=== PATIENT | female | born 1980 | race Caucasian/White ===

== ENCOUNTER 2017-12-22 19:40 | Inpatient (IN) | payer OTHER ==
--- NOTE | 2017-12-22 20:41 | OBADHP ---
Datetime: 12/22/2017 20:26 Admit Comment, IP Provider: 37yo edc 12/16 by 11 wk us presents for sched'd induction pobhx: denies pshx: denies nkda; denies food allergies medic: pnv shx:denies etoh, illicit drugs or tobacco I: 40.6wks inductiona p: admit for cervidel per dr ahumada Pelvic Type - PN: Adequate Extremities - PN: Normal Abdomen - PN: Normal Back - PN: Normal Lungs - PN: Normal Heart - PN: Abnormal Neurologic - PN: Normal HEENT - PN: Normal General - PN: Normal FHR - Baseline A Provider: 130 Membranes, Provider: Intact Comments, ACOG Physical Exam: gbs neg; hiv Vital Signs Provider Details: p 90-120 IP Chief Complaint: Scheduled induction of labor NICHD Variability Prov Fetus A: Moderate 6-25bpm NICHD Accel Fetus A IP Provider: [id number] FHR Category Provider Fetus A: Category I NICHD Decel Fetus A IP Provider: None Genitourinary Exam: Normal EGA AdmitDate IP: 40.6 IP Adm Impression: Postterm, intrauterine IP Admit Plan: Admit to unit; Initiate labor induction protocol
[2017-12-22] MEDS ORDERED: Lactated Ringer's 1,000 ML IV SCH (21:45)
[2017-12-22 22:32] LABS: BASO % 0.6 % (0.0-2.0); EOS # 0.1 K/uL (0.0-0.7); EOS % 1.6 % (0.0-4.0); HEMOGLOBIN 13.4 g/dL (11.0-16.0); LYMPH # 1.7 K/uL (1.0-4.3); LYMPH % 22.7 % (20.0-40.0); MEAN CELL VOLUME 93.7 fL (81.0-99.0); MEAN CORPUSCULAR HEMOGLOBIN 31.8 pg (27.0-31.0); MEAN CORPUSCULAR HGB CONC 33.9 g/dL (33.0-37.0); MEAN PLATELET VOLUME 8.1 fL (7.2-11.7); MONO # 0.5 K/uL (0.0-0.8); MONO % 6.6 % (0.0-10.0); NEUT # 5.2 K/uL (1.8-7.0); NEUT % 68.5 % (50.0-75.0); NRBC % 0.1 % (0.0-2.0); RBC 4.22 Mil/uL (3.80-5.20); RED CELL DISTRIBUTION WIDTH 13.1 % (11.5-14.5); WHITE BLOOD COUNT 7.6 K/uL (4.8-10.8)
[2017-12-23] MEDS: Lactated Ringer's 1,000 ML IV SCH ×2 (07:10→23:24)
--- NOTE | 2017-12-23 09:46 | OBPN ---
Datetime: 12/23/2017 09:42 IP Progress Impression: Normal progression of labor IP Informed Consent Obtain: Vaginal Delivery IP Procedures: Artificial ROM IP Progress Plan: Continue present management Membranes, Provider: Ruptured Amniotic Fluid Color, Provider: Clear FHR - Baseline A Provider: 150 Gestation - Est Wks by US: 41.0 Presentation-Admit: Vertex IP Progress Note Comment: pt iol fo rpost edc s/p cervidl 2cm s/p epdiural rapdily pgressed to 5cm variable not improved iwt hoxygen, left later AROM , clear 10cm VS as aboe V e10/100/0 A/P @ 41 wks GA Fully dilated iwth cat II -oxygen, left lateral IVH -strat pushing -antiicps Vital Signs Provider: Reviewed; Within Normal Limits NICHD Variability Prov Fetus A: Moderate 6-25bpm Dilatation, Provider: 8 Effacement, Provider: 100 Station, Provider: 0 NICHD Decel Fetus A IP Provider: Variable Datetime: 12/22/2017 20:26 Vital Signs Provider Details: p 90-120 NICHD Accel Fetus A IP Provider: [id number] FHR Category Provider Fetus A: Category I
[2017-12-23 10:31] LABS: SQUAMOUS EPITHIAL 2 /hpf (0-5); URINE BACTERIA RARE (<OCC); URINE BILIRUBIN NEGATIVE (NEGATIVE); URINE BLOOD 1+ (NEGATIVE); URINE CLARITY Clear (Clear); URINE COLOR Yellow (YELLOW); URINE GLUCOSE (UA) 1+ mg/dL (Normal); URINE LEUKOCYTE ESTERASE 1+ Leu/uL (Negative); URINE PROTEIN NEGATIVE (NEGATIVE); URINE UROBILINOGEN NORMAL mg/dL (0.2-1.0)
[2017-12-23] MEDS ORDERED: Thrombin Topical 20,000 Intl Units Spray Kit TOP ONE ×2 (11:48→13:00)
[2017-12-23] MEDS ORDERED: Thrombin Topical 5,000 Int Units Spray Kit TOP ONE ×2 (11:50)
[2017-12-23] MEDS ORDERED: ceFAZolin IV 2 gm in Dextrose 2 GM/50 ML BAG IVPB ONE (12:55)
--- NOTE | 2017-12-23 13:28 | CP.PCM.CON ---
<Esther Yuan - Last Filed: 12/23/17 19:22> History of Present Illness - History of Present Illness History of Present Illness: Critical Care Consult Note for Dr. Juan Jose Emmanuel Reason for consult: s/p vaginal delivery- hemorrhage s/p D/C and hysterectomy in DIC. This is a 37 year old female with PMHx of , who is now s/p post term induced vaginal delivery on 12/23/17 @ 10am who had hemorrhage s/p DC s /p hysterectomy admitted to the ICU intubated on PRVC 16/ 100/ 400/ 5 with Fentanyl, Versed. She received 5 units PRBCs and 1 FFP prior to arrival to ICU. Fibrinogen 57. Patient found to be in DIC. Massive transfusion protocol initiated 4 units PRBCs, 3 FFPs, 1 PLTs, and total 25 cryoprecipitate. Left IJ TLC was inserted, started on Levophed. Initiated empiric antibiotics. PMHx: Asthma PSHx: Unknown Meds: Unknown All: Unknown SHx: Unknown FHx: Unknown Meds Allergies/Adverse Reactions: Allergies Allergy/AdvReac Type Severity Reaction Status Date / Time ibuprofen Allergy Severe SHORTNESS Verified 12/22/17 22:10 OF BREATH mefenamic acid Allergy Severe SHORTNESS Verified 12/22/17 22:10 OF BREATH - Medications Medications: Current Medications Acetaminophen (Tylenol 650 Mg Supp) 650 mg NM Q6 PRN PRN Reason: Fever >100.4 F Lactated Ringer's (Lactated Ringer's) 1,000 mls @ 125 mls/hr IV .Q8H KELLEY Physical Exam - Constitutional Appears: Toxic - Head Exam Head Exam: ATRAUMATIC, NORMAL INSPECTION, NORMOCEPHALIC - Eye Exam Eye Exam: EOMI, Normal appearance, PERRL Pupil Exam: NORMAL ACCOMODATION - ENT Exam ENT Exam: Mucous Membranes Dry - Respiratory Exam Respiratory Exam: Clear to Auscultation Bilateral - Cardiovascular Exam Cardiovascular Exam: Tachycardia - GI/Abdominal Exam GI & Abdominal Exam: Normal Bowel Sounds, Soft - Rectal Exam Rectal Exam: Deferred - Extremities Exam Extremities exam: Positive for: normal inspection, pedal pulses present. Negative for: pedal edema, tenderness - Back Exam Back exam: NORMAL INSPECTION - Neurological Exam Neurological exam: Altered - Skin Skin Exam: Dry, Pallor, Warm Results - Labs Result Diagrams: 12/23/17 16:04 12/23/17 14:04 Labs: Laboratory Results - last 24 hr 12/22/17 12/22/17 12/22/17 22:24 22:24 22:24 WBC 7.6 RBC 4.22 Hgb 13.4 Hct 39.6 MCV 93.7 MCH 31.8 H MCHC 33.9 RDW 13.1 Plt Count 307 MPV 8.1 Neut % (Auto) 68.5 Lymph % (Auto) 22.7 Osborne % (Auto) 6.6 Eos % (Auto) 1.6 Baso % (Auto) 0.6 Neut # (Auto) 5.2 Lymph # (Auto) 1.7 Osborne # (Auto) 0.5 Eos # (Auto) 0.1 Baso # (Auto) 0.0 Urine Color Urine Clarity Urine pH Ur Specific [place] Urine Protein Urine Glucose (UA) Urine Ketones Urine Blood Urine Nitrate Urine Bilirubin Urine Urobilinogen Ur Leukocyte Esterase Urine WBC (Auto) Urine RBC (Auto) Ur Squamous Epith Cells Urine Bacteria RPR Nonreactive Hep Bs Antigen Blood Type B POSITIVE Antibody Screen Negative 12/23/17 12/23/17 12/23/17 10:09 10:09 11:12 WBC RBC Hgb Hct MCV MCH MCHC RDW Plt Count MPV Neut % (Auto) Lymph % (Auto) Osborne % (Auto) Eos % (Auto) Baso % (Auto) Neut # (Auto) Lymph # (Auto) [place] # (Auto) Eos # (Auto) Baso # (Auto) Urine Color Yellow Urine Clarity Clear Urine pH 6.0 Ur Specific [place] 1.013 Urine Protein Negative Urine Glucose (UA) 1+ Urine Ketones Negative Urine Blood 1+ H Urine Nitrate Negative Urine Bilirubin Negative Urine Urobilinogen Normal Ur Leukocyte Esterase 1+ H Urine WBC (Auto) 4 Urine RBC (Auto) 1 Ur Squamous Epith Cells 2 Urine Bacteria Rare RPR Hep Bs Antigen Negative Blood Type B POSITIVE Antibody Screen Negative Assessment & Plan - Assessment and Plan (Free Text) Assessment: This is a 37 year old female with PMHx of , who is now s/p post term induced vaginal delivery on 12/23/17 @ 10am who had hemorrhage s/p DC s /p hysterectomy admitted to the ICU intubated on PRVC 16/ 100/ 400/ 5 with Fentanyl, Versed. She received 5 units PRBCs and 1 FFP prior to arrival to ICU. Fibrinogen 57. Patient found to be in DIC. Massive transfusion protocol initiated 4 units PRBCs, 3 FFPs, 1 PLTs, and total 25 cryoprecipitate. Left IJ TLC was inserted, started on Levophed. Initiated empiric antibiotics. Plan: Neuro: - Intubated on PRVC 16/ 100/ 400/ 5 - Sedated with Fentanyl, Versed Cardio: A: Hypovolemic shock - LUKAS - negative - F/U ECHO Pulm: - Intubated on PRVC 16/ 100/ 400/ 5 - Sedated with Fentanyl, Versed ID: A: SIRS - Leukocytosis, left shift, bandemia, lactate 2.8 --> - Started Doxy, Rocephin, and Vanco empirically [employer] COORDINATOR: A: , Hemorrhage S/P D&C, S/P Hysterectomy in DIC - , unable to achieve hemostasis with Cytotec, Pitocin, Methergine - S/P D&C received Thrombin - continue to hemorrhage - S/P Hysterectomy in DIC, fibrinogen 57 - Massive transfusion protocol initiated 4 units PRBCs, 3 FFPs, 1 PLTs, and total 25 cryoprecipitate Heme/Onc: A: Acute Anemia 2/2 Hemorrhage - Baseline H/H: 13.4/ 39.6 - Started on Levophed - Ordered hemophilia workup Prophylaxis - SCDs, VTE c/i due to active hemorrhage - Lines: Left IJ TLC was inserted DW Dr. Juan Jose Emmanuel, Esther Yuan DO, PGY-1 Central Line Placement - Central Line Placement Indication: Emergent IV Access Central Line Placement: Left: Internal Jugular The Area Was Thoroughly Prepared With: Chlorhexidine, Draped Using Sterile Technique Area Was Locally Anesthetized With: Lidocaine 1% Procedure: Triple Lumen, Placed Using Standard Seldinger Technique, Catheter Was Sewn Into Place, Sterile Dressing Placed Over Line, Procedure Tolerated Well , CXR Ordered To Confirm Placement <Trevon Emmanuel - Last Filed: 12/24/17 13:21> Meds - Medications Medications: Current Medications Acetaminophen (Tylenol 650 Mg Supp) 650 mg NM Q6 PRN PRN Reason: Fever >100.4 F Hydromorphone HCl (Dilaudid) 0.5 mg IVP Q6H PRN PRN Reason: Pain, severe (8-10) Last Admin: 12/24/17 10:55 Dose: 0.5 mg Doxycycline Hyclate 100 mg/ (Sodium Chloride) 100 mls @ 100 mls/hr IVPB Q12H [facility] PRN Reason: Protocol Last Admin: 12/24/17 05:19 Dose: 100 mls/hr Sodium Chloride (Sodium Chloride 0.9%) 1,000 mls @ 75 mls/hr IV .[id number] [facility] Last Admin: 12/24/17 08:35 Dose: 75 mls/hr Piperacillin Sod/Tazobactam Sod (Zosyn 2.25 Gm Iv Premix) 2.25 gm in 50 mls @ 100 mls/hr IVPB Q6H [facility] PRN Reason: Protocol Last Admin: 12/24/17 10:00 Dose: 100 mls/hr Results - Vital Signs Recent Vital Signs: Last Vital Signs Temp 99.6 F 12/24/17 07:30 Pulse 97 H 12/24/17 11:02 Resp 19 12/24/17 11:02 BP 115/57 L 12/24/17 11:02 Pulse Ox 100 12/24/17 11:02 - Labs Result Diagrams: 12/24/17 04:33 12/24/17 04:33 Labs: Laboratory Results - last 24 hr 12/23/17 12/23/17 12/23/17 10:09 11:12 14:04 WBC RBC Hgb Hct MCV MCH MCHC RDW Plt Count MPV Neut % (Auto) Lymph % (Auto) Os[place] % (Auto) Eos % (Auto) Baso % (Auto) Neut # (Auto) Lymph # (Auto) [place] # (Auto) Eos # (Auto) Baso # (Auto) Neutrophils % (Manual) Band Neutrophils % Lymphocytes % (Manual) Monocytes % (Manual) Metamyelocytes % Platelet Estimate Hypochromasia (manual) Poikilocytosis (manual Anisocytosis (manual) PT 17.4 H INR 1.6 APTT 42 H Fibrinogen 57 L Puncture Site pCO2 pO2 HCO3 ABG pH ABG Total CO2 ABG O2 Saturation ABG Base Excess Gabriel Test ABG Potassium A-a O2 Difference Respiratory Index Glucose Lactate Vent Mode Mechanical Rate FiO2 Tidal Volume PEEP Sodium Potassium Chloride Carbon Dioxide Anion Gap BUN Creatinine Est GFR ( Amer) Est GFR (Non-Af Amer) POC Glucose (mg/dL) Random Glucose Lactic Acid Calcium Phosphorus Magnesium Total Bilirubin AST ALT Alkaline Phosphatase Troponin I NT-Pro-B Natriuret Pep Total Protein Albumin Globulin Albumin/Globulin Ratio Arterial Blood Potassium Urine Color Urine Clarity Urine pH Ur Specific [place] Urine Protein Urine Glucose (UA) Urine Ketones Urine Blood Urine Nitrate Urine Bilirubin Urine Urobilinogen Ur Leukocyte Esterase Urine WBC (Auto) Urine RBC (Auto) Random Vancomycin RPR Nonreactive Rubella IgG Antibody Positive Blood Type B POSITIVE Antibody Screen Negative 12/23/17 12/23/17 12/23/17 14:04 16:04 16:35 WBC 14.1 H D RBC 3.15 L Hgb 9.3 L D Hct 27.5 L MCV 87.4 D MCH 29.5 MCHC 33.7 RDW 15.1 H Plt Count 102 L D MPV 7.3 Neut % (Auto) 82.8 H Lymph % (Auto) 9.7 L [place] % (Auto) 7.2 Eos % (Auto) 0.0 Baso % (Auto) 0.3 Neut # (Auto) 11.7 H Lymph # (Auto) 1.4 [place] # (Auto) 1.0 H Eos # (Auto) 0.0 Baso # (Auto) 0.0 Neutrophils % (Manual) 71 Band Neutrophils % 15 H* Lymphocytes % (Manual) 9 L Monocytes % (Manual) 5 Metamyelocytes % Platelet Estimate Slightly decreased L Hypochromasia (manual) Poikilocytosis (manual Anisocytosis (manual) PT INR APTT Fibrinogen Puncture Site Fem line pCO2 30 L pO2 501 H HCO3 17.4 L ABG pH 7.31 L ABG Total CO2 16.0 L ABG O2 Saturation 99.9 H ABG Base Excess -9.8 L Gabriel Test Na ABG Potassium 5.7 H A-a O2 Difference 175.0 Respiratory Index 0.3 Glucose 131 H Lactate 2.8 H Vent Mode Prvc Mechanical Rate 16 FiO2 100.0 Tidal Volume 400 PEEP 5 Sodium 138 133.0 Potassium 4.5 Chloride 109 H 114.0 H Carbon Dioxide 18 L Anion Gap 16 BUN 8 Creatinine 0.7 Est GFR ( Amer) > 60 Est GFR (Non-Af Amer) > 60 POC Glucose (mg/dL) Random Glucose 115 H Lactic Acid Calcium 8.3 L Phosphorus Magnesium Total Bilirubin AST ALT Alkaline Phosphatase Troponin I 0.0550 NT-Pro-B Natriuret Pep 53.6 Total Protein Albumin Globulin Albumin/Globulin Ratio Arterial Blood Potassium 5.7 H Urine Color Urine Clarity Urine pH Ur Specific [place] Urine Protein Urine Glucose (UA) Urine Ketones Urine Blood Urine Nitrate Urine Bilirubin Urine Urobilinogen Ur Leukocyte Esterase Urine WBC (Auto) Urine RBC (Auto) Random Vancomycin RPR Rubella IgG Antibody Blood Type Antibody Screen 12/23/17 12/23/17 12/23/17 17:25 19:53 20:20 WBC 13.0 H RBC 3.02 L Hgb 8.9 L Hct 26.0 L MCV 86.1 MCH 29.3 MCHC 34.1 RDW 14.9 H Plt Count 84 L MPV 7.6 Neut % (Auto) 86.7 H Lymph % (Auto) 7.5 L [place] % (Auto) 5.7 Eos % (Auto) 0.0 Baso % (Auto) 0.1 Neut # (Auto) 11.2 H Lymph # (Auto) 1.0 [place] # (Auto) 0.7 Eos # (Auto) 0.0 Baso # (Auto) 0.0 Neutrophils % (Manual) 69 Band Neutrophils % 15 H* Lymphocytes % (Manual) 10 L Monocytes % (Manual) 4 Metamyelocytes % 2 H Platelet Estimate Decreased L Hypochromasia (manual) Poikilocytosis (manual Anisocytosis (manual) PT INR APTT Fibrinogen Puncture Site pCO2 pO2 HCO3 ABG pH ABG Total CO2 ABG O2 Saturation ABG Base Excess Gabriel Test ABG Potassium A-a O2 Difference Respiratory Index Glucose Lactate Vent Mode Mechanical Rate FiO2 Tidal Volume PEEP Sodium Potassium Chloride Carbon Dioxide Anion Gap BUN Creatinine Est GFR ( Amer) Est GFR (Non-Af Amer) POC Glucose (mg/dL) 121 H 121 H Random Glucose Lactic Acid Calcium Phosphorus Magnesium Total Bilirubin AST ALT Alkaline Phosphatase Troponin I NT-Pro-B Natriuret Pep Total Protein Albumin Globulin Albumin/Globulin Ratio Arterial Blood Potassium Urine Color Urine Clarity Urine pH Ur Specific [place] Urine Protein Urine Glucose (UA) Urine Ketones Urine Blood Urine Nitrate Urine Bilirubin Urine Urobilinogen Ur Leukocyte Esterase Urine WBC (Auto) Urine RBC (Auto) Random Vancomycin RPR Rubella IgG Antibody Blood Type Antibody Screen 12/23/17 12/23/17 12/23/17 20:20 20:20 20:20 WBC RBC Hgb Hct MCV MCH MCHC RDW Plt Count MPV Neut % (Auto) Lymph % (Auto) [place] % (Auto) Eos % (Auto) Baso % (Auto) Neut # (Auto) Lymph # (Auto) [place] # (Auto) Eos # (Auto) Baso # (Auto) Neutrophils % (Manual) Band Neutrophils % Lymphocytes % (Manual) Monocytes % (Manual) Metamyelocytes % Platelet Estimate Hypochromasia (manual) Poikilocytosis (manual Anisocytosis (manual) PT 13.2 H INR 1.2 APTT 32 D Fibrinogen Puncture Site pCO2 pO2 HCO3 ABG pH ABG Total CO2 ABG O2 Saturation ABG Base Excess Gabriel Test ABG Potassium A-a O2 Difference Respiratory Index Glucose Lactate Vent Mode Mechanical Rate FiO2 Tidal Volume PEEP Sodium 136 Potassium 6.2 H* D Chloride 111 H Carbon Dioxide 17 L Anion Gap 14 BUN 15 Creatinine 1.2 Est GFR ( Amer) > 60 Est GFR (Non-Af Amer) 51 POC Glucose (mg/dL) Random Glucose 111 H Lactic Acid Calcium 9.3 Phosphorus Magnesium Total Bilirubin 3.3 H AST 51 H ALT 28 Alkaline Phosphatase 46 Troponin I NT-Pro-B Natriuret Pep Total Protein 4.0 L Albumin 1.9 L Globulin 2.1 L Albumin/Globulin Ratio 0.9 L Arterial Blood Potassium Urine Color Sabrina Urine Clarity Hazy Urine pH 6.0 Ur Specific [place] 1.017 Urine Protein 2+ H Urine Glucose (UA) 1+ Urine Ketones Negative Urine Blood 2+ H Urine Nitrate Negative Urine Bilirubin Negative Urine Urobilinogen Normal Ur Leukocyte Esterase Neg Urine WBC (Auto) 2 Urine RBC (Auto) 3801 H Random Vancomycin RPR Rubella IgG Antibody Blood Type Antibody Screen 12/23/17 12/23/17 12/23/17 21:34 23:22 23:22 WBC 12.0 H RBC 2.82 L Hgb 8.3 L Hct 24.3 L MCV 86.2 MCH 29.5 MCHC 34.2 RDW 15.2 H Plt Count 78 L MPV 7.8 Neut % (Auto) 85.7 H Lymph % (Auto) 7.8 L [place] % (Auto) 6.2 Eos % (Auto) 0.0 Baso % (Auto) 0.3 Neut # (Auto) 10.3 H Lymph # (Auto) 0.9 L [place] # (Auto) 0.7 Eos # (Auto) 0.0 Baso # (Auto) 0.0 Neutrophils % (Manual) Band Neutrophils % Lymphocytes % (Manual) Monocytes % (Manual) Metamyelocytes % Platelet Estimate Hypochromasia (manual) Poikilocytosis (manual Anisocytosis (manual) PT 12.5 H INR 1.1 APTT 31 Fibrinogen Puncture Site Fem line pCO2 31 L pO2 273 H HCO3 18.1 L ABG pH 7.32 L ABG Total CO2 17.0 L ABG O2 Saturation 99.3 H ABG Base Excess -8.9 L Gabriel Test Na ABG Potassium 5.8 H A-a O2 Difference 116.0 Respiratory Index 0.4 Glucose 98 Lactate 3.0 H Vent Mode Prvc Mechanical Rate 22 FiO2 60.0 Tidal Volume 400 PEEP 5 Sodium 135.0 Potassium Chloride 113.0 H Carbon Dioxide Anion Gap BUN Creatinine Est GFR ( Amer) Est GFR (Non-Af Amer) POC Glucose (mg/dL) Random Glucose Lactic Acid Calcium Phosphorus Magnesium Total Bilirubin AST ALT Alkaline Phosphatase Troponin I NT-Pro-B Natriuret Pep Total Protein Albumin Globulin Albumin/Globulin Ratio Arterial Blood Potassium 5.8 H Urine Color Urine Clarity Urine pH Ur Specific [place] Urine Protein Urine Glucose (UA) Urine Ketones Urine Blood Urine Nitrate Urine Bilirubin Urine Urobilinogen Ur Leukocyte Esterase Urine WBC (Auto) Urine RBC (Auto) Random Vancomycin RPR Rubella IgG Antibody Blood Type Antibody Screen 12/23/17 12/23/17 12/24/17 23:22 23:43 04:14 WBC RBC Hgb Hct MCV MCH MCHC RDW Plt Count MPV Neut % (Auto) Lymph % (Auto) [place] % (Auto) Eos % (Auto) Baso % (Auto) Neut # (Auto) Lymph # (Auto) [place] # (Auto) Eos # (Auto) Baso # (Auto) Neutrophils % (Manual) Band Neutrophils % Lymphocytes % (Manual) Monocytes % (Manual) Metamyelocytes % Platelet Estimate Hypochromasia (manual) Poikilocytosis (manual Anisocytosis (manual) PT INR APTT Fibrinogen Puncture Site pCO2 pO2 HCO3 ABG pH ABG Total CO2 ABG O2 Saturation ABG Base Excess Gabriel Test ABG Potassium A-a O2 Difference Respiratory Index Glucose Lactate Vent Mode Mechanical Rate FiO2 Tidal Volume PEEP Sodium 134 Potassium 6.2 H* Chloride 111 H Carbon Dioxide 17 L Anion Gap 11 BUN 16 Creatinine 1.3 H Est GFR ( Amer) 56 Est GFR (Non-Af Amer) 46 POC Glucose (mg/dL) 97 111 H Random Glucose 89 Lactic Acid Calcium 8.4 L Phosphorus Magnesium Total Bilirubin AST ALT Alkaline Phosphatase Troponin I NT-Pro-B Natriuret Pep Total Protein Albumin Globulin Albumin/Globulin Ratio Arterial Blood Potassium Urine Color Urine Clarity Urine pH Ur Specific [place] Urine Protein Urine Glucose (UA) Urine Ketones Urine Blood Urine Nitrate Urine Bilirubin Urine Urobilinogen Ur Leukocyte Esterase Urine WBC (Auto) Urine RBC (Auto) Random Vancomycin RPR Rubella IgG Antibody Blood Type Antibody Screen 12/24/17 12/24/17 12/24/17 04:33 04:33 04:33 WBC 11.2 H RBC 2.92 L Hgb 8.5 L Hct 24.7 L MCV 84.8 MCH 29.0 MCHC 34.2 RDW 15.7 H Plt Count 67 L MPV 8.0 Neut % (Auto) 87.6 H Lymph % (Auto) 7.5 L [place] % (Auto) 4.7 Eos % (Auto) 0.0 Baso % (Auto) 0.2 Neut # (Auto) 9.8 H Lymph # (Auto) 0.8 L [place] # (Auto) 0.5 Eos # (Auto) 0.0 Baso # (Auto) 0.0 Neutrophils % (Manual) 84 H Band Neutrophils % 7 H Lymphocytes % (Manual) 5 L Monocytes % (Manual) 4 Metamyelocytes % Platelet Estimate Decreased L Hypochromasia (manual) Slight Poikilocytosis (manual Slight Anisocytosis (manual) Slight PT INR APTT Fibrinogen 356 D Puncture Site pCO2 pO2 HCO3 ABG pH ABG Total CO2 ABG O2 Saturation ABG Base Excess Gabriel Test ABG Potassium A-a O2 Difference Respiratory Index Glucose Lactate Vent Mode Mechanical Rate FiO2 Tidal Volume PEEP Sodium 135 Potassium 5.4 H Chloride 111 H Carbon Dioxide 18 L Anion Gap 11 BUN 19 H Creatinine 1.8 H Est GFR ( Amer) 38 Est GFR (Non-Af Amer) 32 POC Glucose (mg/dL) Random Glucose 103 Lactic Acid Calcium 8.2 L Phosphorus 5.3 H Magnesium 1.1 L Total Bilirubin 1.9 H AST 61 H ALT 33 Alkaline Phosphatase 45 Troponin I NT-Pro-B Natriuret Pep Total Protein 3.7 L Albumin 1.7 L Globulin 2.0 L Albumin/Globulin Ratio 0.9 L Arterial Blood Potassium Urine Color Urine Clarity Urine pH Ur Specific [place] Urine Protein Urine Glucose (UA) Urine Ketones Urine Blood Urine Nitrate Urine Bilirubin Urine Urobilinogen Ur Leukocyte Esterase Urine WBC (Auto) Urine RBC (Auto) Random Vancomycin RPR Rubella IgG Antibody Blood Type Antibody Screen 12/24/17 12/24/17 12/24/17 04:33 05:06 08:26 WBC RBC Hgb Hct MCV MCH MCHC RDW Plt Count MPV Neut % (Auto) Lymph % (Auto) [place] % (Auto) Eos % (Auto) Baso % (Auto) Neut # (Auto) Lymph # (Auto) [place] # (Auto) Eos # (Auto) Baso # (Auto) Neutrophils % (Manual) Band Neutrophils % Lymphocytes % (Manual) Monocytes % (Manual) Metamyelocytes % Platelet Estimate Hypochromasia (manual) Poikilocytosis (manual Anisocytosis (manual) PT INR APTT Fibrinogen Puncture Site [place] pCO2 32 L pO2 231 H HCO3 19.7 L ABG pH 7.35 ABG Total CO2 18.7 L ABG O2 Saturation 99.0 H ABG Base Excess -6.8 L Gabriel Test Na ABG Potassium 5.1 A-a O2 Difference 14.0 Respiratory Index 0.1 Glucose 98 Lactate 1.4 Vent Mode Prvc Mechanical Rate 22 FiO2 40.0 Tidal Volume 400 PEEP 5 Sodium 134.0 Potassium Chloride 111.0 H Carbon Dioxide Anion Gap BUN Creatinine Est GFR ( Amer) Est GFR (Non-Af Amer) POC Glucose (mg/dL) 109 Random Glucose Lactic Acid 1.3 Calcium Phosphorus Magnesium Total Bilirubin AST ALT Alkaline Phosphatase Troponin I NT-Pro-B Natriuret Pep Total Protein Albumin Globulin Albumin/Globulin Ratio Arterial Blood Potassium 5.1 Urine Color Urine Clarity Urine pH Ur Specific [place] Urine Protein Urine Glucose (UA) Urine Ketones Urine Blood Urine Nitrate Urine Bilirubin Urine Urobilinogen Ur Leukocyte Esterase Urine WBC (Auto) Urine RBC (Auto) Random Vancomycin RPR Rubella IgG Antibody Blood Type Antibody Screen 12/24/17 12/24/17 10:53 11:23 WBC RBC Hgb Hct MCV MCH MCHC RDW Plt Count MPV Neut % (Auto) Lymph % (Auto) [place] % (Auto) Eos % (Auto) Baso % (Auto) Neut # (Auto) Lymph # (Auto) [place] # (Auto) Eos # (Auto) Baso # (Auto) Neutrophils % (Manual) Band Neutrophils % Lymphocytes % (Manual) Monocytes % (Manual) Metamyelocytes % Platelet Estimate Hypochromasia (manual) Poikilocytosis (manual Anisocytosis (manual) PT INR APTT Fibrinogen Puncture Site pCO2 pO2 HCO3 ABG pH ABG Total CO2 ABG O2 Saturation ABG Base Excess Gabriel Test ABG Potassium A-a O2 Difference Respiratory Index Glucose Lactate Vent Mode Mechanical Rate FiO2 Tidal Volume PEEP Sodium Potassium Chloride Carbon Dioxide Anion Gap BUN Creatinine Est GFR ( Amer) Est GFR (Non-Af Amer) POC Glucose (mg/dL) 107 Random Glucose Lactic Acid Calcium Phosphorus Magnesium Total Bilirubin AST ALT Alkaline Phosphatase Troponin I NT-Pro-B Natriuret Pep Total Protein Albumin Globulin Albumin/Globulin Ratio Arterial Blood Potassium Urine Color Urine Clarity Urine pH Ur Specific [place] Urine Protein Urine Glucose (UA) Urine Ketones Urine Blood Urine Nitrate Urine Bilirubin Urine Urobilinogen Ur Leukocyte Esterase Urine WBC (Auto) Urine RBC (Auto) Random Vancomycin 11.9 RPR Rubella IgG Antibody Blood Type Antibody Screen Assessment & Plan - Assessment and Plan (Free Text) Plan: Around 4:15 Patient brought into ICU intubated. BP 80/40. tachycardic HR near 160s, ventilating at rr of 19. vitals reviewed b/l air entry (+)Ronchi tachy (+)S1 (+)S2 abd:soft, (+)dressing midling ext: edema and cold neuro: sedated ?paralized labs pending A/P Hypotensive shock: fluid resusitation attempted, after unsucessfull, central line placemen, using ultrasounf, eft femoral site reviewed and significant blood seen wrounf the fermoral artery with non-visualization of the femoral vein , right femoral site arterial line, right IJ peripheral line, left IJ collpasing IJ, -urgent massive transfusion protocol started with 10 units of cryo, 3 units of ffp and 4 units of blood and 1 unit of plateelts ordered -?sepsis: urgen started vanco/zosyn and doxycyline -serial lactic -tahycardia: ABG reveals no large A-a gradient, decrease Fio2 requirement, obtain echo, EKG and trop -?coagulopathry: pending pt/int/plt/fibrinogen -Calcium provided by anesthesia during or tranfusion -2 gm calcium to be infused adidtionally during blood transfusions -lactic q4hrs -Patient remains critical -use versed and fentanly for pain and anxiety control while on ventilator -Prognosis guarded as multiple diagnostic tests pending cc time 45 minutes, excluding any time spent on procedures. - Date & Time Date: 12/23/17 Time: 17:00
[2017-12-23 14:22] LABS: INR 1.6
[2017-12-23 14:26] LABS: BLOOD UREA NITROGEN 8 mg/dL (7-17); CALCIUM 8.3 mg/dl (8.6-10.4); GFR AFRICAN-AMERICAN > 60; GFR NON-AFRICAN AMERICAN > 60
[2017-12-23 14:39] LABS: B-TYPE NATRIURETIC PEPTIDE 53.6 pg/mL (0-450)
[2017-12-23 14:41] LABS: PROTHROMBIN TIME 17.4 SECONDS (9.7-12.2)
--- NOTE | 2017-12-23 14:56 | RAD ---
HISTORY: post operative COMPARISON: No prior. FINDINGS: BOWEL: No bowel obstruction appreciated on this exam. BONES: Normal. OTHER FINDINGS: A 6 cm radiopaque ring projects over the inferior hemipelvis. There are 2 radiopaque 13.7 ribbons also present in the central pelvis. IMPRESSION: A pelvic radio opacities are consistent with foreign bodies. Correlate clinically Comments: Study marked for PA review.
[2017-12-23 16:08] LABS: BASO % 0.3 % (0.0-2.0); LYMPH # 1.4 K/uL (1.0-4.3); LYMPH % 9.7 % (20.0-40.0); MEAN CELL VOLUME 87.4 fL (81.0-99.0); MEAN CORPUSCULAR HEMOGLOBIN 29.5 pg (27.0-31.0); MEAN CORPUSCULAR HGB CONC 33.7 g/dL (33.0-37.0); MEAN PLATELET VOLUME 7.3 fL (7.2-11.7); MONO % 7.2 % (0.0-10.0); NEUT # 11.7 K/uL (1.8-7.0); NEUT % 82.8 % (50.0-75.0); NRBC % 0.1 % (0.0-2.0); PLATELET COUNT 102 K/uL (130-400); RBC 3.15 Mil/uL (3.80-5.20); RED CELL DISTRIBUTION WIDTH 15.1 % (11.5-14.5); WHITE BLOOD COUNT 14.1 K/uL (4.8-10.8)
[2017-12-23 16:19] LABS: HEMOGLOBIN 9.3 g/dL (11.0-16.0)
[2017-12-23] MEDS ORDERED: Midazolam 50 mg/10 ml 100 MG in Dextrose 5% In Water 80 ML IV SCH (16:45)
[2017-12-23] MEDS ORDERED: Phytonadione 10 mg/ml Inj (Adult) IV STA (17:13)
[2017-12-23 17:45] LABS: BANDS 15 % (0-2); LYMPHOCYTE 9 % (20-40); MONOCYTE 5 % (0-10); NEUTROPHIL 71 % (50-75); PLATELET ESTIMATE SLIGHTLY DECREASED (NORMAL); TOTAL CELLS COUNTED 100
[2017-12-23 17:45] LABS: ARTERIAL BLOOD GAS HCO3 17.4 mmol/L (21-28); ARTERIAL BLOOD GAS O2 SAT 99.9 % (95-98); ARTERIAL BLOOD GAS PCO2 30 mm/Hg (35-45); ARTERIAL BLOOD GAS PH 7.31 (7.35-7.45); ARTERIAL BLOOD GAS PO2 501 mm/Hg (80-100)
--- NOTE | 2017-12-23 17:47 | OBDS ---
DELIVERY PERSONNEL Delivery Doctor: Juan Jose Emmanuel MD Corporate Traffic Manager: Ayaka Berry RN Anesthesiologist: Dr Llamas MATERNAL INFORMATION Delivery Anesthesia: Epidural Estimated Blood Loss (ml): 800 in delivery/2400 in OR Placenta Cultured: Yes Maternal Complications: Hemorrhage RN Comments: liveborn male ; patient taken to OR for stat D_C and hysterectomy Provider Comments: pt was fully dilated and pushing. verbacl consent given for vacumnand epitstomy g iven Category II tracing . Vacumn applied, head delivered with right mediolateral episotiomy. tight n uchal cord x 1 reducted. atruamtc, spoetneosus deiveyr of anteior followed by posteriore shoulder fol lowed by dleivye rof the body. both oral and nasal passages of the baby were bulb suctioned. umbiclus cord was clmaped and cut. baby hadned ot awaiitng peidatriicna. cord blood and cord gases colelcted and sent x 2. sponteous delivey of intact placent wtih membrnes. pitocn given. Bimina massages, uteur s boggy, Methergine IM x 1 given. bimnal massage. straght cathether bimian massage. pt transported ot OR. see operative note pt consneted for DXC , possible ex laparapoy possible hyserecotmy adn all other indicated procedur es. LABOR SUMMARY EDC: 12/16/2017 00:00 No. Babies in Womb: 1 Attempted: No Labor Anesthesia: Epidural LABOR INFORMATION Onset of Labor: 12/22/2017 07:55 Complete Dilatation: 12/23/2017 09:41 Cervical Ripening Agents: Cervidil (Annotations: cervidil pulled by Dr Emmanuel) Cervical Ripening Agents: cervidil intact Cervical Ripening Agents: Cervidil Group B Beta Strep: Negative Steroids Given: None Reason Steroids Not Administered: Not Applicable MEMBRANES Membranes Rupture Method: Artificial Amniotic Fluid Color: Clear Amniotic Fluid Amount: Moderate Amniotic Fluid Odor: None STAGES OF LABOR Stage 1 hrs: 25 Stage 1 min: 46 Stage 2 hrs: 0 Stage 2 min: 30 Stage 3 hrs: 0 Stage 3 min: 3 Total Time in Labor hrs: 26 Total Time in Labor min: 19 VAGINAL DELIVERY Episiotomy: Right Mediolateral Laceration Type: Cervical Laceration Repair: Yes Initial Vag Sponge Count: 11 Final Vag Sponge Count: 11 Initial Vag Sharps Count: 2 Final Vag Sharps Count: 2 Sponge Count Correct: Yes Sharps Count Correct: Yes BABY A INFORMATION Delivery Date/Time: 12/23/2017 10:11 Method of Delivery: Vaginal Born in Route : Yes : N/A Forceps: N/A Vacuum Extraction: Successful Shoulder Dystocia : Yes SHOULDER DYSTOCIA BABY A Delivery Date/Time: 12/23/2017 10:11 PRESENTATION/POSITION BABY A Presentation: Cephalic Cephalic Presentation: Vertex Vertex Position: Left Occipital Anterior Breech Presentation: N/A (Annotations: Data stored by [facility] on behalf of user) PLACENTA INFORMATION BABY A Placenta Delivery Time : 12/23/2017 10:14 Placenta Method of Delivery: Expressed Placenta Status: Delivered SCORES BABY A Heart Rate 1 min: >100 bpm Resp Effort 1 min: Good Cry Reflex Irritability 1 min: Cough or Sneeze or Pulls Away Muscle Tone 1 min: Some Flexion of Extremities Color 1 min: Body [place], Extremities Blue Resuscitation Effort 1 min: Tactile Stimulation SCORE 1 MIN: 8 Heart Rate 5 min: >100 bpm Resp Effort 5 min: Good Cry Reflex Irritability 5 min: Cough or Sneeze or Pulls Away Muscle Tone 5 min: Some Flexion of Extremities Color 5 min: Body [place], Extremities Blue Resuscitation Effort 5 min: N/A SCORE 5 MIN: 8 INFANT INFORMATION BABY A Gestational Age at Delivery: 41.0 Gestational Status: Term Infant Outcome : Liveborn Condition : Fair Infant Sex: Male IDENTIFICATION/MEDS BABY A ID Band Number: [id number] ID Band Location: Left Leg; Left Arm Sensor Applied: Yes Sensor Number: [id number] Sensor Location : Cord Clamp Vitamin K Given : Aquamephyton 1 mg IM; Left Thigh Erythromycin Given: Given Both Eyes WEIGHT/LENGTH BABY A Birthweight (gms): 3395 Weight (lb): 7 Infant Weight (oz): 8 Length Inches: 20.00 Length cms: 50.8 CORD INFORMATION BABY A No. Cord Vessels: 3 Nuchal Cord : Around Neck x1, Tight Cord Blood Taken: Yes Suction: Mouth; Nose
--- NOTE | 2017-12-23 17:48 | OBDS ---
DELIVERY PERSONNEL Delivery Doctor: Juan Jose Emmanuel MD School Speech Therapist: Ayaka Berry RN Anesthesiologist: Dr Llamas MATERNAL INFORMATION Delivery Anesthesia: Epidural Estimated Blood Loss (ml): 800 in delivery/2400 in OR Placenta Cultured: Yes Maternal Complications: Hemorrhage RN Comments: liveborn male ; patient taken to OR for stat D_C and hysterectomy Provider Comments: pt was fully dilated and pushing. verbacl consent given for vacumnand epitstomy g iven Category II tracing . Vacumn applied, head delivered with right mediolateral episotiomy. tight n uchal cord x 1 reducted. atruamtc, spoetneosus deiveyr of anteior followed by posteriore shoulder fol lowed by dleivye rof the body. both oral and nasal passages of the baby were bulb suctioned. umbiclus cord was clmaped and cut. baby hadned ot awaiitng peidatriicna. cord blood and cord gases colelcted and sent x 2. sponteous delivey of intact placent wtih membrnes. pitocn given. Bimina massages, uteur s boggy, Methergine IM x 1 given. bimnal massage. straght cathether bimian massage. pt transported ot OR. see operative note pt consneted for DXC , possible ex laparapoy possible hyserecotmy adn all other indicated procedur es. LABOR SUMMARY EDC: 12/16/2017 00:00 No. Babies in Womb: 1 Attempted: No Labor Anesthesia: Epidural LABOR INFORMATION Onset of Labor: 12/22/2017 07:55 Complete Dilatation: 12/23/2017 09:41 Cervical Ripening Agents: Cervidil (Annotations: cervidil pulled by Dr Emmanuel) Group B Beta Strep: Negative Steroids Given: None Reason Steroids Not Administered: Not Applicable MEMBRANES Membranes Rupture Method: Artificial Amniotic Fluid Color: Clear Amniotic Fluid Amount: Moderate Amniotic Fluid Odor: None STAGES OF LABOR Stage 1 hrs: 25 Stage 1 min: 46 Stage 2 hrs: 0 Stage 2 min: 30 Stage 3 hrs: 0 Stage 3 min: 3 Total Time in Labor hrs: 26 Total Time in Labor min: 19 VAGINAL DELIVERY Episiotomy: Right Mediolateral Laceration Type: Cervical Laceration Repair: Yes Initial Vag Sponge Count: 11 Final Vag Sponge Count: 11 Initial Vag Sharps Count: 2 Final Vag Sharps Count: 2 Sponge Count Correct: Yes Sharps Count Correct: Yes BABY A INFORMATION Delivery Date/Time: 12/23/2017 10:11 Method of Delivery: Vaginal Born in Route : Yes : N/A Forceps: N/A Vacuum Extraction: Successful Shoulder Dystocia : Yes SHOULDER DYSTOCIA BABY A Delivery Date/Time: 12/23/2017 10:11 PRESENTATION/POSITION BABY A Presentation: Cephalic Cephalic Presentation: Vertex Vertex Position: Left Occipital Anterior Breech Presentation: N/A (Annotations: Data stored by [facility] on behalf of user) PLACENTA INFORMATION BABY A Placenta Delivery Time : 12/23/2017 10:14 Placenta Method of Delivery: Expressed Placenta Status: Delivered SCORES BABY A Heart Rate 1 min: >100 bpm Resp Effort 1 min: Good Cry Reflex Irritability 1 min: Cough or Sneeze or Pulls Away Muscle Tone 1 min: Some Flexion of Extremities Color 1 min: Body [place], Extremities Blue Resuscitation Effort 1 min: Tactile Stimulation SCORE 1 MIN: 8 Heart Rate 5 min: >100 bpm Resp Effort 5 min: Good Cry Reflex Irritability 5 min: Cough or Sneeze or Pulls Away Muscle Tone 5 min: Some Flexion of Extremities Color 5 min: Body [place], Extremities Blue Resuscitation Effort 5 min: N/A SCORE 5 MIN: 8 INFANT INFORMATION BABY A Gestational Age at Delivery: 41.0 Gestational Status: Term Infant Outcome : Liveborn Infant Condition : Fair Sex: Male IDENTIFICATION/MEDS BABY A ID Band Number: [id number] ID Band Location: Left Leg; Left Arm Sensor Applied: Yes Sensor Number: [id number] Sensor Location : Cord Clamp Vitamin K Given : Aquamephyton 1 mg IM; Left Thigh Erythromycin Given: Given Both Eyes WEIGHT/LENGTH BABY A Infant Birthweight (gms): 3395 Infant Weight (lb): 7 Weight (oz): 8 Infant Length Inches: 20.00 Length cms: 50.8 CORD INFORMATION BABY A No. Cord Vessels: 3 Nuchal Cord : Around Neck x1, Tight Cord Blood Taken: Yes Suction: Mouth; Nose
--- NOTE | 2017-12-23 17:57 | PCM.SURG1 ---
Surgeon's Initial Post Op Note - Surgeon's Notes Surgeon: Christy Emmanuel MD Cherry Cutter: Hernandez Orona MD, Diana Wilder RN Type of Anesthesia: General Endo, Other Pre-Operative Diagnosis: Vaginal bleeding post vaginal delivery Operative Findings: prior to or: pt had vacuman assisted vaginal delivery with righ tmediolateral episotromy with contineud vaignal bleeding given metergine, pitocin adn cytotec. pt transported to or, exam under anestehsia signicant for cervical laceration 5cm on left side, repaired still with continued vaignal bleeidgn from cervix, and vaignal mucosa, gentle curretage performed with kristyn [place] under ultrasoudn guidance. massive blood transfusion protocol. contineud bleedign bright red decision made for exploratory laprasopcy, uteurs inspected enlarged and boggy, B chapman suture perofmred, still with bleeding, decision made for hysterecotmy , cystoscopy performed as well. transerport to ICU. 5 units prbc with 2 FFP intraoperative transfusion. please refer to anethesia in regards to additional medications adminstered. right mediolateral episdotmy preaired after cystsopcy, abodminla xray perromed. pt transported to ICU with vaignal packing. Both assitants of Dr Hernandez Orona and Diana Wilder were presnet for entire case and esesntial in hleping to stop bleeding, utrasound, retraction, gainiagn etnry, exposure, holidng bladder humphrey, ehping to idnetial critical structuers and closign and obtianed hemostasis. Post-Operative Diagnosis: bleeding, cervical laceration, uterine atony, DIC Operation Performed: Exam under anestehesia, repair of cervical laceration, Dilatin and currettage under ultrasound guidance, repair of right medicla lateral episitomy, explloarty laparatomy, total abodminal hysteercotmy, cystscopy Specimen/Specimens Removed: uterus Estimated Blood Loss: EBL {In ML}: 2,400 (800ml from delivery) Blood Products Given: PRBC (5 units PRBC), FFP (5 units probc, 2 FFP) Drains Used: No Drains Post-Op Condition: Fair Date of Surgery/Procedure: 12/23/17 Time of Surgery/Procedure: 09:45
[2017-12-23] MEDS ORDERED: Piperacill/Tazo 3.375gm in Dex 3.375 GM/50 ML BAG IVPB SCH (18:00)
[2017-12-23] MEDS ORDERED: Vancomycin 1 gm/NS 200 ml 1 GM/200 ML BAG IVPB SCH (18:00)
[2017-12-23 18:28] LABS: RAPID PLASMA REAGIN NONREACTIVE (NONREACTIVE)
[2017-12-23] MEDS: Piperacill/Tazo 3.375gm in Dex 3.375 GM/50 ML BAG IVPB SCH ×2 (19:30→23:53)
[2017-12-23 20:29] LABS: BASO % 0.1 % (0.0-2.0); HEMOGLOBIN 8.9 g/dL (11.0-16.0); LYMPH % 7.5 % (20.0-40.0); MEAN CELL VOLUME 86.1 fL (81.0-99.0); MEAN CORPUSCULAR HEMOGLOBIN 29.3 pg (27.0-31.0); MEAN CORPUSCULAR HGB CONC 34.1 g/dL (33.0-37.0); MEAN PLATELET VOLUME 7.6 fL (7.2-11.7); MONO # 0.7 K/uL (0.0-0.8); MONO % 5.7 % (0.0-10.0); NEUT # 11.2 K/uL (1.8-7.0); NEUT % 86.7 % (50.0-75.0); NRBC % 0.1 % (0.0-2.0); PLATELET COUNT 84 K/uL (130-400); RBC 3.02 Mil/uL (3.80-5.20); RED CELL DISTRIBUTION WIDTH 14.9 % (11.5-14.5)
[2017-12-23 20:32] LABS: URINE BILIRUBIN NEGATIVE (NEGATIVE); URINE BLOOD 2+ (NEGATIVE); URINE CLARITY Hazy (Clear); URINE COLOR Amber (YELLOW); URINE GLUCOSE (UA) 1+ mg/dL (Normal); URINE LEUKOCYTE ESTERASE NEG Leu/uL (Negative); URINE PROTEIN 2+ mg/dL (NEGATIVE); URINE UROBILINOGEN NORMAL mg/dL (0.2-1.0)
[2017-12-23 20:39] LABS: INR 1.2; PROTHROMBIN TIME 13.2 SECONDS (9.7-12.2)
[2017-12-23 20:42] LABS: AST/SGOT 51 U/L (14-36); CALCIUM 9.3 mg/dl (8.6-10.4)
[2017-12-23 20:49] LABS: ALB/GLOB RATIO 0.9 (1.0-2.1); ALBUMIN 1.9 g/dL (3.5-5.0); ALT/SGPT 28 U/L (9-52); BLOOD UREA NITROGEN 15 mg/dL (7-17); GFR AFRICAN-AMERICAN > 60; GFR NON-AFRICAN AMERICAN 51
[2017-12-23 21:12] LABS: BANDS 15 % (0-2); LYMPHOCYTE 10 % (20-40); METAMYELOCYTE 2 % (0-0); MONOCYTE 4 % (0-10); NEUTROPHIL 69 % (50-75); PLATELET ESTIMATE DECREASED (NORMAL); TOTAL CELLS COUNTED 100
[2017-12-23] MEDS ORDERED: Sodium Chloride 0.45% 1,000 ML IV SCH (21:30)
[2017-12-23 21:38] LABS: ARTERIAL BLOOD GAS HCO3 18.1 mmol/L (21-28); ARTERIAL BLOOD GAS O2 SAT 99.3 % (95-98); ARTERIAL BLOOD GAS PCO2 31 mm/Hg (35-45); ARTERIAL BLOOD GAS PH 7.32 (7.35-7.45); ARTERIAL BLOOD GAS PO2 273 mm/Hg (80-100)
[2017-12-23] MEDS ORDERED: Sod Polystyrene Sulf 15 gm/60 ml Susp PO ONE (22:11)
--- NOTE | 2017-12-23 22:25 | CP.PCM.PN ---
Subjective - Date & Time of Evaluation Date of Evaluation: 12/23/17 Time of Evaluation: 21:00 - Subjective Subjective: s/p post edc IOL with rapid progression s/p Vacumn assisted vaginal delivery with right medio-lateral episotiomy given non reassuring heart tracing placenta delivered and pt with persient bleeding, givne pitocin, methering, cytotect with bimanual massage. No hemabate given remote hx of asthma pt evaluated for retrained products, uterine atony , laceration and decision made to go to OR due to poor visualization and conitued bleeding and failure to approriatley respond to medical therapy. pt consented for dxc, hysterectomy and all possible indicated procedures cervical laceration noted and repaired, homeostasis, but uterine bleeding secondary to atony bedside intraop us to rul eout retained products and gentle currettage done under ultrasound guidance however pt with continued bleeding pt with hypotension and receving blood products pt ifomred of finding with life threatening bleedign and recommend ex lap possible hyserercotmy if unable to control bleeding midline vertical incisoin uteurs enlarged and very atonic B chapman suture unsucessful decision made to procedd to hysterecotmy, supracervical performed xray done intraop cystosocpy perfomred right mediolateral epistiotmy repaired xray repeated pt transported to ICU intubated: 5 units PRBC, 2 FFP, Pressory (please refer to anesthesia notes) pt seen at bedside twice at 5pm and 9pm most recent visit pt intubated, responds to commands, opens eyes, nods head and appers to improving from previous evaluation pt not tachycardic and levophed, anbiotics repeat labs reviewed bp improving spoke to ICU team, nurse, pt re: status pt is stable s/p additional blood, hb 8.9, plateltes 80s plan Massive transfusion protocol Antibiotics Urine output remove vaginal packing in am Do not remove epidural cathether as per anesthesia for now Thank you for all consults and coordination of care please reach out to me directly if needed Christy Emmanuel MD [phone] Objective - Vital Signs/Intake and Output Vital Signs (last 24 hours): Temp Pulse Resp BP Pulse Ox 97.9 F 89 20 102/65 98 12/23/17 22:09 12/23/17 22:09 12/23/17 22:09 12/23/17 22:09 12/23/17 22:09 Intake and Output: 12/23/17 12/24/17 18:59 06:59 Intake Total 1147 796.8 Output Total 120 240 Balance 1027 556.8 - Medications Medications: Current Medications Acetaminophen (Tylenol 650 Mg Supp) 650 mg NM Q6 PRN PRN Reason: Fever >100.4 F Fentanyl Citrate 2,500 mcg/ (Sodium Chloride) 250 mls @ 14.06 mls/hr IV .[id number] [facility]; 2 MCG/KG/HR PRN Reason: Protocol Last Titration: 12/23/17 18:00 Dose: 3 mcg/kg/hr, 21.09 mls/hr Midazolam HCl 100 mg/ Dextrose 100 mls @ 1.4 mls/hr IV .Q24H [facility]; 0.02 MG/KG/HR PRN Reason: Protocol Last Admin: 12/23/17 17:32 Dose: 0.01 mg/kg/hr, 1.4 mls/hr Norepinephrine Bitartrate 8 mg (/ Sodium Chloride) 258 mls @ 7.74 mls/hr IV .Q24H PRN; Protocol; 4 MCG/MIN PRN Reason: TITRATE PER MD ORDER Doxycycline Hyclate 100 mg/ (Sodium Chloride) 100 mls @ 100 mls/hr IVPB Q12H [facility] PRN Reason: Protocol Last Admin: 12/23/17 20:00 Dose: 100 mls/hr Vancomycin/Sodium Chloride (Vancomycin 1 Gm/Ns 200 Ml) 1 gm in 200 mls @ 133 mls/hr IVPB Q24H [facility] PRN Reason: Protocol Stop: 12/28/17 18:01 Last Admin: 12/23/17 20:29 Dose: 133 mls/hr Piperacillin Sod/Tazobactam Sod (Zosyn 3.375 Gm Iv Premix) 3.375 gm in 50 mls @ 100 mls/hr IVPB Q6H [facility] PRN Reason: Protocol Last Admin: 12/23/17 19:30 Dose: 100 mls/hr Sodium Chloride (Sodium Chloride 0.45%) 1,000 mls @ 100 mls/hr IV .Q10H [facility] Last Admin: 12/23/17 21:37 Dose: 100 mls/hr - Labs Labs: 12/23/17 20:20 12/23/17 20:20 PT 13.2 SECONDS (9.7-12.2) H 12/23/17 20:20 INR 1.2 12/23/17 20:20 APTT 32 SECONDS (21-34) D 12/23/17 20:20
[2017-12-23 23:25] LABS: BASO % 0.3 % (0.0-2.0); HEMOGLOBIN 8.3 g/dL (11.0-16.0); LYMPH # 0.9 K/uL (1.0-4.3); LYMPH % 7.8 % (20.0-40.0); MEAN CELL VOLUME 86.2 fL (81.0-99.0); MEAN CORPUSCULAR HEMOGLOBIN 29.5 pg (27.0-31.0); MEAN CORPUSCULAR HGB CONC 34.2 g/dL (33.0-37.0); MEAN PLATELET VOLUME 7.8 fL (7.2-11.7); MONO # 0.7 K/uL (0.0-0.8); MONO % 6.2 % (0.0-10.0); NEUT # 10.3 K/uL (1.8-7.0); NEUT % 85.7 % (50.0-75.0); NRBC % 0.1 % (0.0-2.0); RBC 2.82 Mil/uL (3.80-5.20); RED CELL DISTRIBUTION WIDTH 15.2 % (11.5-14.5)
[2017-12-23 23:33] LABS: INR 1.1; PROTHROMBIN TIME 12.5 SECONDS (9.7-12.2)
[2017-12-23 23:40] LABS: CALCIUM 8.4 mg/dl (8.6-10.4)
[2017-12-23] MEDS ORDERED: Albuterol 0.042% Inhal Sol (1.25 mg/3 mL) UD INH STA (23:53)
[2017-12-24 04:37] LABS: BASO % 0.2 % (0.0-2.0); HEMOGLOBIN 8.5 g/dL (11.0-16.0); LYMPH # 0.8 K/uL (1.0-4.3); LYMPH % 7.5 % (20.0-40.0); MEAN CELL VOLUME 84.8 fL (81.0-99.0); MEAN CORPUSCULAR HGB CONC 34.2 g/dL (33.0-37.0); MONO # 0.5 K/uL (0.0-0.8); MONO % 4.7 % (0.0-10.0); NEUT # 9.8 K/uL (1.8-7.0); NEUT % 87.6 % (50.0-75.0); PLATELET COUNT 67 K/uL (130-400); RBC 2.92 Mil/uL (3.80-5.20); RED CELL DISTRIBUTION WIDTH 15.7 % (11.5-14.5); WHITE BLOOD COUNT 11.2 K/uL (4.8-10.8)
[2017-12-24 04:50] LABS: ALB/GLOB RATIO 0.9 (1.0-2.1); ALBUMIN 1.7 g/dL (3.5-5.0); CALCIUM 8.2 mg/dl (8.6-10.4)
[2017-12-24 05:11] LABS: ARTERIAL BLOOD GAS HCO3 19.7 mmol/L (21-28); ARTERIAL BLOOD GAS PCO2 32 mm/Hg (35-45); ARTERIAL BLOOD GAS PH 7.35 (7.35-7.45); ARTERIAL BLOOD GAS PO2 231 mm/Hg (80-100); ARTERIAL BLOOD GAS TCO2 18.7 mmol/L (22-28)
[2017-12-24] MEDS: Piperacill/Tazo 3.375gm in Dex 3.375 GM/50 ML BAG IVPB SCH (05:22)
[2017-12-24] MEDS ORDERED: Sodium Chloride 0.45% 1,000 ML IV SCH (06:21)
--- NOTE | 2017-12-24 07:20 | CP.PCM.PN ---
Subjective - Date & Time of Evaluation Date of Evaluation: 12/24/17 Time of Evaluation: 06:45 - Subjective Subjective: Pt seen and examiend, awake and alert, +Itubation Objective - Vital Signs/Intake and Output Vital Signs (last 24 hours): Temp Pulse Resp BP Pulse Ox 99.6 F 95 H 18 97/53 L 100 12/24/17 04:00 12/24/17 07:02 12/24/17 07:02 12/24/17 07:02 12/24/17 07:02 Intake and Output: 12/24/17 12/24/17 06:59 18:59 Intake Total 3211.6 164 Output Total 540 30 Balance 2671.6 134 - Medications Medications: Current Medications Acetaminophen (Tylenol 650 Mg Supp) 650 mg MA Q6 PRN PRN Reason: Fever >100.4 F Fentanyl Citrate 2,500 mcg/ (Sodium Chloride) 250 mls @ 14.06 mls/hr IV .[id number] [facility]; 2 MCG/KG/HR PRN Reason: Protocol Last Titration: 12/23/17 20:00 Dose: 1.99 mcg/kg/hr, 14 mls/hr Midazolam HCl 100 mg/ Dextrose 100 mls @ 1.4 mls/hr IV .Q24H [facility]; 0.02 MG/KG/HR PRN Reason: Protocol Last Titration: 12/24/17 06:00 Dose: 0 mg/kg/hr, 0 mls/hr Norepinephrine Bitartrate 8 mg (/ Sodium Chloride) 258 mls @ 7.74 mls/hr IV .Q24H PRN; Protocol; 4 MCG/MIN PRN Reason: TITRATE PER MD ORDER Last Titration: 12/24/17 02:00 Dose: 0 mcg/min, 0 mls/hr Doxycycline Hyclate 100 mg/ (Sodium Chloride) 100 mls @ 100 mls/hr IVPB Q12H [facility] PRN Reason: Protocol Last Admin: 12/24/17 05:19 Dose: 100 mls/hr Vancomycin/Sodium Chloride (Vancomycin 1 Gm/Ns 200 Ml) 1 gm in 200 mls @ 133 mls/hr IVPB Q24H [facility] PRN Reason: Protocol Stop: 12/28/17 18:01 Last Admin: 12/23/17 20:29 Dose: 133 mls/hr Piperacillin Sod/Tazobactam Sod (Zosyn 3.375 Gm Iv Premix) 3.375 gm in 50 mls @ 100 mls/hr IVPB Q6H [facility] PRN Reason: Protocol Last Admin: 12/24/17 05:22 Dose: 100 mls/hr Sodium Chloride (Sodium Chloride 0.45%) 1,000 mls @ 150 mls/hr IV .[id number] [facility] Last Admin: 12/24/17 06:40 Dose: 150 mls/hr - Labs Labs: 12/24/17 04:33 12/24/17 04:33 PT 12.5 SECONDS (9.7-12.2) H 12/23/17 23:22 INR 1.1 12/23/17 23:22 APTT 31 SECONDS (21-34) 12/23/17 23:22 - Constitutional Appears: Well, No Acute Distress - Head Exam Head Exam: ATRAUMATIC, NORMAL INSPECTION - Eye Exam Eye Exam: EOMI Pupil Exam: NORMAL ACCOMODATION, PERRL - ENT Exam Additional comments: +ET tube - Respiratory Exam Respiratory Exam: Clear to Ausculation Bilateral, NORMAL BREATHING PATTERN - Cardiovascular Exam Cardiovascular Exam: +S1, +S2 - GI/Abdominal Exam GI & Abdominal Exam: Soft Additional comments: non tender, no guarding, no rebound tenderness, no rigidity, icsion c/d/i - Exam Additional comments: mild right labial edema, vaignla bpackign removed, good hemostasis - Psychiatric Exam Psychiatric exam: Normal Affect, Normal Mood - Skin Skin Exam: Normal Color Additional comments: 1=2+b/l edema, negative homans sign Assessment and Plan (1) Uterine atony Assessment & Plan: s/p vacuman assistne vagianl deliveyr with PPH falied medical therpay s/p hyserectomy POD #1 -s/p Mass transufion protocol -Man[place] as per ICU -VS, Urine Output, Labs -Vaginal packing removed -ET Tube: as per ICU Status: Acute
--- NOTE | 2017-12-24 07:53 | RAD ---
Chest x-ray single frontal view History: Intubated. Comparison: 12/23/2017 Findings: Lines and tubes in stable position. No focal infiltrate or effusion. Heart size within normal limits. Impression: Lines and tubes in stable position. No focal infiltrate or effusion. Heart size within normal limits.
--- NOTE | 2017-12-24 07:53 | RAD ---
Chest x-ray single frontal view History: Post intubation. Comparison: None available. Findings: Endotracheal tube extending into the mid thoracic trachea. Mild venous congestion. Right hilar prominence. Linear atelectatic changes in the lateral aspect of the right upper to mid lung zone. Biapical pleural thickening. Heart size within normal limits. Degenerative changes in the spine. Impression: Endotracheal tube extending into the mid thoracic trachea. Mild venous congestion. Right hilar prominence. Linear atelectatic changes in the lateral aspect of the right upper to mid lung zone. Biapical pleural thickening. Heart size within normal limits. Degenerative changes in the spine.
--- NOTE | 2017-12-24 08:04 | RAD ---
Chest x-ray single frontal view History: Line placement. Comparison: 12/23/2017 Findings: NG tube extending into the stomach. Endotracheal tube extending into the midthoracic trachea. Left central venous catheter extending into the right SVC. Rounded density projects over the left mid to lower lung zone of uncertain clinical etiology. Correlation with chest CT may be helpful if clinically indicated. Mild venous congestion. Left hilar prominence. Nodular density projecting over the medial aspect of the right lung apex. Heart size within normal limits. Impression: NG tube extending into the stomach. Endotracheal tube extending into the midthoracic trachea. Left central venous catheter extending into the right SVC. Rounded density projects over the left mid to lower lung zone of uncertain clinical etiology. Correlation with chest CT may be helpful if clinically indicated. Mild venous congestion. Left hilar prominence. Nodular density projecting over the medial aspect of the right lung apex. Heart size within normal limits.
[2017-12-24 08:23] LABS: LYMPHOCYTE 5 % (20-40); MONOCYTE 4 % (0-10); PLATELET ESTIMATE DECREASED (NORMAL); TOTAL CELLS COUNTED 100
[2017-12-24 08:24] LABS: ANISOCYTOSIS SLIGHT; HYPOCHROMIC SLIGHT; POIKILOCYTOSIS SLIGHT
[2017-12-24 08:25] LABS: BANDS 7 % (0-2); NEUTROPHIL 84 % (50-75)
[2017-12-24] MEDS: Sodium Chloride 0.9% 1,000 ML IV SCH ×2 (08:35→23:36)
[2017-12-24] MEDS: Piperacill/Tazo 2.25gm in Dex 2.25 GM/50 ML BAG IVPB SCH ×3 (10:00→21:35)
--- NOTE | 2017-12-24 10:38 | OP ---
PROCEDURE DATE: 12/23/2017 HISTORY: The patient was in induction of labor G2, P1 for post EDC. The patient was admitted with Cervidil and rapidly progressed from 2 to 5 cm, received an epidural, rapidly progressed to 8 cm with bulging membranes. AROM was performed. The patient was noted to have category II tracing despite resuscitation, oxygen and left lateral position and was found to be fully dilated. The patient started pushing for vaginal delivery. A successful vacuum assisted vaginal delivery was performed with the right mediolateral episiotomy after verbal consent was provided by the patient. Log Chipper Operator was present at the delivery. Cord blood and cord gases were collected. After spontaneous delivery of placenta, bimanual massage was performed and the uterus was noted to be boggy. The patient had been given Pitocin. Methergine was also given at that time. Bimanual exam and the bladder had been emptied. Following this, inspection of the laceration in addition to uterine atony and possible retained product was performed. Anesthesia was also performed. EBL of 800 for the vaginal delivery portion. Due to poor visualization and complete bleeding presumed to be from uterine atony, the patient was then transported to the OR where she was consented for dilation and curettage, possible exploratory laparotomy, possible hysterectomy and all other indicative procedures. INITIAL POSTOP NOTE SURGEON: Christy Emmanuel MD FORM MAKER: Hernandez Orona MD; and CRISTIAN German TYPE OF ANESTHESIA: General endotracheal in addition to initial epidural. PREOPERATIVE DIAGNOSES: Vaginal bleeding, postvaginal delivery, uterine atony. POSTOPERATIVE DIAGNOSES: bleeding, cervical laceration, uterine atony, suspected disseminated intravascular coagulation. OPERATION PERFORMED: Examination under anesthesia, repair of cervical laceration, dilation and curettage under ultrasound guidance, repair of right mediolateral episiotomy, exploratory laparotomy, total abdominal hysterectomy, hysteroscopy. OPERATIVE FINDINGS: As discussed above, prior to OR, the patient had vacuum-assisted vaginal delivery with right mediolateral episiotomy with continued vaginal bleeding, failed medical management, transferred to the OR in which exam under anesthesia, cervical laceration of 5 cm on the left side was repaired with a 2-0 chromic. Still had vaginal bleeding from the cervix and uterus. Gentle curettage was performed with the banjo curette under ultrasound guidance. Massive blood transfusion protocol initiated. The patient was transfused with blood. Continued bleeding made from uterine atony as well decision made for exploratory laparotomy. Uterus inspected in size after gaining entry, enlarged and boggy performed, still was bleeding. Decision made for hysterectomy. Cystoscopy performed as well. The patient was initially under epidural anesthesia, and once the ultrasound-guided D and C was not improving, the patient was counseled on life-threatening bleeding and need for emergent hysterectomy and agreed. Decision was made in conjunction with anesthesia. As the patient became hypotensive, pressors were started and additional help was called. Hysterectomy and cystoscopy were performed as well with bilateral jets, 5 units of PRBC with 2 FFP intraoperative transfusion. Please refer to anesthesia notes in regards to additional medications. Right mediolateral episiotomy was repaired after the cystoscopy and abdominal x-ray was performed. The patient was transferred to the ICU with vaginal packing and intubated. Both surgical assistants, Dr. Hernandez Orona and Diana Lambert, were present for the entire case. They were essential helping to stop bleeding, ultrasound, retraction, gaining entry, exposure, holding the bladder blade, helping to critical structures closing, and obtaining hemostasis. SPECIMEN REMOVED: Uterus. ESTIMATED BLOOD LOSS: 2400 mL from intraoperative and 800 from the delivery prior to entering the OR. BLOOD PRODUCTS: PRBC 5 units, FFP 2 units. DRAINS: Urine output. See anesthesia notes. DESCRIPTION OF PROCEDURE: The patient was transported to the operating room where she had epidural anesthesia. A Casey catheter was placed. A Puentes retractor was placed in anterior posterior fornix of the vagina. There was continued bleeding. Special retractors were then used and the cervix was noted to be lacerated. Ring forceps were applied along the cervical laceration and the cervix was then repaired with a 2-0 chromic. There was good hemostasis at the cervical laceration site but there was continued bleeding noted and an ultrasound was performed. A gentle curettage was done under ultrasound guidance with the banjo curette. There was still continued bleeding. Bimanual exam was performed. A packing was placed. The patient still had bleeding. The patient became hypotensive. The patient informed the findings of life-threatening bleeding, proceeding to exploratory laparotomy and hysterectomy, midline vertical. The patient was appropriately draped. The surgeon regloved. Attention was then turned to the abdomen in which a midline vertical incision was made with scalpel and carried in line to the underlying fascia with the scalpel. The rectus muscle was then bluntly in the midline using two Allis clamps. The peritoneum identified in a clear space, tented up with the Metzenbaum scissors and entered laterally and superiorly until there was good visualization. The enlarged boggy uterus was easily delivered through the incision, and at that point, suture was then initiated; however was unsuccessful. At that point, the decision for hysterectomy was made. The round ligament was identified and clamped with the Bay clamp divided, suture ligated and suspended for traction. The anterior portion of the broad ligament was then identified and opened medially towards the bladder flap. The bladder peritoneum was then dissected after lower uterine segment. The uterine ovarian ligament was then identified on either side and carefully ligated and clamped such that the ovaries and fallopian tubes were preserved. After an avascular portion was identified in the posterior leaf of the broad ligament, the suture was transfixed. The uterine arteries were then carefully isolated and dissected using Metzenbaum and pickups. The uterine arteries were palpable due to enlarged uterus from the . They were skeletonized. Bay clamps were then placed, so that they curved end is perpendicular to the vessel. The vessels were clamped in entirety. A Negrita straight clamp was also placed medially to reduce backbleeding from the uterus. Vessels were then transected such that the suture ligated tie was in place, twice on either side. The Bay clamps were removed. Next, the cardinal ligament and uterosacral ligaments were sequentially clamped, cut, and suture ligated. The cardinal ligament was then marching down to the level of the portion of the cervix after supracervical hysterectomy was performed, and the uterus was then amputated with Mily scissors and the cervical stump was then closed using 0 Vicryl interrupted sutures. The abdomen was thoroughly irrigated. There was good hemostasis noted. An x-ray was performed. Following this, thrombin was placed over all operative site. All pedicles were then carefully inspected. The peritoneum was reapproximated with 2-0 chromic. The rectus was reapproximated with 2-0 chromic. The fascia was reapproximated with PDS with 2 sutures meeting at the midline. Subcutaneous space was closed with 2-0 plain and the skin was reapproximated and closed with arnoldo. Following this, the abdomen was then cleaned and a clean pressure dressing was applied to the abdomen. Attention was then turned to the inferior aspect in which the Casey catheter was removed and cystoscopy was performed using a 70-degree scope. There were no sutures or masses noted within the bladder. Bilateral ureteral jets and cystoscope was then removed and a new Casey catheter was then inserted. The vaginal packing had been removed, and there was significant improvement with hemostasis. No gross bleeding noted. Mediolateral episiotomy was repaired with 2-[address] Vaginal packing was reapplied. An additional x-ray was then taken and the patient was transported to the ICU in fair condition, intubated at that point. Christy Emmanuel MD
--- NOTE | 2017-12-24 10:38 | CP.CCUPN ---
<Esther Yuan - Last Filed: 12/24/17 10:22> CCU Subjective - Physician Review Subjective (Free Text): 12/24/17 10:22 Patient seen and examined at bedside with ICU attending. Off sedation, tolerated CPAP trial, extubated 8:30. CCU Objective - Vital Signs / Intake & Output Vital Signs (Last 4 hours): Vital Signs Temp Pulse Resp BP Pulse Ox 12/24/17 08:02 92 H 7 L 90/49 L 100 12/24/17 08:00 99 H 8 L 100 12/24/17 07:30 99.6 F 100 12/24/17 07:02 95 H 18 97/53 L 100 Intake and Output (Last 8hrs): Intake & Output 12/23/17 12/24/17 12/24/17 22:59 06:59 14:59 Intake Total 2625.5 1733.1 328 Output Total 435 225 30 Balance 2190.5 1508.1 298 Weight 156 lb 3 oz Intake: IV 108 85 Intake, IV Amount 1422.5 1323.1 328 Left Hand 450 425 Left Internal Jugular 26.3 26.3 Left Medial Port 42 112 28 Left Proximal Port 300 700 300 Right External Jugular 600 50 left medial ivpb 4.2 9.8 0 Blood Product 1045 325 Red Blood Cells Cpd As1 325 Lr Unit [id number] Red Blood Cells Cpd As1 325 Lr Unit [id number] Other 50 Output: Urine 435 225 30 Urethral (Lee) 435 225 30 Emesis 0 0 Other: # Bowel Movements 0 0 0 - Physical Exam Head: Positive for: Atraumatic, Normocephalic Pupils: Positive for: PERRL Extroacular Muscles: Positive for: EOMI Conjunctiva: Positive for: Normal Mouth: Positive for: Moist Mucous Membranes Respiratory/Chest: Positive for: Clear to Auscultation Cardiovascular: Positive for: Regular Rate and Rhythm Abdomen: Positive for: Tenderness, Distention, Normal Bowel Sounds Upper Extremity: Positive for: Normal Inspection, NORMAL PULSES, Neurovascularly Intact Lower Extremity: Positive for: Normal Inspection, NORMAL PULSES, Neurovascularly Intact. Negative for: CALF TENDERNESS Neurological: Positive for: GCS=15, CN II-XII Intact Skin: Positive for: Warm, Dry Psychiatric: Positive for: Alert, Oriented x 3 - Medications Active Medications: Active Medications Generic Name Dose Route Start Last Admin Trade Name Freq PRN Reason Stop Dose Admin Acetaminophen 650 mg 12/22/17 21:38 Tylenol 650 Mg Supp DE Q6 PRN Fever >100.4 F Norepinephrine Bitartrate 8 mg 258 mls @ 7.74 mls/hr 12/23/17 16:54 12/24/17 02:00 / Sodium Chloride IV 0 mcg/min .Q24H PRN 0 mls/hr TITRATE PER MD ORDER Titration Protocol 4 MCG/MIN Doxycycline Hyclate 100 mg/ 100 mls @ 100 mls/hr 12/23/17 18:00 12/24/17 05: 19 Sodium Chloride IVPB 100 mls/hr Q12H KELLEY Administration Protocol Sodium Chloride 1,000 mls @ 75 mls/hr 12/24/17 08:45 12/24/17 08:35 Sodium Chloride 0.9% IV 75 mls/hr .[id number] KELLEY Administration Piperacillin Sod/Tazobactam Sod 2.25 gm in 50 mls @ 100 mls/hr 12/24/17 09:00 Zosyn 2.25 Gm Iv Premix IVPB Q6H [facility] Protocol - Patient Studies Lab Studies: Lab Studies 12/24/17 12/24/17 12/24/17 Range/Units 08:26 05:06 04:33 WBC (4.8-10.8) K/uL RBC (3.80-5.20) Mil/uL Hgb (11.0-16.0) g/dL Hct (34.0-47.0) % MCV (81.0-99.0) fL MCH (27.0-31.0) pg MCHC (33.0-37.0) g/dL RDW (11.5-14.5) % Plt Count (130-400) K/uL MPV (7.2-11.7) fL Neut % (Auto) (50.0-75.0) % Lymph % (Auto) (20.0-40.0) % [place] % (Auto) (0.0-10.0) % Eos % (Auto) (0.0-4.0) % Baso % (Auto) (0.0-2.0) % Neut # (Auto) (1.8-7.0) K/uL Lymph # (Auto) (1.0-4.3) K/uL [place] # (Auto) (0.0-0.8) K/uL Eos # (Auto) (0.0-0.7) K/uL Baso # (Auto) (0.0-0.2) K/uL Neutrophils % (Manual) (50-75) % Band Neutrophils % (0-2) % Lymphocytes % (Manual) (20-40) % Monocytes % (Manual) (0-10) % Metamyelocytes % (0-0) % Platelet Estimate (NORMAL) Hypochromasia (manual) Poikilocytosis (manual Anisocytosis (manual) PT (9.7-12.2) SECONDS INR APTT (21-34) SECONDS Fibrinogen (200-400) mg/dL Puncture Site Ronna pCO2 32 L (35-45) mm/Hg pO2 231 H (80-100) mm/Hg HCO3 19.7 L (21-28) mmol/L ABG pH 7.35 (7.35-7.45) ABG Total CO2 18.7 L (22-28) mmol/L ABG O2 Saturation 99.0 H (95-98) % ABG Base Excess -6.8 L (-2.0-3.0) mmol/L Gabriel Test Na ABG Potassium 5.1 (3.6-5.2) mmol/L A-a O2 Difference 14.0 mm/Hg Respiratory Index 0.1 Glucose 98 (65-105) mg/dl Lactate 1.4 (0.7-2.1) mmol/L Vent Mode Prvc Mechanical Rate 22 FiO2 40.0 % Tidal Volume 400 PEEP 5 Sodium 134.0 (132-148) mmol/L Potassium (3.6-5.2) mmol/L Chloride 111.0 H (98-107) mmol/L Carbon Dioxide (22-30) mmol/L Anion Gap (10-20) BUN (7-17) mg/dL Creatinine (0.7-1.2) mg/dL Est GFR ( Amer) Est GFR (Non-Af Amer) POC Glucose (mg/dL) 109 (65-110) mg/dL Random Glucose (65-105) mg/dL Lactic Acid 1.3 (0.7-2.1) mmol/L Calcium (8.6-10.4) mg/dl Phosphorus (2.5-4.5) mg/dL Magnesium (1.6-2.3) mg/dL Total Bilirubin (0.2-1.3) mg/dL AST (14-36) U/L ALT (9-52) U/L Alkaline Phosphatase (38-126) U/L Troponin I (0.00-0.120) ng/mL NT-Pro-B Natriuret Pep (0-450) pg/mL Total Protein (6.3-8.3) g/dL Albumin (3.5-5.0) g/dL Globulin (2.2-3.9) gm/dL Albumin/Globulin Ratio (1.0-2.1) Arterial Blood Potassium 5.1 (3.6-5.2) mmol/L Urine Color (YELLOW) Urine Clarity (Clear) Urine pH (5.0-8.0) Ur Specific [place] (1.003-1.030) Urine Protein (NEGATIVE) mg/dL Urine Glucose (UA) (Normal) mg/dL Urine Ketones (NEGATIVE) mg/dL Urine Blood (NEGATIVE) Urine Nitrate (NEGATIVE) Urine Bilirubin (NEGATIVE) Urine Urobilinogen (0.2-1.0) mg/dL Ur Leukocyte Esterase (Negative) Mahesh/uL Urine WBC (Auto) (0-5) /hpf Urine RBC (Auto) (0-3) /hpf Ur Squamous Epith Cells (0-5) /hpf Urine Bacteria (<OCC) RPR (NONREACTIVE) Hep Bs Antigen (NEGATIVE) Rubella IgG Antibody (POSITIVE) Blood Type Antibody Screen 12/24/17 12/24/17 12/24/17 Range/Units 04:33 04:33 04:33 WBC 11.2 H (4.8-10.8) K/uL RBC 2.92 L (3.80-5.20) Mil/uL Hgb 8.5 L (11.0-16.0) g/dL Hct 24.7 L (34.0-47.0) % MCV 84.8 (81.0-99.0) fL MCH 29.0 (27.0-31.0) pg MCHC 34.2 (33.0-37.0) g/dL RDW 15.7 H (11.5-14.5) % Plt Count 67 L (130-400) K/uL MPV 8.0 (7.2-11.7) fL Neut % (Auto) 87.6 H (50.0-75.0) % Lymph % (Auto) 7.5 L (20.0-40.0) % [place] % (Auto) 4.7 (0.0-10.0) % Eos % (Auto) 0.0 (0.0-4.0) % Baso % (Auto) 0.2 (0.0-2.0) % Neut # (Auto) 9.8 H (1.8-7.0) K/uL Lymph # (Auto) 0.8 L (1.0-4.3) K/uL [place] # (Auto) 0.5 (0.0-0.8) K/uL Eos # (Auto) 0.0 (0.0-0.7) K/uL Baso # (Auto) 0.0 (0.0-0.2) K/uL Neutrophils % (Manual) 84 H (50-75) % Band Neutrophils % 7 H (0-2) % Lymphocytes % (Manual) 5 L (20-40) % Monocytes % (Manual) 4 (0-10) % Metamyelocytes % (0-0) % Platelet Estimate Decreased L (NORMAL) Hypochromasia (manual) Slight Poikilocytosis (manual Slight Anisocytosis (manual) Slight PT (9.7-12.2) SECONDS INR APTT (21-34) SECONDS Fibrinogen 356 D (200-400) mg/dL Puncture Site pCO2 (35-45) mm/Hg pO2 (80-100) mm/Hg HCO3 (21-28) mmol/L ABG pH (7.35-7.45) ABG Total CO2 (22-28) mmol/L ABG O2 Saturation (95-98) % ABG Base Excess (-2.0-3.0) mmol/L Gabriel Test ABG Potassium (3.6-5.2) mmol/L A-a O2 Difference mm/Hg Respiratory Index Glucose (65-105) mg/dl Lactate (0.7-2.1) mmol/L Vent Mode Mechanical Rate FiO2 % Tidal Volume PEEP Sodium 135 (132-148) mmol/L Potassium 5.4 H (3.6-5.2) mmol/L Chloride 111 H (98-107) mmol/L Carbon Dioxide 18 L (22-30) mmol/L Anion Gap 11 (10-20) BUN 19 H (7-17) mg/dL Creatinine 1.8 H (0.7-1.2) mg/dL Est GFR ( Amer) 38 Est GFR (Non-Af Amer) 32 POC Glucose (mg/dL) (65-110) mg/dL Random Glucose 103 (65-105) mg/dL Lactic Acid (0.7-2.1) mmol/L Calcium 8.2 L (8.6-10.4) mg/dl Phosphorus 5.3 H (2.5-4.5) mg/dL Magnesium 1.1 L (1.6-2.3) mg/dL Total Bilirubin 1.9 H (0.2-1.3) mg/dL AST 61 H (14-36) U/L ALT 33 (9-52) U/L Alkaline Phosphatase 45 (38-126) U/L Troponin I (0.00-0.120) ng/mL NT-Pro-B Natriuret Pep (0-450) pg/mL Total Protein 3.7 L (6.3-8.3) g/dL Albumin 1.7 L (3.5-5.0) g/dL Globulin 2.0 L (2.2-3.9) gm/dL Albumin/Globulin Ratio 0.9 L (1.0-2.1) Arterial Blood Potassium (3.6-5.2) mmol/L Urine Color (YELLOW) Urine Clarity (Clear) Urine pH (5.0-8.0) Ur Specific [place] (1.003-1.030) Urine Protein (NEGATIVE) mg/dL Urine Glucose (UA) (Normal) mg/dL Urine Ketones (NEGATIVE) mg/dL Urine Blood (NEGATIVE) Urine Nitrate (NEGATIVE) Urine Bilirubin (NEGATIVE) Urine Urobilinogen (0.2-1.0) mg/dL Ur Leukocyte Esterase (Negative) Mahesh/uL Urine WBC (Auto) (0-5) /hpf Urine RBC (Auto) (0-3) /hpf Ur Squamous Epith Cells (0-5) /hpf Urine Bacteria (<OCC) RPR (NONREACTIVE) Hep Bs Antigen (NEGATIVE) Rubella IgG Antibody (POSITIVE) Blood Type Antibody Screen 12/24/17 12/23/17 12/23/17 Range/Units 04:14 23:43 23:22 WBC (4.8-10.8) K/uL RBC (3.80-5.20) Mil/uL Hgb (11.0-16.0) g/dL Hct (34.0-47.0) % MCV (81.0-99.0) fL MCH (27.0-31.0) pg MCHC (33.0-37.0) g/dL RDW (11.5-14.5) % Plt Count (130-400) K/uL MPV (7.2-11.7) fL Neut % (Auto) (50.0-75.0) % Lymph % (Auto) (20.0-40.0) % [place] % (Auto) (0.0-10.0) % Eos % (Auto) (0.0-4.0) % Baso % (Auto) (0.0-2.0) % Neut # (Auto) (1.8-7.0) K/uL Lymph # (Auto) (1.0-4.3) K/uL [place] # (Auto) (0.0-0.8) K/uL Eos # (Auto) (0.0-0.7) K/uL Baso # (Auto) (0.0-0.2) K/uL Neutrophils % (Manual) (50-75) % Band Neutrophils % (0-2) % Lymphocytes % (Manual) (20-40) % Monocytes % (Manual) (0-10) % Metamyelocytes % (0-0) % Platelet Estimate (NORMAL) Hypochromasia (manual) Poikilocytosis (manual Anisocytosis (manual) PT (9.7-12.2) SECONDS INR APTT (21-34) SECONDS Fibrinogen (200-400) mg/dL Puncture Site pCO2 (35-45) mm/Hg pO2 (80-100) mm/Hg HCO3 (21-28) mmol/L ABG pH (7.35-7.45) ABG Total CO2 (22-28) mmol/L ABG O2 Saturation (95-98) % ABG Base Excess (-2.0-3.0) mmol/L Gabriel Test ABG Potassium (3.6-5.2) mmol/L A-a O2 Difference mm/Hg Respiratory Index Glucose (65-105) mg/dl Lactate (0.7-2.1) mmol/L Vent Mode Mechanical Rate FiO2 % Tidal Volume PEEP Sodium 134 (132-148) mmol/L Potassium 6.2 H* (3.6-5.2) mmol/L Chloride 111 H (98-107) mmol/L Carbon Dioxide 17 L (22-30) mmol/L Anion Gap 11 (10-20) BUN 16 (7-17) mg/dL Creatinine 1.3 H (0.7-1.2) mg/dL Est GFR ( Amer) 56 Est GFR (Non-Af Amer) 46 POC Glucose (mg/dL) 111 H 97 (65-110) mg/dL Random Glucose 89 (65-105) mg/dL Lactic Acid (0.7-2.1) mmol/L Calcium 8.4 L (8.6-10.4) mg/dl Phosphorus (2.5-4.5) mg/dL Magnesium (1.6-2.3) mg/dL Total Bilirubin (0.2-1.3) mg/dL AST (14-36) U/L ALT (9-52) U/L Alkaline Phosphatase (38-126) U/L Troponin I (0.00-0.120) ng/mL NT-Pro-B Natriuret Pep (0-450) pg/mL Total Protein (6.3-8.3) g/dL Albumin (3.5-5.0) g/dL Globulin (2.2-3.9) gm/dL Albumin/Globulin Ratio (1.0-2.1) Arterial Blood Potassium (3.6-5.2) mmol/L Urine Color (YELLOW) Urine Clarity (Clear) Urine pH (5.0-8.0) Ur Specific [place] (1.003-1.030) Urine Protein (NEGATIVE) mg/dL Urine Glucose (UA) (Normal) mg/dL Urine Ketones (NEGATIVE) mg/dL Urine Blood (NEGATIVE) Urine Nitrate (NEGATIVE) Urine Bilirubin (NEGATIVE) Urine Urobilinogen (0.2-1.0) mg/dL Ur Leukocyte Esterase (Negative) Mahesh/uL Urine WBC (Auto) (0-5) /hpf Urine RBC (Auto) (0-3) /hpf Ur Squamous Epith Cells (0-5) /hpf Urine Bacteria (<OCC) RPR (NONREACTIVE) Hep Bs Antigen (NEGATIVE) Rubella IgG Antibody (POSITIVE) Blood Type Antibody Screen 12/23/17 12/23/17 12/23/17 Range/Units 23:22 23:22 21:34 WBC 12.0 H (4.8-10.8) K/uL RBC 2.82 L (3.80-5.20) Mil/uL Hgb 8.3 L (11.0-16.0) g/dL Hct 24.3 L (34.0-47.0) % MCV 86.2 (81.0-99.0) fL MCH 29.5 (27.0-31.0) pg MCHC 34.2 (33.0-37.0) g/dL RDW 15.2 H (11.5-14.5) % Plt Count 78 L (130-400) K/uL MPV 7.8 (7.2-11.7) fL Neut % (Auto) 85.7 H (50.0-75.0) % Lymph % (Auto) 7.8 L (20.0-40.0) % [place] % (Auto) 6.2 (0.0-10.0) % Eos % (Auto) 0.0 (0.0-4.0) % Baso % (Auto) 0.3 (0.0-2.0) % Neut # (Auto) 10.3 H (1.8-7.0) K/uL Lymph # (Auto) 0.9 L (1.0-4.3) K/uL [place] # (Auto) 0.7 (0.0-0.8) K/uL Eos # (Auto) 0.0 (0.0-0.7) K/uL Baso # (Auto) 0.0 (0.0-0.2) K/uL Neutrophils % (Manual) (50-75) % Band Neutrophils % (0-2) % Lymphocytes % (Manual) (20-40) % Monocytes % (Manual) (0-10) % Metamyelocytes % (0-0) % Platelet Estimate (NORMAL) Hypochromasia (manual) Poikilocytosis (manual Anisocytosis (manual) PT 12.5 H (9.7-12.2) SECONDS INR 1.1 APTT 31 (21-34) SECONDS Fibrinogen (200-400) mg/dL Puncture Site Fem line pCO2 31 L (35-45) mm/Hg pO2 273 H (80-100) mm/Hg HCO3 18.1 L (21-28) mmol/L ABG pH 7.32 L (7.35-7.45) ABG Total CO2 17.0 L (22-28) mmol/L ABG O2 Saturation 99.3 H (95-98) % ABG Base Excess -8.9 L (-2.0-3.0) mmol/L Gabriel Test Na ABG Potassium 5.8 H (3.6-5.2) mmol/L A-a O2 Difference 116.0 mm/Hg Respiratory Index 0.4 Glucose 98 (65-105) mg/dl Lactate 3.0 H (0.7-2.1) mmol/L Vent Mode Prvc Mechanical Rate 22 FiO2 60.0 % Tidal Volume 400 PEEP 5 Sodium 135.0 (132-148) mmol/L Potassium (3.6-5.2) mmol/L Chloride 113.0 H (98-107) mmol/L Carbon Dioxide (22-30) mmol/L Anion Gap (10-20) BUN (7-17) mg/dL Creatinine (0.7-1.2) mg/dL Est GFR ( Amer) Est GFR (Non-Af Amer) POC Glucose (mg/dL) (65-110) mg/dL Random Glucose (65-105) mg/dL Lactic Acid (0.7-2.1) mmol/L Calcium (8.6-10.4) mg/dl Phosphorus (2.5-4.5) mg/dL Magnesium (1.6-2.3) mg/dL Total Bilirubin (0.2-1.3) mg/dL AST (14-36) U/L ALT (9-52) U/L Alkaline Phosphatase (38-126) U/L Troponin I (0.00-0.120) ng/mL NT-Pro-B Natriuret Pep (0-450) pg/mL Total Protein (6.3-8.3) g/dL Albumin (3.5-5.0) g/dL Globulin (2.2-3.9) gm/dL Albumin/Globulin Ratio (1.0-2.1) Arterial Blood Potassium 5.8 H (3.6-5.2) mmol/L Urine Color (YELLOW) Urine Clarity (Clear) Urine pH (5.0-8.0) Ur Specific [place] (1.003-1.030) Urine Protein (NEGATIVE) mg/dL Urine Glucose (UA) (Normal) mg/dL Urine Ketones (NEGATIVE) mg/dL Urine Blood (NEGATIVE) Urine Nitrate (NEGATIVE) Urine Bilirubin (NEGATIVE) Urine Urobilinogen (0.2-1.0) mg/dL Ur Leukocyte Esterase (Negative) Mahesh/uL Urine WBC (Auto) (0-5) /hpf Urine RBC (Auto) (0-3) /hpf Ur Squamous Epith Cells (0-5) /hpf Urine Bacteria (<OCC) RPR (NONREACTIVE) Hep Bs Antigen (NEGATIVE) Rubella IgG Antibody (POSITIVE) Blood Type Antibody Screen 12/23/17 12/23/17 12/23/17 Range/Units 20:20 20:20 20:20 WBC (4.8-10.8) K/uL RBC (3.80-5.20) Mil/uL Hgb (11.0-16.0) g/dL Hct (34.0-47.0) % MCV (81.0-99.0) fL MCH (27.0-31.0) pg MCHC (33.0-37.0) g/dL RDW (11.5-14.5) % Plt Count (130-400) K/uL MPV (7.2-11.7) fL Neut % (Auto) (50.0-75.0) % Lymph % (Auto) (20.0-40.0) % [place] % (Auto) (0.0-10.0) % Eos % (Auto) (0.0-4.0) % Baso % (Auto) (0.0-2.0) % Neut # (Auto) (1.8-7.0) K/uL Lymph # (Auto) (1.0-4.3) K/uL [place] # (Auto) (0.0-0.8) K/uL Eos # (Auto) (0.0-0.7) K/uL Baso # (Auto) (0.0-0.2) K/uL Neutrophils % (Manual) (50-75) % Band Neutrophils % (0-2) % Lymphocytes % (Manual) (20-40) % Monocytes % (Manual) (0-10) % Metamyelocytes % (0-0) % Platelet Estimate (NORMAL) Hypochromasia (manual) Poikilocytosis (manual Anisocytosis (manual) PT 13.2 H (9.7-12.2) SECONDS INR 1.2 APTT 32 D (21-34) SECONDS Fibrinogen (200-400) mg/dL Puncture Site pCO2 (35-45) mm/Hg pO2 (80-100) mm/Hg HCO3 (21-28) mmol/L ABG pH (7.35-7.45) ABG Total CO2 (22-28) mmol/L ABG O2 Saturation (95-98) % ABG Base Excess (-2.0-3.0) mmol/L Gabriel Test ABG Potassium (3.6-5.2) mmol/L A-a O2 Difference mm/Hg Respiratory Index Glucose (65-105) mg/dl Lactate (0.7-2.1) mmol/L Vent Mode Mechanical Rate FiO2 % Tidal Volume PEEP Sodium 136 (132-148) mmol/L Potassium 6.2 H* D (3.6-5.2) mmol/L Chloride 111 H (98-107) mmol/L Carbon Dioxide 17 L (22-30) mmol/L Anion Gap 14 (10-20) BUN 15 (7-17) mg/dL Creatinine 1.2 (0.7-1.2) mg/dL Est GFR ( Amer) > 60 Est GFR (Non-Af Amer) 51 POC Glucose (mg/dL) (65-110) mg/dL Random Glucose 111 H (65-105) mg/dL Lactic Acid (0.7-2.1) mmol/L Calcium 9.3 (8.6-10.4) mg/dl Phosphorus (2.5-4.5) mg/dL Magnesium (1.6-2.3) mg/dL Total Bilirubin 3.3 H (0.2-1.3) mg/dL AST 51 H (14-36) U/L ALT 28 (9-52) U/L Alkaline Phosphatase 46 (38-126) U/L Troponin I (0.00-0.120) ng/mL NT-Pro-B Natriuret Pep (0-450) pg/mL Total Protein 4.0 L (6.3-8.3) g/dL Albumin 1.9 L (3.5-5.0) g/dL Globulin 2.1 L (2.2-3.9) gm/dL Albumin/Globulin Ratio 0.9 L (1.0-2.1) Arterial Blood Potassium (3.6-5.2) mmol/L Urine Color Sabrina (YELLOW) Urine Clarity Hazy (Clear) Urine pH 6.0 (5.0-8.0) Ur Specific [place] 1.017 (1.003-1.030) Urine Protein 2+ H (NEGATIVE) mg/dL Urine Glucose (UA) 1+ (Normal) mg/dL Urine Ketones Negative (NEGATIVE) mg/dL Urine Blood 2+ H (NEGATIVE) Urine Nitrate Negative (NEGATIVE) Urine Bilirubin Negative (NEGATIVE) Urine Urobilinogen Normal (0.2-1.0) mg/dL Ur Leukocyte Esterase Neg (Negative) Mahesh/uL Urine WBC (Auto) 2 (0-5) /hpf Urine RBC (Auto) 3801 H (0-3) /hpf Ur Squamous Epith Cells (0-5) /hpf Urine Bacteria (<OCC) RPR (NONREACTIVE) Hep Bs Antigen (NEGATIVE) Rubella IgG Antibody (POSITIVE) Blood Type Antibody Screen 12/23/17 12/23/17 12/23/17 Range/Units 20:20 19:53 17:25 WBC 13.0 H (4.8-10.8) K/uL RBC 3.02 L (3.80-5.20) Mil/uL Hgb 8.9 L (11.0-16.0) g/dL Hct 26.0 L (34.0-47.0) % MCV 86.1 (81.0-99.0) fL MCH 29.3 (27.0-31.0) pg MCHC 34.1 (33.0-37.0) g/dL RDW 14.9 H (11.5-14.5) % Plt Count 84 L (130-400) K/uL MPV 7.6 (7.2-11.7) fL Neut % (Auto) 86.7 H (50.0-75.0) % Lymph % (Auto) 7.5 L (20.0-40.0) % [place] % (Auto) 5.7 (0.0-10.0) % Eos % (Auto) 0.0 (0.0-4.0) % Baso % (Auto) 0.1 (0.0-2.0) % Neut # (Auto) 11.2 H (1.8-7.0) K/uL Lymph # (Auto) 1.0 (1.0-4.3) K/uL [place] # (Auto) 0.7 (0.0-0.8) K/uL Eos # (Auto) 0.0 (0.0-0.7) K/uL Baso # (Auto) 0.0 (0.0-0.2) K/uL Neutrophils % (Manual) 69 (50-75) % Band Neutrophils % 15 H* (0-2) % Lymphocytes % (Manual) 10 L (20-40) % Monocytes % (Manual) 4 (0-10) % Metamyelocytes % 2 H (0-0) % Platelet Estimate Decreased L (NORMAL) Hypochromasia (manual) Poikilocytosis (manual Anisocytosis (manual) PT (9.7-12.2) SECONDS INR APTT (21-34) SECONDS Fibrinogen (200-400) mg/dL Puncture Site pCO2 (35-45) mm/Hg pO2 (80-100) mm/Hg HCO3 (21-28) mmol/L ABG pH (7.35-7.45) ABG Total CO2 (22-28) mmol/L ABG O2 Saturation (95-98) % ABG Base Excess (-2.0-3.0) mmol/L Gabriel Test ABG Potassium (3.6-5.2) mmol/L A-a O2 Difference mm/Hg Respiratory Index Glucose (65-105) mg/dl Lactate (0.7-2.1) mmol/L Vent Mode Mechanical Rate FiO2 % Tidal Volume PEEP Sodium (132-148) mmol/L Potassium (3.6-5.2) mmol/L Chloride (98-107) mmol/L Carbon Dioxide (22-30) mmol/L Anion Gap (10-20) BUN (7-17) mg/dL Creatinine (0.7-1.2) mg/dL Est GFR ( Amer) Est GFR (Non-Af Amer) POC Glucose (mg/dL) 121 H 121 H (65-110) mg/dL Random Glucose (65-105) mg/dL Lactic Acid (0.7-2.1) mmol/L Calcium (8.6-10.4) mg/dl Phosphorus (2.5-4.5) mg/dL Magnesium (1.6-2.3) mg/dL Total Bilirubin (0.2-1.3) mg/dL AST (14-36) U/L ALT (9-52) U/L Alkaline Phosphatase (38-126) U/L Troponin I (0.00-0.120) ng/mL NT-Pro-B Natriuret Pep (0-450) pg/mL Total Protein (6.3-8.3) g/dL Albumin (3.5-5.0) g/dL Globulin (2.2-3.9) gm/dL Albumin/Globulin Ratio (1.0-2.1) Arterial Blood Potassium (3.6-5.2) mmol/L Urine Color (YELLOW) Urine Clarity (Clear) Urine pH (5.0-8.0) Ur Specific [place] (1.003-1.030) Urine Protein (NEGATIVE) mg/dL Urine Glucose (UA) (Normal) mg/dL Urine Ketones (NEGATIVE) mg/dL Urine Blood (NEGATIVE) Urine Nitrate (NEGATIVE) Urine Bilirubin (NEGATIVE) Urine Urobilinogen (0.2-1.0) mg/dL Ur Leukocyte Esterase (Negative) Mahesh/uL Urine WBC (Auto) (0-5) /hpf Urine RBC (Auto) (0-3) /hpf Ur Squamous Epith Cells (0-5) /hpf Urine Bacteria (<OCC) RPR (NONREACTIVE) Hep Bs Antigen (NEGATIVE) Rubella IgG Antibody (POSITIVE) Blood Type Antibody Screen 12/23/17 12/23/17 12/23/17 Range/Units 16:35 16:04 14:04 WBC 14.1 H D (4.8-10.8) K/uL RBC 3.15 L (3.80-5.20) Mil/uL Hgb 9.3 L D (11.0-16.0) g/dL Hct 27.5 L (34.0-47.0) % MCV 87.4 D (81.0-99.0) fL MCH 29.5 (27.0-31.0) pg MCHC 33.7 (33.0-37.0) g/dL RDW 15.1 H (11.5-14.5) % Plt Count 102 L D (130-400) K/uL MPV 7.3 (7.2-11.7) fL Neut % (Auto) 82.8 H (50.0-75.0) % Lymph % (Auto) 9.7 L (20.0-40.0) % [place] % (Auto) 7.2 (0.0-10.0) % Eos % (Auto) 0.0 (0.0-4.0) % Baso % (Auto) 0.3 (0.0-2.0) % Neut # (Auto) 11.7 H (1.8-7.0) K/uL Lymph # (Auto) 1.4 (1.0-4.3) K/uL [place] # (Auto) 1.0 H (0.0-0.8) K/uL Eos # (Auto) 0.0 (0.0-0.7) K/uL Baso # (Auto) 0.0 (0.0-0.2) K/uL Neutrophils % (Manual) 71 (50-75) % Band Neutrophils % 15 H* (0-2) % Lymphocytes % (Manual) 9 L (20-40) % Monocytes % (Manual) 5 (0-10) % Metamyelocytes % (0-0) % Platelet Estimate Slightly decreased L (NORMAL) Hypochromasia (manual) Poikilocytosis (manual Anisocytosis (manual) PT (9.7-12.2) SECONDS INR APTT (21-34) SECONDS Fibrinogen (200-400) mg/dL Puncture Site Fem line pCO2 30 L (35-45) mm/Hg pO2 501 H (80-100) mm/Hg HCO3 17.4 L (21-28) mmol/L ABG pH 7.31 L (7.35-7.45) ABG Total CO2 16.0 L (22-28) mmol/L ABG O2 Saturation 99.9 H (95-98) % ABG Base Excess -9.8 L (-2.0-3.0) mmol/L Gabriel Test Na ABG Potassium 5.7 H (3.6-5.2) mmol/L A-a O2 Difference 175.0 mm/Hg Respiratory Index 0.3 Glucose 131 H (65-105) mg/dl Lactate 2.8 H (0.7-2.1) mmol/L Vent Mode Prvc Mechanical Rate 16 FiO2 100.0 % Tidal Volume 400 PEEP 5 Sodium 133.0 138 (132-148) mmol/L Potassium 4.5 (3.6-5.2) mmol/L Chloride 114.0 H 109 H (98-107) mmol/L Carbon Dioxide 18 L (22-30) mmol/L Anion Gap 16 (10-20) BUN 8 (7-17) mg/dL Creatinine 0.7 (0.7-1.2) mg/dL Est GFR ( Amer) > 60 Est GFR (Non-Af Amer) > 60 POC Glucose (mg/dL) (65-110) mg/dL Random Glucose 115 H (65-105) mg/dL Lactic Acid (0.7-2.1) mmol/L Calcium 8.3 L (8.6-10.4) mg/dl Phosphorus (2.5-4.5) mg/dL Magnesium (1.6-2.3) mg/dL Total Bilirubin (0.2-1.3) mg/dL AST (14-36) U/L ALT (9-52) U/L Alkaline Phosphatase (38-126) U/L Troponin I 0.0550 (0.00-0.120) ng/mL NT-Pro-B Natriuret Pep 53.6 (0-450) pg/mL Total Protein (6.3-8.3) g/dL Albumin (3.5-5.0) g/dL Globulin (2.2-3.9) gm/dL Albumin/Globulin Ratio (1.0-2.1) Arterial Blood Potassium 5.7 H (3.6-5.2) mmol/L Urine Color (YELLOW) Urine Clarity (Clear) Urine pH (5.0-8.0) Ur Specific [place] (1.003-1.030) Urine Protein (NEGATIVE) mg/dL Urine Glucose (UA) (Normal) mg/dL Urine Ketones (NEGATIVE) mg/dL Urine Blood (NEGATIVE) Urine Nitrate (NEGATIVE) Urine Bilirubin (NEGATIVE) Urine Urobilinogen (0.2-1.0) mg/dL Ur Leukocyte Esterase (Negative) Mahesh/uL Urine WBC (Auto) (0-5) /hpf Urine RBC (Auto) (0-3) /hpf Ur Squamous Epith Cells (0-5) /hpf Urine Bacteria (<OCC) RPR (NONREACTIVE) Hep Bs Antigen (NEGATIVE) Rubella IgG Antibody (POSITIVE) Blood Type Antibody Screen 12/23/17 12/23/17 12/23/17 Range/Units 14:04 11:12 10:09 WBC (4.8-10.8) K/uL RBC (3.80-5.20) Mil/uL Hgb (11.0-16.0) g/dL Hct (34.0-47.0) % MCV (81.0-99.0) fL MCH (27.0-31.0) pg MCHC (33.0-37.0) g/dL RDW (11.5-14.5) % Plt Count (130-400) K/uL MPV (7.2-11.7) fL Neut % (Auto) (50.0-75.0) % Lymph % (Auto) (20.0-40.0) % [place] % (Auto) (0.0-10.0) % Eos % (Auto) (0.0-4.0) % Baso % (Auto) (0.0-2.0) % Neut # (Auto) (1.8-7.0) K/uL Lymph # (Auto) (1.0-4.3) K/uL [place] # (Auto) (0.0-0.8) K/uL Eos # (Auto) (0.0-0.7) K/uL Baso # (Auto) (0.0-0.2) K/uL Neutrophils % (Manual) (50-75) % Band Neutrophils % (0-2) % Lymphocytes % (Manual) (20-40) % Monocytes % (Manual) (0-10) % Metamyelocytes % (0-0) % Platelet Estimate (NORMAL) Hypochromasia (manual) Poikilocytosis (manual Anisocytosis (manual) PT 17.4 H (9.7-12.2) SECONDS INR 1.6 APTT 42 H (21-34) SECONDS Fibrinogen 57 L (200-400) mg/dL Puncture Site pCO2 (35-45) mm/Hg pO2 (80-100) mm/Hg HCO3 (21-28) mmol/L ABG pH (7.35-7.45) ABG Total CO2 (22-28) mmol/L ABG O2 Saturation (95-98) % ABG Base Excess (-2.0-3.0) mmol/L Gabriel Test ABG Potassium (3.6-5.2) mmol/L A-a O2 Difference mm/Hg Respiratory Index Glucose (65-105) mg/dl Lactate (0.7-2.1) mmol/L Vent Mode Mechanical Rate FiO2 % Tidal Volume PEEP Sodium (132-148) mmol/L Potassium (3.6-5.2) mmol/L Chloride (98-107) mmol/L Carbon Dioxide (22-30) mmol/L Anion Gap (10-20) BUN (7-17) mg/dL Creatinine (0.7-1.2) mg/dL Est GFR ( Amer) Est GFR (Non-Af Amer) POC Glucose (mg/dL) (65-110) mg/dL Random Glucose (65-105) mg/dL Lactic Acid (0.7-2.1) mmol/L Calcium (8.6-10.4) mg/dl Phosphorus (2.5-4.5) mg/dL Magnesium (1.6-2.3) mg/dL Total Bilirubin (0.2-1.3) mg/dL AST (14-36) U/L ALT (9-52) U/L Alkaline Phosphatase (38-126) U/L Troponin I (0.00-0.120) ng/mL NT-Pro-B Natriuret Pep (0-450) pg/mL Total Protein (6.3-8.3) g/dL Albumin (3.5-5.0) g/dL Globulin (2.2-3.9) gm/dL Albumin/Globulin Ratio (1.0-2.1) Arterial Blood Potassium (3.6-5.2) mmol/L Urine Color (YELLOW) Urine Clarity (Clear) Urine pH (5.0-8.0) Ur Specific [place] (1.003-1.030) Urine Protein (NEGATIVE) mg/dL Urine Glucose (UA) (Normal) mg/dL Urine Ketones (NEGATIVE) mg/dL Urine Blood (NEGATIVE) Urine Nitrate (NEGATIVE) Urine Bilirubin (NEGATIVE) Urine Urobilinogen (0.2-1.0) mg/dL Ur Leukocyte Esterase (Negative) Mahesh/uL Urine WBC (Auto) (0-5) /hpf Urine RBC (Auto) (0-3) /hpf Ur Squamous Epith Cells (0-5) /hpf Urine Bacteria (<OCC) RPR (NONREACTIVE) Hep Bs Antigen Negative (NEGATIVE) Rubella IgG Antibody (POSITIVE) Blood Type B POSITIVE Antibody Screen Negative 12/23/17 12/23/17 Range/Units 10:09 10:09 WBC (4.8-10.8) K/uL RBC (3.80-5.20) Mil/uL Hgb (11.0-16.0) g/dL Hct (34.0-47.0) % MCV (81.0-99.0) fL MCH (27.0-31.0) pg MCHC (33.0-37.0) g/dL RDW (11.5-14.5) % Plt Count (130-400) K/uL MPV (7.2-11.7) fL Neut % (Auto) (50.0-75.0) % Lymph % (Auto) (20.0-40.0) % [place] % (Auto) (0.0-10.0) % Eos % (Auto) (0.0-4.0) % Baso % (Auto) (0.0-2.0) % Neut # (Auto) (1.8-7.0) K/uL Lymph # (Auto) (1.0-4.3) K/uL [place] # (Auto) (0.0-0.8) K/uL Eos # (Auto) (0.0-0.7) K/uL Baso # (Auto) (0.0-0.2) K/uL Neutrophils % (Manual) (50-75) % Band Neutrophils % (0-2) % Lymphocytes % (Manual) (20-40) % Monocytes % (Manual) (0-10) % Metamyelocytes % (0-0) % Platelet Estimate (NORMAL) Hypochromasia (manual) Poikilocytosis (manual Anisocytosis (manual) PT (9.7-12.2) SECONDS INR APTT (21-34) SECONDS Fibrinogen (200-400) mg/dL Puncture Site pCO2 (35-45) mm/Hg pO2 (80-100) mm/Hg HCO3 (21-28) mmol/L ABG pH (7.35-7.45) ABG Total CO2 (22-28) mmol/L ABG O2 Saturation (95-98) % ABG Base Excess (-2.0-3.0) mmol/L Gabriel Test ABG Potassium (3.6-5.2) mmol/L A-a O2 Difference mm/Hg Respiratory Index Glucose (65-105) mg/dl Lactate (0.7-2.1) mmol/L Vent Mode Mechanical Rate FiO2 % Tidal Volume PEEP Sodium (132-148) mmol/L Potassium (3.6-5.2) mmol/L Chloride (98-107) mmol/L Carbon Dioxide (22-30) mmol/L Anion Gap (10-20) BUN (7-17) mg/dL Creatinine (0.7-1.2) mg/dL Est GFR ( Amer) Est GFR (Non-Af Amer) POC Glucose (mg/dL) (65-110) mg/dL Random Glucose (65-105) mg/dL Lactic Acid (0.7-2.1) mmol/L Calcium (8.6-10.4) mg/dl Phosphorus (2.5-4.5) mg/dL Magnesium (1.6-2.3) mg/dL Total Bilirubin (0.2-1.3) mg/dL AST (14-36) U/L ALT (9-52) U/L Alkaline Phosphatase (38-126) U/L Troponin I (0.00-0.120) ng/mL NT-Pro-B Natriuret Pep (0-450) pg/mL Total Protein (6.3-8.3) g/dL Albumin (3.5-5.0) g/dL Globulin (2.2-3.9) gm/dL Albumin/Globulin Ratio (1.0-2.1) Arterial Blood Potassium (3.6-5.2) mmol/L Urine Color Yellow (YELLOW) Urine Clarity Clear (Clear) Urine pH 6.0 (5.0-8.0) Ur Specific [place] 1.013 (1.003-1.030) Urine Protein Negative (NEGATIVE) mg/dL Urine Glucose (UA) 1+ (Normal) mg/dL Urine Ketones Negative (NEGATIVE) mg/dL Urine Blood 1+ H (NEGATIVE) Urine Nitrate Negative (NEGATIVE) Urine Bilirubin Negative (NEGATIVE) Urine Urobilinogen Normal (0.2-1.0) mg/dL Ur Leukocyte Esterase 1+ H (Negative) Mahesh/uL Urine WBC (Auto) 4 (0-5) /hpf Urine RBC (Auto) 1 (0-3) /hpf Ur Squamous Epith Cells 2 (0-5) /hpf Urine Bacteria Rare (<OCC) RPR Nonreactive (NONREACTIVE) Hep Bs Antigen (NEGATIVE) Rubella IgG Antibody Positive (POSITIVE) Blood Type Antibody Screen Laboratory Results - last 24 hr 12/23/17 12/23/17 12/23/17 10:09 10:09 10:09 WBC RBC Hgb Hct MCV MCH MCHC RDW Plt Count MPV Neut % (Auto) Lymph % (Auto) [place] % (Auto) Eos % (Auto) Baso % (Auto) Neut # (Auto) Lymph # (Auto) [place] # (Auto) Eos # (Auto) Baso # (Auto) Neutrophils % (Manual) Band Neutrophils % Lymphocytes % (Manual) Monocytes % (Manual) Metamyelocytes % Platelet Estimate Hypochromasia (manual) Poikilocytosis (manual Anisocytosis (manual) PT INR APTT Fibrinogen Puncture Site pCO2 pO2 HCO3 ABG pH ABG Total CO2 ABG O2 Saturation ABG Base Excess Gabriel Test ABG Potassium A-a O2 Difference Respiratory Index Glucose Lactate Vent Mode Mechanical Rate FiO2 Tidal Volume PEEP Sodium Potassium Chloride Carbon Dioxide Anion Gap BUN Creatinine Est GFR ( Amer) Est GFR (Non-Af Amer) POC Glucose (mg/dL) Random Glucose Lactic Acid Calcium Phosphorus Magnesium Total Bilirubin AST ALT Alkaline Phosphatase Troponin I NT-Pro-B Natriuret Pep Total Protein Albumin Globulin Albumin/Globulin Ratio Arterial Blood Potassium Urine Color Yellow Urine Clarity Clear Urine pH 6.0 Ur Specific [place] 1.013 Urine Protein Negative Urine Glucose (UA) 1+ Urine Ketones Negative Urine Blood 1+ H Urine Nitrate Negative Urine Bilirubin Negative Urine Urobilinogen Normal Ur Leukocyte Esterase 1+ H Urine WBC (Auto) 4 Urine RBC (Auto) 1 Ur Squamous Epith Cells 2 Urine Bacteria Rare RPR Nonreactive Hep Bs Antigen Negative Rubella IgG Antibody Positive Blood Type Antibody Screen 12/23/17 12/23/17 12/23/17 11:12 14:04 14:04 WBC RBC Hgb Hct MCV MCH MCHC RDW Plt Count MPV Neut % (Auto) Lymph % (Auto) [place] % (Auto) Eos % (Auto) Baso % (Auto) Neut # (Auto) Lymph # (Auto) [place] # (Auto) Eos # (Auto) Baso # (Auto) Neutrophils % (Manual) Band Neutrophils % Lymphocytes % (Manual) Monocytes % (Manual) Metamyelocytes % Platelet Estimate Hypochromasia (manual) Poikilocytosis (manual Anisocytosis (manual) PT 17.4 H INR 1.6 APTT 42 H Fibrinogen 57 L Puncture Site pCO2 pO2 HCO3 ABG pH ABG Total CO2 ABG O2 Saturation ABG Base Excess Gabriel Test ABG Potassium A-a O2 Difference Respiratory Index Glucose Lactate Vent Mode Mechanical Rate FiO2 Tidal Volume PEEP Sodium 138 Potassium 4.5 Chloride 109 H Carbon Dioxide 18 L Anion Gap 16 BUN 8 Creatinine 0.7 Est GFR ( Amer) > 60 Est GFR (Non-Af Amer) > 60 POC Glucose (mg/dL) Random Glucose 115 H Lactic Acid Calcium 8.3 L Phosphorus Magnesium Total Bilirubin AST ALT Alkaline Phosphatase Troponin I 0.0550 NT-Pro-B Natriuret Pep 53.6 Total Protein Albumin Globulin Albumin/Globulin Ratio Arterial Blood Potassium Urine Color Urine Clarity Urine pH Ur Specific [place] Urine Protein Urine Glucose (UA) Urine Ketones Urine Blood Urine Nitrate Urine Bilirubin Urine Urobilinogen Ur Leukocyte Esterase Urine WBC (Auto) Urine RBC (Auto) Ur Squamous Epith Cells Urine Bacteria RPR Hep Bs Antigen Rubella IgG Antibody Blood Type B POSITIVE Antibody Screen Negative 12/23/17 12/23/17 12/23/17 16:04 16:35 17:25 WBC 14.1 H D RBC 3.15 L Hgb 9.3 L D Hct 27.5 L MCV 87.4 D MCH 29.5 MCHC 33.7 RDW 15.1 H Plt Count 102 L D MPV 7.3 Neut % (Auto) 82.8 H Lymph % (Auto) 9.7 L [place] % (Auto) 7.2 Eos % (Auto) 0.0 Baso % (Auto) 0.3 Neut # (Auto) 11.7 H Lymph # (Auto) 1.4 [place] # (Auto) 1.0 H Eos # (Auto) 0.0 Baso # (Auto) 0.0 Neutrophils % (Manual) 71 Band Neutrophils % 15 H* Lymphocytes % (Manual) 9 L Monocytes % (Manual) 5 Metamyelocytes % Platelet Estimate Slightly decreased L Hypochromasia (manual) Poikilocytosis (manual Anisocytosis (manual) PT INR APTT Fibrinogen Puncture Site Fem line pCO2 30 L pO2 501 H HCO3 17.4 L ABG pH 7.31 L ABG Total CO2 16.0 L ABG O2 Saturation 99.9 H ABG Base Excess -9.8 L Gabriel Test Na ABG Potassium 5.7 H A-a O2 Difference 175.0 Respiratory Index 0.3 Glucose 131 H Lactate 2.8 H Vent Mode Prvc Mechanical Rate 16 FiO2 100.0 Tidal Volume 400 PEEP 5 Sodium 133.0 Potassium Chloride 114.0 H Carbon Dioxide Anion Gap BUN Creatinine Est GFR ( Amer) Est GFR (Non-Af Amer) POC Glucose (mg/dL) 121 H Random Glucose Lactic Acid Calcium Phosphorus Magnesium Total Bilirubin AST ALT Alkaline Phosphatase Troponin I NT-Pro-B Natriuret Pep Total Protein Albumin Globulin Albumin/Globulin Ratio Arterial Blood Potassium 5.7 H Urine Color Urine Clarity Urine pH Ur Specific [place] Urine Protein Urine Glucose (UA) Urine Ketones Urine Blood Urine Nitrate Urine Bilirubin Urine Urobilinogen Ur Leukocyte Esterase Urine WBC (Auto) Urine RBC (Auto) Ur Squamous Epith Cells Urine Bacteria RPR Hep Bs Antigen Rubella IgG Antibody Blood Type Antibody Screen 12/23/17 12/23/17 12/23/17 19:53 20:20 20:20 WBC 13.0 H RBC 3.02 L Hgb 8.9 L Hct 26.0 L MCV 86.1 MCH 29.3 MCHC 34.1 RDW 14.9 H Plt Count 84 L MPV 7.6 Neut % (Auto) 86.7 H Lymph % (Auto) 7.5 L [place] % (Auto) 5.7 Eos % (Auto) 0.0 Baso % (Auto) 0.1 Neut # (Auto) 11.2 H Lymph # (Auto) 1.0 [place] # (Auto) 0.7 Eos # (Auto) 0.0 Baso # (Auto) 0.0 Neutrophils % (Manual) 69 Band Neutrophils % 15 H* Lymphocytes % (Manual) 10 L Monocytes % (Manual) 4 Metamyelocytes % 2 H Platelet Estimate Decreased L Hypochromasia (manual) Poikilocytosis (manual Anisocytosis (manual) PT 13.2 H INR 1.2 APTT 32 D Fibrinogen Puncture Site pCO2 pO2 HCO3 ABG pH ABG Total CO2 ABG O2 Saturation ABG Base Excess Gabriel Test ABG Potassium A-a O2 Difference Respiratory Index Glucose Lactate Vent Mode Mechanical Rate FiO2 Tidal Volume PEEP Sodium Potassium Chloride Carbon Dioxide Anion Gap BUN Creatinine Est GFR ( Amer) Est GFR (Non-Af Amer) POC Glucose (mg/dL) 121 H Random Glucose Lactic Acid Calcium Phosphorus Magnesium Total Bilirubin AST ALT Alkaline Phosphatase Troponin I NT-Pro-B Natriuret Pep Total Protein Albumin Globulin Albumin/Globulin Ratio Arterial Blood Potassium Urine Color Urine Clarity Urine pH Ur Specific [place] Urine Protein Urine Glucose (UA) Urine Ketones Urine Blood Urine Nitrate Urine Bilirubin Urine Urobilinogen Ur Leukocyte Esterase Urine WBC (Auto) Urine RBC (Auto) Ur Squamous Epith Cells Urine Bacteria RPR Hep Bs Antigen Rubella IgG Antibody Blood Type Antibody Screen 12/23/17 12/23/17 12/23/17 20:20 20:20 21:34 WBC RBC Hgb Hct MCV MCH MCHC RDW Plt Count MPV Neut % (Auto) Lymph % (Auto) [place] % (Auto) Eos % (Auto) Baso % (Auto) Neut # (Auto) Lymph # (Auto) [place] # (Auto) Eos # (Auto) Baso # (Auto) Neutrophils % (Manual) Band Neutrophils % Lymphocytes % (Manual) Monocytes % (Manual) Metamyelocytes % Platelet Estimate Hypochromasia (manual) Poikilocytosis (manual Anisocytosis (manual) PT INR APTT Fibrinogen Puncture Site Fem line pCO2 31 L pO2 273 H HCO3 18.1 L ABG pH 7.32 L ABG Total CO2 17.0 L ABG O2 Saturation 99.3 H ABG Base Excess -8.9 L Gabriel Test Na ABG Potassium 5.8 H A-a O2 Difference 116.0 Respiratory Index 0.4 Glucose 98 Lactate 3.0 H Vent Mode Prvc Mechanical Rate 22 FiO2 60.0 Tidal Volume 400 PEEP 5 Sodium 136 135.0 Potassium 6.2 H* D Chloride 111 H 113.0 H Carbon Dioxide 17 L Anion Gap 14 BUN 15 Creatinine 1.2 Est GFR ( Amer) > 60 Est GFR (Non-Af Amer) 51 POC Glucose (mg/dL) Random Glucose 111 H Lactic Acid Calcium 9.3 Phosphorus Magnesium Total Bilirubin 3.3 H AST 51 H ALT 28 Alkaline Phosphatase 46 Troponin I NT-Pro-B Natriuret Pep Total Protein 4.0 L Albumin 1.9 L Globulin 2.1 L Albumin/Globulin Ratio 0.9 L Arterial Blood Potassium 5.8 H Urine Color Sabrina Urine Clarity Hazy Urine pH 6.0 Ur Specific [place] 1.017 Urine Protein 2+ H Urine Glucose (UA) 1+ Urine Ketones Negative Urine Blood 2+ H Urine Nitrate Negative Urine Bilirubin Negative Urine Urobilinogen Normal Ur Leukocyte Esterase Neg Urine WBC (Auto) 2 Urine RBC (Auto) 3801 H Ur Squamous Epith Cells Urine Bacteria RPR Hep Bs Antigen Rubella IgG Antibody Blood Type Antibody Screen 12/23/17 12/23/17 12/23/17 23:22 23:22 23:22 WBC 12.0 H RBC 2.82 L Hgb 8.3 L Hct 24.3 L MCV 86.2 MCH 29.5 MCHC 34.2 RDW 15.2 H Plt Count 78 L MPV 7.8 Neut % (Auto) 85.7 H Lymph % (Auto) 7.8 L [place] % (Auto) 6.2 Eos % (Auto) 0.0 Baso % (Auto) 0.3 Neut # (Auto) 10.3 H Lymph # (Auto) 0.9 L [place] # (Auto) 0.7 Eos # (Auto) 0.0 Baso # (Auto) 0.0 Neutrophils % (Manual) Band Neutrophils % Lymphocytes % (Manual) Monocytes % (Manual) Metamyelocytes % Platelet Estimate Hypochromasia (manual) Poikilocytosis (manual Anisocytosis (manual) PT 12.5 H INR 1.1 APTT 31 Fibrinogen Puncture Site pCO2 pO2 HCO3 ABG pH ABG Total CO2 ABG O2 Saturation ABG Base Excess Gabriel Test ABG Potassium A-a O2 Difference Respiratory Index Glucose Lactate Vent Mode Mechanical Rate FiO2 Tidal Volume PEEP Sodium 134 Potassium 6.2 H* Chloride 111 H Carbon Dioxide 17 L Anion Gap 11 BUN 16 Creatinine 1.3 H Est GFR ( Amer) 56 Est GFR (Non-Af Amer) 46 POC Glucose (mg/dL) Random Glucose 89 Lactic Acid Calcium 8.4 L Phosphorus Magnesium Total Bilirubin AST ALT Alkaline Phosphatase Troponin I NT-Pro-B Natriuret Pep Total Protein Albumin Globulin Albumin/Globulin Ratio Arterial Blood Potassium Urine Color Urine Clarity Urine pH Ur Specific [place] Urine Protein Urine Glucose (UA) Urine Ketones Urine Blood Urine Nitrate Urine Bilirubin Urine Urobilinogen Ur Leukocyte Esterase Urine WBC (Auto) Urine RBC (Auto) Ur Squamous Epith Cells Urine Bacteria RPR Hep Bs Antigen Rubella IgG Antibody Blood Type Antibody Screen 12/23/17 12/24/17 12/24/17 23:43 04:14 04:33 WBC 11.2 H RBC 2.92 L Hgb 8.5 L Hct 24.7 L MCV 84.8 MCH 29.0 MCHC 34.2 RDW 15.7 H Plt Count 67 L MPV 8.0 Neut % (Auto) 87.6 H Lymph % (Auto) 7.5 L [place] % (Auto) 4.7 Eos % (Auto) 0.0 Baso % (Auto) 0.2 Neut # (Auto) 9.8 H Lymph # (Auto) 0.8 L [place] # (Auto) 0.5 Eos # (Auto) 0.0 Baso # (Auto) 0.0 Neutrophils % (Manual) 84 H Band Neutrophils % 7 H Lymphocytes % (Manual) 5 L Monocytes % (Manual) 4 Metamyelocytes % Platelet Estimate Decreased L Hypochromasia (manual) Slight Poikilocytosis (manual Slight Anisocytosis (manual) Slight PT INR APTT Fibrinogen Puncture Site pCO2 pO2 HCO3 ABG pH ABG Total CO2 ABG O2 Saturation ABG Base Excess Gabriel Test ABG Potassium A-a O2 Difference Respiratory Index Glucose Lactate Vent Mode Mechanical Rate FiO2 Tidal Volume PEEP Sodium Potassium Chloride Carbon Dioxide Anion Gap BUN Creatinine Est GFR ( Amer) Est GFR (Non-Af Amer) POC Glucose (mg/dL) 97 111 H Random Glucose Lactic Acid Calcium Phosphorus Magnesium Total Bilirubin AST ALT Alkaline Phosphatase Troponin I NT-Pro-B Natriuret Pep Total Protein Albumin Globulin Albumin/Globulin Ratio Arterial Blood Potassium Urine Color Urine Clarity Urine pH Ur Specific [place] Urine Protein Urine Glucose (UA) Urine Ketones Urine Blood Urine Nitrate Urine Bilirubin Urine Urobilinogen Ur Leukocyte Esterase Urine WBC (Auto) Urine RBC (Auto) Ur Squamous Epith Cells Urine Bacteria RPR Hep Bs Antigen Rubella IgG Antibody Blood Type Antibody Screen 12/24/17 12/24/17 12/24/17 04:33 04:33 04:33 WBC RBC Hgb Hct MCV MCH MCHC RDW Plt Count MPV Neut % (Auto) Lymph % (Auto) [place] % (Auto) Eos % (Auto) Baso % (Auto) Neut # (Auto) Lymph # (Auto) [place] # (Auto) Eos # (Auto) Baso # (Auto) Neutrophils % (Manual) Band Neutrophils % Lymphocytes % (Manual) Monocytes % (Manual) Metamyelocytes % Platelet Estimate Hypochromasia (manual) Poikilocytosis (manual Anisocytosis (manual) PT INR APTT Fibrinogen 356 D Puncture Site pCO2 pO2 HCO3 ABG pH ABG Total CO2 ABG O2 Saturation ABG Base Excess Gabriel Test ABG Potassium A-a O2 Difference Respiratory Index Glucose Lactate Vent Mode Mechanical Rate FiO2 Tidal Volume PEEP Sodium 135 Potassium 5.4 H Chloride 111 H Carbon Dioxide 18 L Anion Gap 11 BUN 19 H Creatinine 1.8 H Est GFR ( Amer) 38 Est GFR (Non-Af Amer) 32 POC Glucose (mg/dL) Random Glucose 103 Lactic Acid 1.3 Calcium 8.2 L Phosphorus 5.3 H Magnesium 1.1 L Total Bilirubin 1.9 H AST 61 H ALT 33 Alkaline Phosphatase 45 Troponin I NT-Pro-B Natriuret Pep Total Protein 3.7 L Albumin 1.7 L Globulin 2.0 L Albumin/Globulin Ratio 0.9 L Arterial Blood Potassium Urine Color Urine Clarity Urine pH Ur Specific [place] Urine Protein Urine Glucose (UA) Urine Ketones Urine Blood Urine Nitrate Urine Bilirubin Urine Urobilinogen Ur Leukocyte Esterase Urine WBC (Auto) Urine RBC (Auto) Ur Squamous Epith Cells Urine Bacteria RPR Hep Bs Antigen Rubella IgG Antibody Blood Type Antibody Screen 12/24/17 12/24/17 05:06 08:26 WBC RBC Hgb Hct MCV MCH MCHC RDW Plt Count MPV Neut % (Auto) Lymph % (Auto) [place] % (Auto) Eos % (Auto) Baso % (Auto) Neut # (Auto) Lymph # (Auto) [place] # (Auto) Eos # (Auto) Baso # (Auto) Neutrophils % (Manual) Band Neutrophils % Lymphocytes % (Manual) Monocytes % (Manual) Metamyelocytes % Platelet Estimate Hypochromasia (manual) Poikilocytosis (manual Anisocytosis (manual) PT INR APTT Fibrinogen Puncture Site Ronna pCO2 32 L pO2 231 H HCO3 19.7 L ABG pH 7.35 ABG Total CO2 18.7 L ABG O2 Saturation 99.0 H ABG Base Excess -6.8 L Gabriel Test Na ABG Potassium 5.1 A-a O2 Difference 14.0 Respiratory Index 0.1 Glucose 98 Lactate 1.4 Vent Mode Prvc Mechanical Rate 22 FiO2 40.0 Tidal Volume 400 PEEP 5 Sodium 134.0 Potassium Chloride 111.0 H Carbon Dioxide Anion Gap BUN Creatinine Est GFR ( Amer) Est GFR (Non-Af Amer) POC Glucose (mg/dL) 109 Random Glucose Lactic Acid Calcium Phosphorus Magnesium Total Bilirubin AST ALT Alkaline Phosphatase Troponin I NT-Pro-B Natriuret Pep Total Protein Albumin Globulin Albumin/Globulin Ratio Arterial Blood Potassium 5.1 Urine Color Urine Clarity Urine pH Ur Specific [place] Urine Protein Urine Glucose (UA) Urine Ketones Urine Blood Urine Nitrate Urine Bilirubin Urine Urobilinogen Ur Leukocyte Esterase Urine WBC (Auto) Urine RBC (Auto) Ur Squamous Epith Cells Urine Bacteria RPR Hep Bs Antigen Rubella IgG Antibody Blood Type Antibody Screen EKG/Cardiology Studies: Cardiology / EKG Studies 12/23/17 17:21 EKG [ELECTROCARDIOGRAM] Stat Comment: Mode Of Transportation: Reason For Exam: svt 12/23/17 21:02 ELECTROCARDIOGRAM Routine Comment: Mode Of Transportation: PORTABLE Reason For Exam: elevated K+ Fingerstick Blood Sugar Results: 96 Critical Care Progress Note - Nutrition Nutrition: Nutrition Category Date Time Status NPO Diet [DIET] Diets 12/22/17 Dinner Active Assessment/Plan - Assessment and Plan (Free Text) Assessment: This is a 37 year old female with PMHx of Asthma, who is now s/p post term induced vaginal delivery on 12/23/17 @ 10am who had hemorrhage s/p DC s /p hysterectomy admitted to the ICU intubated on PRVC 16/ 100/ 400/ 5 with Fentanyl, Versed. She received 5 units PRBCs and 1 FFP prior to arrival to ICU. Fibrinogen 57. Patient found to be in DIC. Massive transfusion protocol initiated 4 units PRBCs, 3 FFPs, 1 PLTs, and total 25 cryoprecipitate. Left IJ TLC was inserted, started on Levophed. Initiated empiric antibiotics. Extubated 12/24/17 8:30. Plan: Neuro: - Intubated on PRVC 16/ 100/ 400/ 5 - Sedated with Fentanyl, Versed - Extubated 12/24 - 8:30 Cardio: A: Hypovolemic shock -- resolved - LUKAS - negative - F/U ECHO Pulm: - Intubated on PRVC 16/ 100/ 400/ 5 - Sedated with Fentanyl, Versed - Extubated 12/24 - 8:30 ID: A: SIRS - Leukocytosis, left shift, bandemia, lactate 2.8 --> 3.0 --> 1.4 - Zosyn (renal dose), Doxy, and discontinued Vanco 2/2 renal function [employer]: A: , Hemorrhage S/P D&C, S/P Hysterectomy in DIC - , unable to achieve hemostasis with Cytotec, Pitocin, Methergine - S/P D&C received Thrombin - continue to hemorrhage - S/P Hysterectomy in DIC, fibrinogen 57 - Massive transfusion protocol initiated 4 units PRBCs, 3 FFPs, 1 PLTs, and total 25 cryoprecipitate Renal: A: ARF - 1.2 --> 1.3 --1.8 - DC vanco - continue IVF hydration Heme/Onc: A: Acute Anemia 2/2 Hemorrhage - Baseline H/H: 13.4/ 39.6 --> 9.3 --> 8.9 --> 8.3 --> 8.5 - Started on Levophed -- OFF pressors 12/24/17 - Ordered hemophilia workup - Continue to monitor Prophylaxis - SCDs, VTE c/i due to active hemorrhage - Lines: Left IJ TLC was inserted, a line was removed DW Dr. Juan Jose Emmanuel, Esther Yuan DO, PGY-1 <Trevon Emmanuel - Last Filed: 12/24/17 13:24> CCU Subjective - Physician Review Critical Care Time Spent (in minutes): 35 CCU Objective - Vital Signs / Intake & Output Vital Signs (Last 4 hours): Vital Signs Pulse Resp BP Pulse Ox 12/24/17 11:02 97 H 19 115/57 L 100 12/24/17 11:00 103 H 23 100 12/24/17 10:02 86 12 109/57 L 100 12/24/17 10:00 94 H 19 100 12/24/17 09:38 91 H 17 105/54 L 100 Intake and Output (Last 8hrs): Intake & Output 12/23/17 12/24/17 12/24/17 22:59 06:59 14:59 Intake Total 2625.5 1733.1 328 Output Total 435 225 30 Balance 2190.5 1508.1 298 Weight 156 lb 3 oz Intake: IV 108 85 Intake, IV Amount 1422.5 1323.1 328 Left Hand 450 425 Left Internal Jugular 26.3 26.3 Left Medial Port 42 112 28 Left Proximal Port 300 700 300 Right External Jugular 600 50 left medial ivpb 4.2 9.8 0 Blood Product 1045 325 Red Blood Cells Cpd As1 325 Lr Unit [id number] Red Blood Cells Cpd As1 325 Lr Unit [id number] Other 50 Output: Urine 435 225 30 Urethral (Lee) 435 225 30 Emesis 0 0 Other: # Bowel Movements 0 0 0 - Medications Active Medications: Active Medications Generic Name Dose Route Start Last Admin Trade Name Freq PRN Reason Stop Dose Admin Acetaminophen 650 mg 12/22/17 21:38 Tylenol 650 Mg Supp DE Q6 PRN Fever >100.4 F Hydromorphone HCl 0.5 mg 12/24/17 10:30 12/24/17 10:55 Dilaudid IVP 0.5 mg Q6H PRN Administration Pain, severe (8-10) Doxycycline Hyclate 100 mg/ 100 mls @ 100 mls/hr 12/23/17 18:00 12/24/17 05: 19 Sodium Chloride IVPB 100 mls/hr Q12H KELLEY Administration Protocol Sodium Chloride 1,000 mls @ 75 mls/hr 12/24/17 08:45 12/24/17 08:35 Sodium Chloride 0.9% IV 75 mls/hr .[id number] KELLEY Administration Piperacillin Sod/Tazobactam Sod 2.25 gm in 50 mls @ 100 mls/hr 12/24/17 09:00 12/24/17 10:00 Zosyn 2.25 Gm Iv Premix IVPB 100 mls/hr Q6H KELLEY Administration Protocol - Patient Studies Lab Studies: Lab Studies 12/24/17 12/24/17 12/24/17 Range/Units 11:23 10:53 08:26 WBC (4.8-10.8) K/uL RBC (3.80-5.20) Mil/uL Hgb (11.0-16.0) g/dL Hct (34.0-47.0) % MCV (81.0-99.0) fL MCH (27.0-31.0) pg MCHC (33.0-37.0) g/dL RDW (11.5-14.5) % Plt Count (130-400) K/uL MPV (7.2-11.7) fL Neut % (Auto) (50.0-75.0) % Lymph % (Auto) (20.0-40.0) % [place] % (Auto) (0.0-10.0) % Eos % (Auto) (0.0-4.0) % Baso % (Auto) (0.0-2.0) % Neut # (Auto) (1.8-7.0) K/uL Lymph # (Auto) (1.0-4.3) K/uL [place] # (Auto) (0.0-0.8) K/uL Eos # (Auto) (0.0-0.7) K/uL Baso # (Auto) (0.0-0.2) K/uL Neutrophils % (Manual) (50-75) % Band Neutrophils % (0-2) % Lymphocytes % (Manual) (20-40) % Monocytes % (Manual) (0-10) % Metamyelocytes % (0-0) % Platelet Estimate (NORMAL) Hypochromasia (manual) Poikilocytosis (manual Anisocytosis (manual) PT (9.7-12.2) SECONDS INR APTT (21-34) SECONDS Fibrinogen (200-400) mg/dL Puncture Site pCO2 (35-45) mm/Hg pO2 (80-100) mm/Hg HCO3 (21-28) mmol/L ABG pH (7.35-7.45) ABG Total CO2 (22-28) mmol/L ABG O2 Saturation (95-98) % ABG Base Excess (-2.0-3.0) mmol/L Gabriel Test ABG Potassium (3.6-5.2) mmol/L A-a O2 Difference mm/Hg Respiratory Index Glucose (65-105) mg/dl Lactate (0.7-2.1) mmol/L Vent Mode Mechanical Rate FiO2 % Tidal Volume PEEP Sodium (132-148) mmol/L Potassium (3.6-5.2) mmol/L Chloride (98-107) mmol/L Carbon Dioxide (22-30) mmol/L Anion Gap (10-20) BUN (7-17) mg/dL Creatinine (0.7-1.2) mg/dL Est GFR ( Amer) Est GFR (Non-Af Amer) POC Glucose (mg/dL) 107 109 (65-110) mg/dL Random Glucose (65-105) mg/dL Lactic Acid (0.7-2.1) mmol/L Calcium (8.6-10.4) mg/dl Phosphorus (2.5-4.5) mg/dL Magnesium (1.6-2.3) mg/dL Total Bilirubin (0.2-1.3) mg/dL AST (14-36) U/L ALT (9-52) U/L Alkaline Phosphatase (38-126) U/L Troponin I (0.00-0.120) ng/mL NT-Pro-B Natriuret Pep (0-450) pg/mL Total Protein (6.3-8.3) g/dL Albumin (3.5-5.0) g/dL Globulin (2.2-3.9) gm/dL Albumin/Globulin Ratio (1.0-2.1) Arterial Blood Potassium (3.6-5.2) mmol/L Urine Color (YELLOW) Urine Clarity (Clear) Urine pH (5.0-8.0) Ur Specific [place] (1.003-1.030) Urine Protein (NEGATIVE) mg/dL Urine Glucose (UA) (Normal) mg/dL Urine Ketones (NEGATIVE) mg/dL Urine Blood (NEGATIVE) Urine Nitrate (NEGATIVE) Urine Bilirubin (NEGATIVE) Urine Urobilinogen (0.2-1.0) mg/dL Ur Leukocyte Esterase (Negative) Mahesh/uL Urine WBC (Auto) (0-5) /hpf Urine RBC (Auto) (0-3) /hpf Random Vancomycin 11.9 ug/mL RPR (NONREACTIVE) Rubella IgG Antibody (POSITIVE) Blood Type Antibody Screen 12/24/17 12/24/17 12/24/17 Range/Units 05:06 04:33 04:33 WBC (4.8-10.8) K/uL RBC (3.80-5.20) Mil/uL Hgb (11.0-16.0) g/dL Hct (34.0-47.0) % MCV (81.0-99.0) fL MCH (27.0-31.0) pg MCHC (33.0-37.0) g/dL RDW (11.5-14.5) % Plt Count (130-400) K/uL MPV (7.2-11.7) fL Neut % (Auto) (50.0-75.0) % Lymph % (Auto) (20.0-40.0) % [place] % (Auto) (0.0-10.0) % Eos % (Auto) (0.0-4.0) % Baso % (Auto) (0.0-2.0) % Neut # (Auto) (1.8-7.0) K/uL Lymph # (Auto) (1.0-4.3) K/uL [place] # (Auto) (0.0-0.8) K/uL Eos # (Auto) (0.0-0.7) K/uL Baso # (Auto) (0.0-0.2) K/uL Neutrophils % (Manual) (50-75) % Band Neutrophils % (0-2) % Lymphocytes % (Manual) (20-40) % Monocytes % (Manual) (0-10) % Metamyelocytes % (0-0) % Platelet Estimate (NORMAL) Hypochromasia (manual) Poikilocytosis (manual Anisocytosis (manual) PT (9.7-12.2) SECONDS INR APTT (21-34) SECONDS Fibrinogen 356 D (200-400) mg/dL Puncture Site [place] pCO2 32 L (35-45) mm/Hg pO2 231 H (80-100) mm/Hg HCO3 19.7 L (21-28) mmol/L ABG pH 7.35 (7.35-7.45) ABG Total CO2 18.7 L (22-28) mmol/L ABG O2 Saturation 99.0 H (95-98) % ABG Base Excess -6.8 L (-2.0-3.0) mmol/L Gabriel Test Na ABG Potassium 5.1 (3.6-5.2) mmol/L A-a O2 Difference 14.0 mm/Hg Respiratory Index 0.1 Glucose 98 (65-105) mg/dl Lactate 1.4 (0.7-2.1) mmol/L Vent Mode Prvc Mechanical Rate 22 FiO2 40.0 % Tidal Volume 400 PEEP 5 Sodium 134.0 (132-148) mmol/L Potassium (3.6-5.2) mmol/L Chloride 111.0 H (98-107) mmol/L Carbon Dioxide (22-30) mmol/L Anion Gap (10-20) BUN (7-17) mg/dL Creatinine (0.7-1.2) mg/dL Est GFR ( Amer) Est GFR (Non-Af Amer) POC Glucose (mg/dL) (65-110) mg/dL Random Glucose (65-105) mg/dL Lactic Acid 1.3 (0.7-2.1) mmol/L Calcium (8.6-10.4) mg/dl Phosphorus (2.5-4.5) mg/dL Magnesium (1.6-2.3) mg/dL Total Bilirubin (0.2-1.3) mg/dL AST (14-36) U/L ALT (9-52) U/L Alkaline Phosphatase (38-126) U/L Troponin I (0.00-0.120) ng/mL NT-Pro-B Natriuret Pep (0-450) pg/mL Total Protein (6.3-8.3) g/dL Albumin (3.5-5.0) g/dL Globulin (2.2-3.9) gm/dL Albumin/Globulin Ratio (1.0-2.1) Arterial Blood Potassium 5.1 (3.6-5.2) mmol/L Urine Color (YELLOW) Urine Clarity (Clear) Urine pH (5.0-8.0) Ur Specific [place] (1.003-1.030) Urine Protein (NEGATIVE) mg/dL Urine Glucose (UA) (Normal) mg/dL Urine Ketones (NEGATIVE) mg/dL Urine Blood (NEGATIVE) Urine Nitrate (NEGATIVE) Urine Bilirubin (NEGATIVE) Urine Urobilinogen (0.2-1.0) mg/dL Ur Leukocyte Esterase (Negative) Mahesh/uL Urine WBC (Auto) (0-5) /hpf Urine RBC (Auto) (0-3) /hpf Random Vancomycin ug/mL RPR (NONREACTIVE) Rubella IgG Antibody (POSITIVE) Blood Type Antibody Screen 12/24/17 12/24/17 12/24/17 Range/Units 04:33 04:33 04:14 WBC 11.2 H (4.8-10.8) K/uL RBC 2.92 L (3.80-5.20) Mil/uL Hgb 8.5 L (11.0-16.0) g/dL Hct 24.7 L (34.0-47.0) % MCV 84.8 (81.0-99.0) fL MCH 29.0 (27.0-31.0) pg MCHC 34.2 (33.0-37.0) g/dL RDW 15.7 H (11.5-14.5) % Plt Count 67 L (130-400) K/uL MPV 8.0 (7.2-11.7) fL Neut % (Auto) 87.6 H (50.0-75.0) % Lymph % (Auto) 7.5 L (20.0-40.0) % [place] % (Auto) 4.7 (0.0-10.0) % Eos % (Auto) 0.0 (0.0-4.0) % Baso % (Auto) 0.2 (0.0-2.0) % Neut # (Auto) 9.8 H (1.8-7.0) K/uL Lymph # (Auto) 0.8 L (1.0-4.3) K/uL [place] # (Auto) 0.5 (0.0-0.8) K/uL Eos # (Auto) 0.0 (0.0-0.7) K/uL Baso # (Auto) 0.0 (0.0-0.2) K/uL Neutrophils % (Manual) 84 H (50-75) % Band Neutrophils % 7 H (0-2) % Lymphocytes % (Manual) 5 L (20-40) % Monocytes % (Manual) 4 (0-10) % Metamyelocytes % (0-0) % Platelet Estimate Decreased L (NORMAL) Hypochromasia (manual) Slight Poikilocytosis (manual Slight Anisocytosis (manual) Slight PT (9.7-12.2) SECONDS INR APTT (21-34) SECONDS Fibrinogen (200-400) mg/dL Puncture Site pCO2 (35-45) mm/Hg pO2 (80-100) mm/Hg HCO3 (21-28) mmol/L ABG pH (7.35-7.45) ABG Total CO2 (22-28) mmol/L ABG O2 Saturation (95-98) % ABG Base Excess (-2.0-3.0) mmol/L Gabriel Test ABG Potassium (3.6-5.2) mmol/L A-a O2 Difference mm/Hg Respiratory Index Glucose (65-105) mg/dl Lactate (0.7-2.1) mmol/L Vent Mode Mechanical Rate FiO2 % Tidal Volume PEEP Sodium 135 (132-148) mmol/L Potassium 5.4 H (3.6-5.2) mmol/L Chloride 111 H (98-107) mmol/L Carbon Dioxide 18 L (22-30) mmol/L Anion Gap 11 (10-20) BUN 19 H (7-17) mg/dL Creatinine 1.8 H (0.7-1.2) mg/dL Est GFR ( Amer) 38 Est GFR (Non-Af Amer) 32 POC Glucose (mg/dL) 111 H (65-110) mg/dL Random Glucose 103 (65-105) mg/dL Lactic Acid (0.7-2.1) mmol/L Calcium 8.2 L (8.6-10.4) mg/dl Phosphorus 5.3 H (2.5-4.5) mg/dL Magnesium 1.1 L (1.6-2.3) mg/dL Total Bilirubin 1.9 H (0.2-1.3) mg/dL AST 61 H (14-36) U/L ALT 33 (9-52) U/L Alkaline Phosphatase 45 (38-126) U/L Troponin I (0.00-0.120) ng/mL NT-Pro-B Natriuret Pep (0-450) pg/mL Total Protein 3.7 L (6.3-8.3) g/dL Albumin 1.7 L (3.5-5.0) g/dL Globulin 2.0 L (2.2-3.9) gm/dL Albumin/Globulin Ratio 0.9 L (1.0-2.1) Arterial Blood Potassium (3.6-5.2) mmol/L Urine Color (YELLOW) Urine Clarity (Clear) Urine pH (5.0-8.0) Ur Specific [place] (1.003-1.030) Urine Protein (NEGATIVE) mg/dL Urine Glucose (UA) (Normal) mg/dL Urine Ketones (NEGATIVE) mg/dL Urine Blood (NEGATIVE) Urine Nitrate (NEGATIVE) Urine Bilirubin (NEGATIVE) Urine Urobilinogen (0.2-1.0) mg/dL Ur Leukocyte Esterase (Negative) Mahesh/uL Urine WBC (Auto) (0-5) /hpf Urine RBC (Auto) (0-3) /hpf Random Vancomycin ug/mL RPR (NONREACTIVE) Rubella IgG Antibody (POSITIVE) Blood Type Antibody Screen 12/23/17 12/23/17 12/23/17 Range/Units 23:43 23:22 23:22 WBC (4.8-10.8) K/uL RBC (3.80-5.20) Mil/uL Hgb (11.0-16.0) g/dL Hct (34.0-47.0) % MCV (81.0-99.0) fL MCH (27.0-31.0) pg MCHC (33.0-37.0) g/dL RDW (11.5-14.5) % Plt Count (130-400) K/uL MPV (7.2-11.7) fL Neut % (Auto) (50.0-75.0) % Lymph % (Auto) (20.0-40.0) % [place] % (Auto) (0.0-10.0) % Eos % (Auto) (0.0-4.0) % Baso % (Auto) (0.0-2.0) % Neut # (Auto) (1.8-7.0) K/uL Lymph # (Auto) (1.0-4.3) K/uL [place] # (Auto) (0.0-0.8) K/uL Eos # (Auto) (0.0-0.7) K/uL Baso # (Auto) (0.0-0.2) K/uL Neutrophils % (Manual) (50-75) % Band Neutrophils % (0-2) % Lymphocytes % (Manual) (20-40) % Monocytes % (Manual) (0-10) % Metamyelocytes % (0-0) % Platelet Estimate (NORMAL) Hypochromasia (manual) Poikilocytosis (manual Anisocytosis (manual) PT 12.5 H (9.7-12.2) SECONDS INR 1.1 APTT 31 (21-34) SECONDS Fibrinogen (200-400) mg/dL Puncture Site pCO2 (35-45) mm/Hg pO2 (80-100) mm/Hg HCO3 (21-28) mmol/L ABG pH (7.35-7.45) ABG Total CO2 (22-28) mmol/L ABG O2 Saturation (95-98) % ABG Base Excess (-2.0-3.0) mmol/L Gabriel Test ABG Potassium (3.6-5.2) mmol/L A-a O2 Difference mm/Hg Respiratory Index Glucose (65-105) mg/dl Lactate (0.7-2.1) mmol/L Vent Mode Mechanical Rate FiO2 % Tidal Volume PEEP Sodium 134 (132-148) mmol/L Potassium 6.2 H* (3.6-5.2) mmol/L Chloride 111 H (98-107) mmol/L Carbon Dioxide 17 L (22-30) mmol/L Anion Gap 11 (10-20) BUN 16 (7-17) mg/dL Creatinine 1.3 H (0.7-1.2) mg/dL Est GFR ( Amer) 56 Est GFR (Non-Af Amer) 46 POC Glucose (mg/dL) 97 (65-110) mg/dL Random Glucose 89 (65-105) mg/dL Lactic Acid (0.7-2.1) mmol/L Calcium 8.4 L (8.6-10.4) mg/dl Phosphorus (2.5-4.5) mg/dL Magnesium (1.6-2.3) mg/dL Total Bilirubin (0.2-1.3) mg/dL AST (14-36) U/L ALT (9-52) U/L Alkaline Phosphatase (38-126) U/L Troponin I (0.00-0.120) ng/mL NT-Pro-B Natriuret Pep (0-450) pg/mL Total Protein (6.3-8.3) g/dL Albumin (3.5-5.0) g/dL Globulin (2.2-3.9) gm/dL Albumin/Globulin Ratio (1.0-2.1) Arterial Blood Potassium (3.6-5.2) mmol/L Urine Color (YELLOW) Urine Clarity (Clear) Urine pH (5.0-8.0) Ur Specific [place] (1.003-1.030) Urine Protein (NEGATIVE) mg/dL Urine Glucose (UA) (Normal) mg/dL Urine Ketones (NEGATIVE) mg/dL Urine Blood (NEGATIVE) Urine Nitrate (NEGATIVE) Urine Bilirubin (NEGATIVE) Urine Urobilinogen (0.2-1.0) mg/dL Ur Leukocyte Esterase (Negative) Mahesh/uL Urine WBC (Auto) (0-5) /hpf Urine RBC (Auto) (0-3) /hpf Random Vancomycin ug/mL RPR (NONREACTIVE) Rubella IgG Antibody (POSITIVE) Blood Type Antibody Screen 12/23/17 12/23/17 12/23/17 Range/Units 23:22 21:34 20:20 WBC 12.0 H (4.8-10.8) K/uL RBC 2.82 L (3.80-5.20) Mil/uL Hgb 8.3 L (11.0-16.0) g/dL Hct 24.3 L (34.0-47.0) % MCV 86.2 (81.0-99.0) fL MCH 29.5 (27.0-31.0) pg MCHC 34.2 (33.0-37.0) g/dL RDW 15.2 H (11.5-14.5) % Plt Count 78 L (130-400) K/uL MPV 7.8 (7.2-11.7) fL Neut % (Auto) 85.7 H (50.0-75.0) % Lymph % (Auto) 7.8 L (20.0-40.0) % [place] % (Auto) 6.2 (0.0-10.0) % Eos % (Auto) 0.0 (0.0-4.0) % Baso % (Auto) 0.3 (0.0-2.0) % Neut # (Auto) 10.3 H (1.8-7.0) K/uL Lymph # (Auto) 0.9 L (1.0-4.3) K/uL [place] # (Auto) 0.7 (0.0-0.8) K/uL Eos # (Auto) 0.0 (0.0-0.7) K/uL Baso # (Auto) 0.0 (0.0-0.2) K/uL Neutrophils % (Manual) (50-75) % Band Neutrophils % (0-2) % Lymphocytes % (Manual) (20-40) % Monocytes % (Manual) (0-10) % Metamyelocytes % (0-0) % Platelet Estimate (NORMAL) Hypochromasia (manual) Poikilocytosis (manual Anisocytosis (manual) PT (9.7-12.2) SECONDS INR APTT (21-34) SECONDS Fibrinogen (200-400) mg/dL Puncture Site Fem line pCO2 31 L (35-45) mm/Hg pO2 273 H (80-100) mm/Hg HCO3 18.1 L (21-28) mmol/L ABG pH 7.32 L (7.35-7.45) ABG Total CO2 17.0 L (22-28) mmol/L ABG O2 Saturation 99.3 H (95-98) % ABG Base Excess -8.9 L (-2.0-3.0) mmol/L Gabriel Test Na ABG Potassium 5.8 H (3.6-5.2) mmol/L A-a O2 Difference 116.0 mm/Hg Respiratory Index 0.4 Glucose 98 (65-105) mg/dl Lactate 3.0 H (0.7-2.1) mmol/L Vent Mode Prvc Mechanical Rate 22 FiO2 60.0 % Tidal Volume 400 PEEP 5 Sodium 135.0 136 (132-148) mmol/L Potassium 6.2 H* D (3.6-5.2) mmol/L Chloride 113.0 H 111 H (98-107) mmol/L Carbon Dioxide 17 L (22-30) mmol/L Anion Gap 14 (10-20) BUN 15 (7-17) mg/dL Creatinine 1.2 (0.7-1.2) mg/dL Est GFR ( Amer) > 60 Est GFR (Non-Af Amer) 51 POC Glucose (mg/dL) (65-110) mg/dL Random Glucose 111 H (65-105) mg/dL Lactic Acid (0.7-2.1) mmol/L Calcium 9.3 (8.6-10.4) mg/dl Phosphorus (2.5-4.5) mg/dL Magnesium (1.6-2.3) mg/dL Total Bilirubin 3.3 H (0.2-1.3) mg/dL AST 51 H (14-36) U/L ALT 28 (9-52) U/L Alkaline Phosphatase 46 (38-126) U/L Troponin I (0.00-0.120) ng/mL NT-Pro-B Natriuret Pep (0-450) pg/mL Total Protein 4.0 L (6.3-8.3) g/dL Albumin 1.9 L (3.5-5.0) g/dL Globulin 2.1 L (2.2-3.9) gm/dL Albumin/Globulin Ratio 0.9 L (1.0-2.1) Arterial Blood Potassium 5.8 H (3.6-5.2) mmol/L Urine Color (YELLOW) Urine Clarity (Clear) Urine pH (5.0-8.0) Ur Specific [place] (1.003-1.030) Urine Protein (NEGATIVE) mg/dL Urine Glucose (UA) (Normal) mg/dL Urine Ketones (NEGATIVE) mg/dL Urine Blood (NEGATIVE) Urine Nitrate (NEGATIVE) Urine Bilirubin (NEGATIVE) Urine Urobilinogen (0.2-1.0) mg/dL Ur Leukocyte Esterase (Negative) Mahesh/uL Urine WBC (Auto) (0-5) /hpf Urine RBC (Auto) (0-3) /hpf Random Vancomycin ug/mL RPR (NONREACTIVE) Rubella IgG Antibody (POSITIVE) Blood Type Antibody Screen 12/23/17 12/23/17 12/23/17 Range/Units 20:20 20:20 20:20 WBC 13.0 H (4.8-10.8) K/uL RBC 3.02 L (3.80-5.20) Mil/uL Hgb 8.9 L (11.0-16.0) g/dL Hct 26.0 L (34.0-47.0) % MCV 86.1 (81.0-99.0) fL MCH 29.3 (27.0-31.0) pg MCHC 34.1 (33.0-37.0) g/dL RDW 14.9 H (11.5-14.5) % Plt Count 84 L (130-400) K/uL MPV 7.6 (7.2-11.7) fL Neut % (Auto) 86.7 H (50.0-75.0) % Lymph % (Auto) 7.5 L (20.0-40.0) % [place] % (Auto) 5.7 (0.0-10.0) % Eos % (Auto) 0.0 (0.0-4.0) % Baso % (Auto) 0.1 (0.0-2.0) % Neut # (Auto) 11.2 H (1.8-7.0) K/uL Lymph # (Auto) 1.0 (1.0-4.3) K/uL [place] # (Auto) 0.7 (0.0-0.8) K/uL Eos # (Auto) 0.0 (0.0-0.7) K/uL Baso # (Auto) 0.0 (0.0-0.2) K/uL Neutrophils % (Manual) 69 (50-75) % Band Neutrophils % 15 H* (0-2) % Lymphocytes % (Manual) 10 L (20-40) % Monocytes % (Manual) 4 (0-10) % Metamyelocytes % 2 H (0-0) % Platelet Estimate Decreased L (NORMAL) Hypochromasia (manual) Poikilocytosis (manual Anisocytosis (manual) PT 13.2 H (9.7-12.2) SECONDS INR 1.2 APTT 32 D (21-34) SECONDS Fibrinogen (200-400) mg/dL Puncture Site pCO2 (35-45) mm/Hg pO2 (80-100) mm/Hg HCO3 (21-28) mmol/L ABG pH (7.35-7.45) ABG Total CO2 (22-28) mmol/L ABG O2 Saturation (95-98) % ABG Base Excess (-2.0-3.0) mmol/L Gabriel Test ABG Potassium (3.6-5.2) mmol/L A-a O2 Difference mm/Hg Respiratory Index Glucose (65-105) mg/dl Lactate (0.7-2.1) mmol/L Vent Mode Mechanical Rate FiO2 % Tidal Volume PEEP Sodium (132-148) mmol/L Potassium (3.6-5.2) mmol/L Chloride (98-107) mmol/L Carbon Dioxide (22-30) mmol/L Anion Gap (10-20) BUN (7-17) mg/dL Creatinine (0.7-1.2) mg/dL Est GFR ( Amer) Est GFR (Non-Af Amer) POC Glucose (mg/dL) (65-110) mg/dL Random Glucose (65-105) mg/dL Lactic Acid (0.7-2.1) mmol/L Calcium (8.6-10.4) mg/dl Phosphorus (2.5-4.5) mg/dL Magnesium (1.6-2.3) mg/dL Total Bilirubin (0.2-1.3) mg/dL AST (14-36) U/L ALT (9-52) U/L Alkaline Phosphatase (38-126) U/L Troponin I (0.00-0.120) ng/mL NT-Pro-B Natriuret Pep (0-450) pg/mL Total Protein (6.3-8.3) g/dL Albumin (3.5-5.0) g/dL Globulin (2.2-3.9) gm/dL Albumin/Globulin Ratio (1.0-2.1) Arterial Blood Potassium (3.6-5.2) mmol/L Urine Color [place] (YELLOW) Urine Clarity Hazy (Clear) Urine pH 6.0 (5.0-8.0) Ur Specific [place] 1.017 (1.003-1.030) Urine Protein 2+ H (NEGATIVE) mg/dL Urine Glucose (UA) 1+ (Normal) mg/dL Urine Ketones Negative (NEGATIVE) mg/dL Urine Blood 2+ H (NEGATIVE) Urine Nitrate Negative (NEGATIVE) Urine Bilirubin Negative (NEGATIVE) Urine Urobilinogen Normal (0.2-1.0) mg/dL Ur Leukocyte Esterase Neg (Negative) Mahesh/uL Urine WBC (Auto) 2 (0-5) /hpf Urine RBC (Auto) 3801 H (0-3) /hpf Random Vancomycin ug/mL RPR (NONREACTIVE) Rubella IgG Antibody (POSITIVE) Blood Type Antibody Screen 12/23/17 12/23/17 12/23/17 Range/Units 19:53 17:25 16:35 WBC (4.8-10.8) K/uL RBC (3.80-5.20) Mil/uL Hgb (11.0-16.0) g/dL Hct (34.0-47.0) % MCV (81.0-99.0) fL MCH (27.0-31.0) pg MCHC (33.0-37.0) g/dL RDW (11.5-14.5) % Plt Count (130-400) K/uL MPV (7.2-11.7) fL Neut % (Auto) (50.0-75.0) % Lymph % (Auto) (20.0-40.0) % [place] % (Auto) (0.0-10.0) % Eos % (Auto) (0.0-4.0) % Baso % (Auto) (0.0-2.0) % Neut # (Auto) (1.8-7.0) K/uL Lymph # (Auto) (1.0-4.3) K/uL [place] # (Auto) (0.0-0.8) K/uL Eos # (Auto) (0.0-0.7) K/uL Baso # (Auto) (0.0-0.2) K/uL Neutrophils % (Manual) (50-75) % Band Neutrophils % (0-2) % Lymphocytes % (Manual) (20-40) % Monocytes % (Manual) (0-10) % Metamyelocytes % (0-0) % Platelet Estimate (NORMAL) Hypochromasia (manual) Poikilocytosis (manual Anisocytosis (manual) PT (9.7-12.2) SECONDS INR APTT (21-34) SECONDS Fibrinogen (200-400) mg/dL Puncture Site Fem line pCO2 30 L (35-45) mm/Hg pO2 501 H (80-100) mm/Hg HCO3 17.4 L (21-28) mmol/L ABG pH 7.31 L (7.35-7.45) ABG Total CO2 16.0 L (22-28) mmol/L ABG O2 Saturation 99.9 H (95-98) % ABG Base Excess -9.8 L (-2.0-3.0) mmol/L Gabriel Test Na ABG Potassium 5.7 H (3.6-5.2) mmol/L A-a O2 Difference 175.0 mm/Hg Respiratory Index 0.3 Glucose 131 H (65-105) mg/dl Lactate 2.8 H (0.7-2.1) mmol/L Vent Mode Prvc Mechanical Rate 16 FiO2 100.0 % Tidal Volume 400 PEEP 5 Sodium 133.0 (132-148) mmol/L Potassium (3.6-5.2) mmol/L Chloride 114.0 H (98-107) mmol/L Carbon Dioxide (22-30) mmol/L Anion Gap (10-20) BUN (7-17) mg/dL Creatinine (0.7-1.2) mg/dL Est GFR ( Amer) Est GFR (Non-Af Amer) POC Glucose (mg/dL) 121 H 121 H (65-110) mg/dL Random Glucose (65-105) mg/dL Lactic Acid (0.7-2.1) mmol/L Calcium (8.6-10.4) mg/dl Phosphorus (2.5-4.5) mg/dL Magnesium (1.6-2.3) mg/dL Total Bilirubin (0.2-1.3) mg/dL AST (14-36) U/L ALT (9-52) U/L Alkaline Phosphatase (38-126) U/L Troponin I (0.00-0.120) ng/mL NT-Pro-B Natriuret Pep (0-450) pg/mL Total Protein (6.3-8.3) g/dL Albumin (3.5-5.0) g/dL Globulin (2.2-3.9) gm/dL Albumin/Globulin Ratio (1.0-2.1) Arterial Blood Potassium 5.7 H (3.6-5.2) mmol/L Urine Color (YELLOW) Urine Clarity (Clear) Urine pH (5.0-8.0) Ur Specific [place] (1.003-1.030) Urine Protein (NEGATIVE) mg/dL Urine Glucose (UA) (Normal) mg/dL Urine Ketones (NEGATIVE) mg/dL Urine Blood (NEGATIVE) Urine Nitrate (NEGATIVE) Urine Bilirubin (NEGATIVE) Urine Urobilinogen (0.2-1.0) mg/dL Ur Leukocyte Esterase (Negative) Mahesh/uL Urine WBC (Auto) (0-5) /hpf Urine RBC (Auto) (0-3) /hpf Random Vancomycin ug/mL RPR (NONREACTIVE) Rubella IgG Antibody (POSITIVE) Blood Type Antibody Screen 12/23/17 12/23/17 12/23/17 Range/Units 16:04 14:04 14:04 WBC 14.1 H D (4.8-10.8) K/uL RBC 3.15 L (3.80-5.20) Mil/uL Hgb 9.3 L D (11.0-16.0) g/dL Hct 27.5 L (34.0-47.0) % MCV 87.4 D (81.0-99.0) fL MCH 29.5 (27.0-31.0) pg MCHC 33.7 (33.0-37.0) g/dL RDW 15.1 H (11.5-14.5) % Plt Count 102 L D (130-400) K/uL MPV 7.3 (7.2-11.7) fL Neut % (Auto) 82.8 H (50.0-75.0) % Lymph % (Auto) 9.7 L (20.0-40.0) % [place] % (Auto) 7.2 (0.0-10.0) % Eos % (Auto) 0.0 (0.0-4.0) % Baso % (Auto) 0.3 (0.0-2.0) % Neut # (Auto) 11.7 H (1.8-7.0) K/uL Lymph # (Auto) 1.4 (1.0-4.3) K/uL [place] # (Auto) 1.0 H (0.0-0.8) K/uL Eos # (Auto) 0.0 (0.0-0.7) K/uL Baso # (Auto) 0.0 (0.0-0.2) K/uL Neutrophils % (Manual) 71 (50-75) % Band Neutrophils % 15 H* (0-2) % Lymphocytes % (Manual) 9 L (20-40) % Monocytes % (Manual) 5 (0-10) % Metamyelocytes % (0-0) % Platelet Estimate Slightly decreased L (NORMAL) Hypochromasia (manual) Poikilocytosis (manual Anisocytosis (manual) PT 17.4 H (9.7-12.2) SECONDS INR 1.6 APTT 42 H (21-34) SECONDS Fibrinogen 57 L (200-400) mg/dL Puncture Site pCO2 (35-45) mm/Hg pO2 (80-100) mm/Hg HCO3 (21-28) mmol/L ABG pH (7.35-7.45) ABG Total CO2 (22-28) mmol/L ABG O2 Saturation (95-98) % ABG Base Excess (-2.0-3.0) mmol/L Gabriel Test ABG Potassium (3.6-5.2) mmol/L A-a O2 Difference mm/Hg Respiratory Index Glucose (65-105) mg/dl Lactate (0.7-2.1) mmol/L Vent Mode Mechanical Rate FiO2 % Tidal Volume PEEP Sodium 138 (132-148) mmol/L Potassium 4.5 (3.6-5.2) mmol/L Chloride 109 H (98-107) mmol/L Carbon Dioxide 18 L (22-30) mmol/L Anion Gap 16 (10-20) BUN 8 (7-17) mg/dL Creatinine 0.7 (0.7-1.2) mg/dL Est GFR ( Amer) > 60 Est GFR (Non-Af Amer) > 60 POC Glucose (mg/dL) (65-110) mg/dL Random Glucose 115 H (65-105) mg/dL Lactic Acid (0.7-2.1) mmol/L Calcium 8.3 L (8.6-10.4) mg/dl Phosphorus (2.5-4.5) mg/dL Magnesium (1.6-2.3) mg/dL Total Bilirubin (0.2-1.3) mg/dL AST (14-36) U/L ALT (9-52) U/L Alkaline Phosphatase (38-126) U/L Troponin I 0.0550 (0.00-0.120) ng/mL NT-Pro-B Natriuret Pep 53.6 (0-450) pg/mL Total Protein (6.3-8.3) g/dL Albumin (3.5-5.0) g/dL Globulin (2.2-3.9) gm/dL Albumin/Globulin Ratio (1.0-2.1) Arterial Blood Potassium (3.6-5.2) mmol/L Urine Color (YELLOW) Urine Clarity (Clear) Urine pH (5.0-8.0) Ur Specific [place] (1.003-1.030) Urine Protein (NEGATIVE) mg/dL Urine Glucose (UA) (Normal) mg/dL Urine Ketones (NEGATIVE) mg/dL Urine Blood (NEGATIVE) Urine Nitrate (NEGATIVE) Urine Bilirubin (NEGATIVE) Urine Urobilinogen (0.2-1.0) mg/dL Ur Leukocyte Esterase (Negative) Mahesh/uL Urine WBC (Auto) (0-5) /hpf Urine RBC (Auto) (0-3) /hpf Random Vancomycin ug/mL RPR (NONREACTIVE) Rubella IgG Antibody (POSITIVE) Blood Type Antibody Screen 12/23/17 12/23/17 Range/Units 11:12 10:09 WBC (4.8-10.8) K/uL RBC (3.80-5.20) Mil/uL Hgb (11.0-16.0) g/dL Hct (34.0-47.0) % MCV (81.0-99.0) fL MCH (27.0-31.0) pg MCHC (33.0-37.0) g/dL RDW (11.5-14.5) % Plt Count (130-400) K/uL MPV (7.2-11.7) fL Neut % (Auto) (50.0-75.0) % Lymph % (Auto) (20.0-40.0) % [place] % (Auto) (0.0-10.0) % Eos % (Auto) (0.0-4.0) % Baso % (Auto) (0.0-2.0) % Neut # (Auto) (1.8-7.0) K/uL Lymph # (Auto) (1.0-4.3) K/uL [place] # (Auto) (0.0-0.8) K/uL Eos # (Auto) (0.0-0.7) K/uL Baso # (Auto) (0.0-0.2) K/uL Neutrophils % (Manual) (50-75) % Band Neutrophils % (0-2) % Lymphocytes % (Manual) (20-40) % Monocytes % (Manual) (0-10) % Metamyelocytes % (0-0) % Platelet Estimate (NORMAL) Hypochromasia (manual) Poikilocytosis (manual Anisocytosis (manual) PT (9.7-12.2) SECONDS INR APTT (21-34) SECONDS Fibrinogen (200-400) mg/dL Puncture Site pCO2 (35-45) mm/Hg pO2 (80-100) mm/Hg HCO3 (21-28) mmol/L ABG pH (7.35-7.45) ABG Total CO2 (22-28) mmol/L ABG O2 Saturation (95-98) % ABG Base Excess (-2.0-3.0) mmol/L Gabriel Test ABG Potassium (3.6-5.2) mmol/L A-a O2 Difference mm/Hg Respiratory Index Glucose (65-105) mg/dl Lactate (0.7-2.1) mmol/L Vent Mode Mechanical Rate FiO2 % Tidal Volume PEEP Sodium (132-148) mmol/L Potassium (3.6-5.2) mmol/L Chloride (98-107) mmol/L Carbon Dioxide (22-30) mmol/L Anion Gap (10-20) BUN (7-17) mg/dL Creatinine (0.7-1.2) mg/dL Est GFR ( Amer) Est GFR (Non-Af Amer) POC Glucose (mg/dL) (65-110) mg/dL Random Glucose (65-105) mg/dL Lactic Acid (0.7-2.1) mmol/L Calcium (8.6-10.4) mg/dl Phosphorus (2.5-4.5) mg/dL Magnesium (1.6-2.3) mg/dL Total Bilirubin (0.2-1.3) mg/dL AST (14-36) U/L ALT (9-52) U/L Alkaline Phosphatase (38-126) U/L Troponin I (0.00-0.120) ng/mL NT-Pro-B Natriuret Pep (0-450) pg/mL Total Protein (6.3-8.3) g/dL Albumin (3.5-5.0) g/dL Globulin (2.2-3.9) gm/dL Albumin/Globulin Ratio (1.0-2.1) Arterial Blood Potassium (3.6-5.2) mmol/L Urine Color (YELLOW) Urine Clarity (Clear) Urine pH (5.0-8.0) Ur Specific [place] (1.003-1.030) Urine Protein (NEGATIVE) mg/dL Urine Glucose (UA) (Normal) mg/dL Urine Ketones (NEGATIVE) mg/dL Urine Blood (NEGATIVE) Urine Nitrate (NEGATIVE) Urine Bilirubin (NEGATIVE) Urine Urobilinogen (0.2-1.0) mg/dL Ur Leukocyte Esterase (Negative) Mahesh/uL Urine WBC (Auto) (0-5) /hpf Urine RBC (Auto) (0-3) /hpf Random Vancomycin ug/mL RPR Nonreactive (NONREACTIVE) Rubella IgG Antibody Positive (POSITIVE) Blood Type B POSITIVE Antibody Screen Negative Laboratory Results - last 24 hr 12/23/17 12/23/17 12/23/17 10:09 11:12 14:04 WBC RBC Hgb Hct MCV MCH MCHC RDW Plt Count MPV Neut % (Auto) Lymph % (Auto) [place] % (Auto) Eos % (Auto) Baso % (Auto) Neut # (Auto) Lymph # (Auto) [place] # (Auto) Eos # (Auto) Baso # (Auto) Neutrophils % (Manual) Band Neutrophils % Lymphocytes % (Manual) Monocytes % (Manual) Metamyelocytes % Platelet Estimate Hypochromasia (manual) Poikilocytosis (manual Anisocytosis (manual) PT 17.4 H INR 1.6 APTT 42 H Fibrinogen 57 L Puncture Site pCO2 pO2 HCO3 ABG pH ABG Total CO2 ABG O2 Saturation ABG Base Excess Gabriel Test ABG Potassium A-a O2 Difference Respiratory Index Glucose Lactate Vent Mode Mechanical Rate FiO2 Tidal Volume PEEP Sodium Potassium Chloride Carbon Dioxide Anion Gap BUN Creatinine Est GFR ( Amer) Est GFR (Non-Af Amer) POC Glucose (mg/dL) Random Glucose Lactic Acid Calcium Phosphorus Magnesium Total Bilirubin AST ALT Alkaline Phosphatase Troponin I NT-Pro-B Natriuret Pep Total Protein Albumin Globulin Albumin/Globulin Ratio Arterial Blood Potassium Urine Color Urine Clarity Urine pH Ur Specific [place] Urine Protein Urine Glucose (UA) Urine Ketones Urine Blood Urine Nitrate Urine Bilirubin Urine Urobilinogen Ur Leukocyte Esterase Urine WBC (Auto) Urine RBC (Auto) Random Vancomycin RPR Nonreactive Rubella IgG Antibody Positive Blood Type B POSITIVE Antibody Screen Negative 12/23/17 12/23/17 12/23/17 14:04 16:04 16:35 WBC 14.1 H D RBC 3.15 L Hgb 9.3 L D Hct 27.5 L MCV 87.4 D MCH 29.5 MCHC 33.7 RDW 15.1 H Plt Count 102 L D MPV 7.3 Neut % (Auto) 82.8 H Lymph % (Auto) 9.7 L [place] % (Auto) 7.2 Eos % (Auto) 0.0 Baso % (Auto) 0.3 Neut # (Auto) 11.7 H Lymph # (Auto) 1.4 [place] # (Auto) 1.0 H Eos # (Auto) 0.0 Baso # (Auto) 0.0 Neutrophils % (Manual) 71 Band Neutrophils % 15 H* Lymphocytes % (Manual) 9 L Monocytes % (Manual) 5 Metamyelocytes % Platelet Estimate Slightly decreased L Hypochromasia (manual) Poikilocytosis (manual Anisocytosis (manual) PT INR APTT Fibrinogen Puncture Site Fem line pCO2 30 L pO2 501 H HCO3 17.4 L ABG pH 7.31 L ABG Total CO2 16.0 L ABG O2 Saturation 99.9 H ABG Base Excess -9.8 L Gabriel Test Na ABG Potassium 5.7 H A-a O2 Difference 175.0 Respiratory Index 0.3 Glucose 131 H Lactate 2.8 H Vent Mode Prvc Mechanical Rate 16 FiO2 100.0 Tidal Volume 400 PEEP 5 Sodium 138 133.0 Potassium 4.5 Chloride 109 H 114.0 H Carbon Dioxide 18 L Anion Gap 16 BUN 8 Creatinine 0.7 Est GFR ( Amer) > 60 Est GFR (Non-Af Amer) > 60 POC Glucose (mg/dL) Random Glucose 115 H Lactic Acid Calcium 8.3 L Phosphorus Magnesium Total Bilirubin AST ALT Alkaline Phosphatase Troponin I 0.0550 NT-Pro-B Natriuret Pep 53.6 Total Protein Albumin Globulin Albumin/Globulin Ratio Arterial Blood Potassium 5.7 H Urine Color Urine Clarity Urine pH Ur Specific [place] Urine Protein Urine Glucose (UA) Urine Ketones Urine Blood Urine Nitrate Urine Bilirubin Urine Urobilinogen Ur Leukocyte Esterase Urine WBC (Auto) Urine RBC (Auto) Random Vancomycin RPR Rubella IgG Antibody Blood Type Antibody Screen 12/23/17 12/23/17 12/23/17 17:25 19:53 20:20 WBC 13.0 H RBC 3.02 L Hgb 8.9 L Hct 26.0 L MCV 86.1 MCH 29.3 MCHC 34.1 RDW 14.9 H Plt Count 84 L MPV 7.6 Neut % (Auto) 86.7 H Lymph % (Auto) 7.5 L [place] % (Auto) 5.7 Eos % (Auto) 0.0 Baso % (Auto) 0.1 Neut # (Auto) 11.2 H Lymph # (Auto) 1.0 [place] # (Auto) 0.7 Eos # (Auto) 0.0 Baso # (Auto) 0.0 Neutrophils % (Manual) 69 Band Neutrophils % 15 H* Lymphocytes % (Manual) 10 L Monocytes % (Manual) 4 Metamyelocytes % 2 H Platelet Estimate Decreased L Hypochromasia (manual) Poikilocytosis (manual Anisocytosis (manual) PT INR APTT Fibrinogen Puncture Site pCO2 pO2 HCO3 ABG pH ABG Total CO2 ABG O2 Saturation ABG Base Excess Gabriel Test ABG Potassium A-a O2 Difference Respiratory Index Glucose Lactate Vent Mode Mechanical Rate FiO2 Tidal Volume PEEP Sodium Potassium Chloride Carbon Dioxide Anion Gap BUN Creatinine Est GFR ( Amer) Est GFR (Non-Af Amer) POC Glucose (mg/dL) 121 H 121 H Random Glucose Lactic Acid Calcium Phosphorus Magnesium Total Bilirubin AST ALT Alkaline Phosphatase Troponin I NT-Pro-B Natriuret Pep Total Protein Albumin Globulin Albumin/Globulin Ratio Arterial Blood Potassium Urine Color Urine Clarity Urine pH Ur Specific [place] Urine Protein Urine Glucose (UA) Urine Ketones Urine Blood Urine Nitrate Urine Bilirubin Urine Urobilinogen Ur Leukocyte Esterase Urine WBC (Auto) Urine RBC (Auto) Random Vancomycin RPR Rubella IgG Antibody Blood Type Antibody Screen 12/23/17 12/23/17 12/23/17 20:20 20:20 20:20 WBC RBC Hgb Hct MCV MCH MCHC RDW Plt Count MPV Neut % (Auto) Lymph % (Auto) [place] % (Auto) Eos % (Auto) Baso % (Auto) Neut # (Auto) Lymph # (Auto) [place] # (Auto) Eos # (Auto) Baso # (Auto) Neutrophils % (Manual) Band Neutrophils % Lymphocytes % (Manual) Monocytes % (Manual) Metamyelocytes % Platelet Estimate Hypochromasia (manual) Poikilocytosis (manual Anisocytosis (manual) PT 13.2 H INR 1.2 APTT 32 D Fibrinogen Puncture Site pCO2 pO2 HCO3 ABG pH ABG Total CO2 ABG O2 Saturation ABG Base Excess Gabriel Test ABG Potassium A-a O2 Difference Respiratory Index Glucose Lactate Vent Mode Mechanical Rate FiO2 Tidal Volume PEEP Sodium 136 Potassium 6.2 H* D Chloride 111 H Carbon Dioxide 17 L Anion Gap 14 BUN 15 Creatinine 1.2 Est GFR ( Amer) > 60 Est GFR (Non-Af Amer) 51 POC Glucose (mg/dL) Random Glucose 111 H Lactic Acid Calcium 9.3 Phosphorus Magnesium Total Bilirubin 3.3 H AST 51 H ALT 28 Alkaline Phosphatase 46 Troponin I NT-Pro-B Natriuret Pep Total Protein 4.0 L Albumin 1.9 L Globulin 2.1 L Albumin/Globulin Ratio 0.9 L Arterial Blood Potassium Urine Color Sabrina Urine Clarity Hazy Urine pH 6.0 Ur Specific [place] 1.017 Urine Protein 2+ H Urine Glucose (UA) 1+ Urine Ketones Negative Urine Blood 2+ H Urine Nitrate Negative Urine Bilirubin Negative Urine Urobilinogen Normal Ur Leukocyte Esterase Neg Urine WBC (Auto) 2 Urine RBC (Auto) 3801 H Random Vancomycin RPR Rubella IgG Antibody Blood Type Antibody Screen 12/23/17 12/23/17 12/23/17 21:34 23:22 23:22 WBC 12.0 H RBC 2.82 L Hgb 8.3 L Hct 24.3 L MCV 86.2 MCH 29.5 MCHC 34.2 RDW 15.2 H Plt Count 78 L MPV 7.8 Neut % (Auto) 85.7 H Lymph % (Auto) 7.8 L [place] % (Auto) 6.2 Eos % (Auto) 0.0 Baso % (Auto) 0.3 Neut # (Auto) 10.3 H Lymph # (Auto) 0.9 L [place] # (Auto) 0.7 Eos # (Auto) 0.0 Baso # (Auto) 0.0 Neutrophils % (Manual) Band Neutrophils % Lymphocytes % (Manual) Monocytes % (Manual) Metamyelocytes % Platelet Estimate Hypochromasia (manual) Poikilocytosis (manual Anisocytosis (manual) PT 12.5 H INR 1.1 APTT 31 Fibrinogen Puncture Site Fem line pCO2 31 L pO2 273 H HCO3 18.1 L ABG pH 7.32 L ABG Total CO2 17.0 L ABG O2 Saturation 99.3 H ABG Base Excess -8.9 L Gabriel Test Na ABG Potassium 5.8 H A-a O2 Difference 116.0 Respiratory Index 0.4 Glucose 98 Lactate 3.0 H Vent Mode Prvc Mechanical Rate 22 FiO2 60.0 Tidal Volume 400 PEEP 5 Sodium 135.0 Potassium Chloride 113.0 H Carbon Dioxide Anion Gap BUN Creatinine Est GFR ( Amer) Est GFR (Non-Af Amer) POC Glucose (mg/dL) Random Glucose Lactic Acid Calcium Phosphorus Magnesium Total Bilirubin AST ALT Alkaline Phosphatase Troponin I NT-Pro-B Natriuret Pep Total Protein Albumin Globulin Albumin/Globulin Ratio Arterial Blood Potassium 5.8 H Urine Color Urine Clarity Urine pH Ur Specific [place] Urine Protein Urine Glucose (UA) Urine Ketones Urine Blood Urine Nitrate Urine Bilirubin Urine Urobilinogen Ur Leukocyte Esterase Urine WBC (Auto) Urine RBC (Auto) Random Vancomycin RPR Rubella IgG Antibody Blood Type Antibody Screen 12/23/17 12/23/17 12/24/17 23:22 23:43 04:14 WBC RBC Hgb Hct MCV MCH MCHC RDW Plt Count MPV Neut % (Auto) Lymph % (Auto) [place] % (Auto) Eos % (Auto) Baso % (Auto) Neut # (Auto) Lymph # (Auto) [place] # (Auto) Eos # (Auto) Baso # (Auto) Neutrophils % (Manual) Band Neutrophils % Lymphocytes % (Manual) Monocytes % (Manual) Metamyelocytes % Platelet Estimate Hypochromasia (manual) Poikilocytosis (manual Anisocytosis (manual) PT INR APTT Fibrinogen Puncture Site pCO2 pO2 HCO3 ABG pH ABG Total CO2 ABG O2 Saturation ABG Base Excess Gabriel Test ABG Potassium A-a O2 Difference Respiratory Index Glucose Lactate Vent Mode Mechanical Rate FiO2 Tidal Volume PEEP Sodium 134 Potassium 6.2 H* Chloride 111 H Carbon Dioxide 17 L Anion Gap 11 BUN 16 Creatinine 1.3 H Est GFR ( Amer) 56 Est GFR (Non-Af Amer) 46 POC Glucose (mg/dL) 97 111 H Random Glucose 89 Lactic Acid Calcium 8.4 L Phosphorus Magnesium Total Bilirubin AST ALT Alkaline Phosphatase Troponin I NT-Pro-B Natriuret Pep Total Protein Albumin Globulin Albumin/Globulin Ratio Arterial Blood Potassium Urine Color Urine Clarity Urine pH Ur Specific [place] Urine Protein Urine Glucose (UA) Urine Ketones Urine Blood Urine Nitrate Urine Bilirubin Urine Urobilinogen Ur Leukocyte Esterase Urine WBC (Auto) Urine RBC (Auto) Random Vancomycin RPR Rubella IgG Antibody Blood Type Antibody Screen 12/24/17 12/24/17 12/24/17 04:33 04:33 04:33 WBC 11.2 H RBC 2.92 L Hgb 8.5 L Hct 24.7 L MCV 84.8 MCH 29.0 MCHC 34.2 RDW 15.7 H Plt Count 67 L MPV 8.0 Neut % (Auto) 87.6 H Lymph % (Auto) 7.5 L [place] % (Auto) 4.7 Eos % (Auto) 0.0 Baso % (Auto) 0.2 Neut # (Auto) 9.8 H Lymph # (Auto) 0.8 L [place] # (Auto) 0.5 Eos # (Auto) 0.0 Baso # (Auto) 0.0 Neutrophils % (Manual) 84 H Band Neutrophils % 7 H Lymphocytes % (Manual) 5 L Monocytes % (Manual) 4 Metamyelocytes % Platelet Estimate Decreased L Hypochromasia (manual) Slight Poikilocytosis (manual Slight Anisocytosis (manual) Slight PT INR APTT Fibrinogen 356 D Puncture Site pCO2 pO2 HCO3 ABG pH ABG Total CO2 ABG O2 Saturation ABG Base Excess Gabriel Test ABG Potassium A-a O2 Difference Respiratory Index Glucose Lactate Vent Mode Mechanical Rate FiO2 Tidal Volume PEEP Sodium 135 Potassium 5.4 H Chloride 111 H Carbon Dioxide 18 L Anion Gap 11 BUN 19 H Creatinine 1.8 H Est GFR ( Amer) 38 Est GFR (Non-Af Amer) 32 POC Glucose (mg/dL) Random Glucose 103 Lactic Acid Calcium 8.2 L Phosphorus 5.3 H Magnesium 1.1 L Total Bilirubin 1.9 H AST 61 H ALT 33 Alkaline Phosphatase 45 Troponin I NT-Pro-B Natriuret Pep Total Protein 3.7 L Albumin 1.7 L Globulin 2.0 L Albumin/Globulin Ratio 0.9 L Arterial Blood Potassium Urine Color Urine Clarity Urine pH Ur Specific [place] Urine Protein Urine Glucose (UA) Urine Ketones Urine Blood Urine Nitrate Urine Bilirubin Urine Urobilinogen Ur Leukocyte Esterase Urine WBC (Auto) Urine RBC (Auto) Random Vancomycin RPR Rubella IgG Antibody Blood Type Antibody Screen 12/24/17 12/24/17 12/24/17 04:33 05:06 08:26 WBC RBC Hgb Hct MCV MCH MCHC RDW Plt Count MPV Neut % (Auto) Lymph % (Auto) [place] % (Auto) Eos % (Auto) Baso % (Auto) Neut # (Auto) Lymph # (Auto) [place] # (Auto) Eos # (Auto) Baso # (Auto) Neutrophils % (Manual) Band Neutrophils % Lymphocytes % (Manual) Monocytes % (Manual) Metamyelocytes % Platelet Estimate Hypochromasia (manual) Poikilocytosis (manual Anisocytosis (manual) PT INR APTT Fibrinogen Puncture Site Ronna pCO2 32 L pO2 231 H HCO3 19.7 L ABG pH 7.35 ABG Total CO2 18.7 L ABG O2 Saturation 99.0 H ABG Base Excess -6.8 L Gabriel Test Na ABG Potassium 5.1 A-a O2 Difference 14.0 Respiratory Index 0.1 Glucose 98 Lactate 1.4 Vent Mode Prvc Mechanical Rate 22 FiO2 40.0 Tidal Volume 400 PEEP 5 Sodium 134.0 Potassium Chloride 111.0 H Carbon Dioxide Anion Gap BUN Creatinine Est GFR ( Amer) Est GFR (Non-Af Amer) POC Glucose (mg/dL) 109 Random Glucose Lactic Acid 1.3 Calcium Phosphorus Magnesium Total Bilirubin AST ALT Alkaline Phosphatase Troponin I NT-Pro-B Natriuret Pep Total Protein Albumin Globulin Albumin/Globulin Ratio Arterial Blood Potassium 5.1 Urine Color Urine Clarity Urine pH Ur Specific [place] Urine Protein Urine Glucose (UA) Urine Ketones Urine Blood Urine Nitrate Urine Bilirubin Urine Urobilinogen Ur Leukocyte Esterase Urine WBC (Auto) Urine RBC (Auto) Random Vancomycin RPR Rubella IgG Antibody Blood Type Antibody Screen 12/24/17 12/24/17 10:53 11:23 WBC RBC Hgb Hct MCV MCH MCHC RDW Plt Count MPV Neut % (Auto) Lymph % (Auto) [place] % (Auto) Eos % (Auto) Baso % (Auto) Neut # (Auto) Lymph # (Auto) [place] # (Auto) Eos # (Auto) Baso # (Auto) Neutrophils % (Manual) Band Neutrophils % Lymphocytes % (Manual) Monocytes % (Manual) Metamyelocytes % Platelet Estimate Hypochromasia (manual) Poikilocytosis (manual Anisocytosis (manual) PT INR APTT Fibrinogen Puncture Site pCO2 pO2 HCO3 ABG pH ABG Total CO2 ABG O2 Saturation ABG Base Excess Gabriel Test ABG Potassium A-a O2 Difference Respiratory Index Glucose Lactate Vent Mode Mechanical Rate FiO2 Tidal Volume PEEP Sodium Potassium Chloride Carbon Dioxide Anion Gap BUN Creatinine Est GFR ( Amer) Est GFR (Non-Af Amer) POC Glucose (mg/dL) 107 Random Glucose Lactic Acid Calcium Phosphorus Magnesium Total Bilirubin AST ALT Alkaline Phosphatase Troponin I NT-Pro-B Natriuret Pep Total Protein Albumin Globulin Albumin/Globulin Ratio Arterial Blood Potassium Urine Color Urine Clarity Urine pH Ur Specific [place] Urine Protein Urine Glucose (UA) Urine Ketones Urine Blood Urine Nitrate Urine Bilirubin Urine Urobilinogen Ur Leukocyte Esterase Urine WBC (Auto) Urine RBC (Auto) Random Vancomycin 11.9 RPR Rubella IgG Antibody Blood Type Antibody Screen EKG/Cardiology Studies: Cardiology / EKG Studies 12/23/17 17:21 EKG [ELECTROCARDIOGRAM] Stat Comment: Mode Of Transportation: Reason For Exam: svt 12/23/17 21:02 ELECTROCARDIOGRAM Routine Comment: Mode Of Transportation: PORTABLE Reason For Exam: elevated K+ Critical Care Progress Note - Nutrition Nutrition: Nutrition Category Date Time Status NPO Diet [DIET] Diets 12/22/17 Dinner Active Assessment/Plan - Assessment and Plan (Free Text) Plan: Patient seen and examined at bedside with above resident. Patient tolerated CPAP , fibrinogen >150. hemodynamics stable -extubate -d/c lee -d/c arterial line -Patient remains hemodyanmically stable -pt/ot -oob to chair -cc time 35 minutes - Date & Time Date: 12/24/17 Time: 13:24
[2017-12-24] MEDS: HYDROmorphone 0.5 mg/0.5 ml ISec IVP PRN ×3 (10:55→23:35)
--- NOTE | 2017-12-24 11:36 | PCM.PROC ---
Procedures Attestation:: I certify that I have explained the specified Operation(s) or Procedure(s), risks, benefits and reasonable alternatives to the Patient and/or other person responsible. The opportunity was given to ask questions and all questions answered - Central Line Placement Right Internal Jugular Triple Lumen Catheter Aseptic technique was employed throughout the procedure: Full sterile barriers ( mask, hair cover, sterile gown, sterile gloves), Full body sterile drape, Chloraprep Antiseptic: 30 second prep for IJ or SC sites CVP Time Out Performed: Yes Pt. Placed on Pulse Ox Monitor: Yes Central Line Prep: Chlorhexidine-Alcohol Combination Local Anesthesia Used: Lidocaine 1% Amount of Anesthesia Used (mls): 5 Ultrasound Used for Placement: Yes Central Line Lumen Inserted: triple Central Line Length: 20 cm Post Procedure: Sutured in Place, Good Blood Return, All Ports Aspirated, Flushed, Capped, Sterile Dressing Applied Secured by: Suture Post procedure dressing: Gauze, Clear vapor permeable, Chlorhexidine disc ( Biopatch) Post Procedure X-Ray: Yes Patient Tolerated Procedure: Well Immediate Complications: None
--- NOTE | 2017-12-24 18:03 | VASCLAB ---
PROCEDURE: Lower Extremity Venous Duplex Exam. HISTORY: r/o dvt EDEMA BOTH LOWER EXTRIMIES PRIORS: None. TECHNIQUE: Bilateral common femoral, femoral, popliteal and posterior tibial, peroneal and great saphenous veins were evaluated. Flow was assessed with color Doppler, compressibility, assessment of phasic flow and augmentation response. Report prepared by Kathe Arriaza, KIMMIE, RVS FINDINGS: RIGHT: 1. Common Femoral Vein: 1.1. Not visualized 2. Femoral Vein: 2.1. Compressibility - Fully compressible: Thrombus - None : Flow - Phasic: Augmentation -Normal: Reflux - None. 3. Popliteal Vein: 3.1. Compressibility - Fully compressible: Thrombus - None : Flow - Phasic: Augmentation -Normal: Reflux - None. 4. Posterior Tibial Vein: 4.1. Compressibility - Fully compressible: Thrombus - None: Flow - Phasic: Augmentation -Normal: Reflux - None. 5. Peroneal Vein: 5.1. Compressibility - Fully compressible: Thrombus - None: Flow - Phasic: Augmentation -Normal: Reflux - None. 6. Great Saphenous Vein: 6.1. Compressibility - Fully compressible: Thrombus - None: Flow - Phasic: Augmentation - Normal: Reflux - None. LEFT: 1. Common Femoral Vein: 1.1. Compressibility - Fully compressible: Thrombus - None: Flow - Phasic: Augmentation -Normal: Reflux - None. 2. Femoral Vein: 2.1. Compressibility - Fully compressible: Thrombus - None: Flow - Phasic: Augmentation -Normal: Reflux - None. 3. Popliteal Vein: 3.1. Compressibility - Fully compressible: Thrombus - None : Flow - Phasic: Augmentation -Normal: Reflux - None. 4. Posterior Tibial Vein: 4.1. Compressibility - Fully compressible: Thrombus - None: Flow - Phasic: Augmentation -Normal: Reflux - None. 5. Peroneal Vein: 5.1. Compressibility - Fully compressible: Thrombus - None: Flow - Phasic: Augmentation -Normal: Reflux - None. 6. Great Saphenous Vein: 6.1. Compressibility - Fully compressible: Thrombus - None: Flow - Phasic: Augmentation - Normal: Reflux - None. OTHER FINDINGS: Right: None significant. Left: None significant. IMPRESSION: Right: No evidence of deep vein thrombosis of the right lower extremity. Normal valve function noted of the right side. Right common femoral vein and proximal femoral vein were not imaged due to the bandage. Left: No evidence of deep or superficial vein thrombosis of the left lower extremity. Normal valve function noted of the left side.
--- NOTE | 2017-12-24 18:05 | VASCLAB ---
PROCEDURE: Upper Extremity Venous Duplex Exam HISTORY: r/o dvt edema both arm, PRIORS: None. TECHNIQUE: Bilateral upper extremity, internal jugular, subclavian, axillary, brachial, ulnar, radial, basilic and upper cephalic veins were evaluated. Flow was assessed with color Doppler, compressibility, assessment of phasic flow and augmentation response. Report prepared by Kathe Arriaza, RDCS, RVS FINDINGS: RIGHT: 1. Internal Jugular: 1.1. Compressibility - Fully compressible: Thrombus - None : Flow - Phasic: Augmentation -Normal: Reflux - None. 2. Subclavian: 2.1. Compressibility - Fully compressible: Thrombus - None : Flow - Phasic: Augmentation -Normal: Reflux - None. 3. Axillary: 3.1. Compressibility - Fully compressible: Thrombus - None : Flow - Phasic: Augmentation -Normal: Reflux - None. 4. Brachial: 4.1. Compressibility - Fully compressible: Thrombus - None: Flow - Phasic: Augmentation -Normal: Reflux - None. 5. Ulnar: 5.1. Compressibility - Fully compressible: Thrombus - None: Flow - Phasic: Augmentation -Normal: Reflux - None. 6. Radial: 6.1. Compressibility - Fully compressible: Thrombus - None: Flow - Phasic: Augmentation - Normal: Reflux - None. 7. Cephalic: 7.1. Compressibility - Fully compressible: Thrombus - None: Flow - Phasic: Augmentation -Normal: Reflux - None. 8. Basilic: 8.1. Compressibility - Fully compressible: Thrombus - None: Flow - Phasic: Augmentation -Normal: Reflux - None. LEFT: 1. Internal Jugular: 1.1. Compressibility - : Thrombus - : Flow - : Augmentation -: Reflux - . 2. Subclavian: 2.1. Compressibility - Fully compressible: Thrombus - None : Flow - Phasic: Augmentation -Normal: Reflux - None. 3. Axillary: 3.1. Compressibility - Fully compressible: Thrombus - None : Flow - Phasic: Augmentation -Normal: Reflux - None. 4. Brachial: 4.1. Compressibility - Fully compressible: Thrombus - None: Flow - Phasic: Augmentation -Normal: Reflux - None. 5. Ulnar: 5.1. Compressibility - : Thrombus - : Flow - augmentation -: Reflux - . 6. Radial: 6.1. Compressibility - Fully compressible: Thrombus - None: Flow - Phasic: Augmentation - Normal: Reflux - None. 7. Cephalic: 7.1. Compressibility - : Thrombus - : Flow - : Augmentation -: Reflux - . 8. Basilic: 8.1. Compressibility - : Thrombus - : Flow - : Augmentation -: Reflux - . OTHER FINDINGS: Right: None. Left: None. IMPRESSION: Right: No evidence of vein thrombosis of the right upper extremity with excellent venous flow. Normal valve function noted of the right side. Left: No evidence of vein thrombosis of the left upper extremity with excellent venous flow. Normal valve function noted of the left side. Left Jugular vein was not scanned due to a central line. Left ulnar, cephalic and basilic vein could not visulized.
[2017-12-24 18:08] LABS: BASO % 0.1 % (0.0-2.0); EOS % 0.1 % (0.0-4.0); LYMPH # 0.7 K/uL (1.0-4.3); LYMPH % 5.5 % (20.0-40.0); MEAN CELL VOLUME 85.1 fL (81.0-99.0); MEAN CORPUSCULAR HEMOGLOBIN 28.4 pg (27.0-31.0); MEAN CORPUSCULAR HGB CONC 33.4 g/dL (33.0-37.0); MONO # 0.7 K/uL (0.0-0.8); MONO % 5.1 % (0.0-10.0); NEUT # 11.6 K/uL (1.8-7.0); NEUT % 89.2 % (50.0-75.0); PLATELET COUNT 99 K/uL (130-400); RBC 2.83 Mil/uL (3.80-5.20); RED CELL DISTRIBUTION WIDTH 16.5 % (11.5-14.5)
[2017-12-24 18:31] LABS: ALB/GLOB RATIO 0.9 (1.0-2.1); ALBUMIN 2.2 g/dL (3.5-5.0); CALCIUM 8.2 mg/dl (8.6-10.4)
[2017-12-24 19:22] LABS: BANDS 5 % (0-2); LYMPHOCYTE 5 % (20-40); MONOCYTE 3 % (0-10); NEUTROPHIL 87 % (50-75); PLATELET ESTIMATE DECREASED (NORMAL); TOTAL CELLS COUNTED 100
[2017-12-24 19:23] LABS: ANISOCYTOSIS SLIGHT; POIKILOCYTOSIS SLIGHT
[2017-12-25] MEDS: Piperacill/Tazo 2.25gm in Dex 2.25 GM/50 ML BAG IVPB SCH ×4 (02:22→16:35)
[2017-12-25] MEDS: Sodium Chloride 0.9% 1,000 ML IV SCH (02:23)
[2017-12-25] MEDS: HYDROmorphone 0.5 mg/0.5 ml ISec IVP PRN ×3 (05:44→18:25)
[2017-12-25 06:33] LABS: BASO % 0.3 % (0.0-2.0); EOS % 0.3 % (0.0-4.0); LYMPH # 0.8 K/uL (1.0-4.3); MEAN CELL VOLUME 85.6 fL (81.0-99.0); MEAN CORPUSCULAR HEMOGLOBIN 29.5 pg (27.0-31.0); MEAN CORPUSCULAR HGB CONC 34.4 g/dL (33.0-37.0); MEAN PLATELET VOLUME 8.2 fL (7.2-11.7); MONO # 0.6 K/uL (0.0-0.8); MONO % 5.9 % (0.0-10.0); NEUT # 9.4 K/uL (1.8-7.0); NEUT % 86.5 % (50.0-75.0); PLATELET COUNT 107 K/uL (130-400); RBC 2.39 Mil/uL (3.80-5.20); RED CELL DISTRIBUTION WIDTH 16.8 % (11.5-14.5); WHITE BLOOD COUNT 10.9 K/uL (4.8-10.8)
[2017-12-25 06:54] LABS: ALB/GLOB RATIO 0.9 (1.0-2.1); CALCIUM 7.9 mg/dl (8.6-10.4)
[2017-12-25 08:14] LABS: BANDS 7 % (0-2); LYMPHOCYTE 5 % (20-40); TOTAL CELLS COUNTED 100
[2017-12-25 08:15] LABS: MONOCYTE 2 % (0-10); NEUTROPHIL 86 % (50-75)
[2017-12-25 08:16] LABS: ANISOCYTOSIS SLIGHT; LARGE PLATELETS PRESENT; PLATELET ESTIMATE DECREASED (NORMAL)
[2017-12-25] MEDS: Magnesium Sulfate 1 gm in D5W 1 GM/100 ML BAG IVPB SCH ×2 (09:16→09:40)
[2017-12-25] MEDS ORDERED: Sodium Bicarbonate 8.4% 150 MEQ in Dextrose 5% In Water 1,000 ML IV SCH (09:30)
--- NOTE | 2017-12-25 09:55 | CP.CCUPN ---
<Esther Yuan - Last Filed: 12/25/17 09:52> CCU Subjective - Physician Review Subjective (Free Text): Patient seen and examined at bedside with ICU attending. Patient is tolerating diet, ambulating around her room. She denied dizziness, shortness of breath, chest pain, bm, or passing flatus. CCU Objective - Vital Signs / Intake & Output Vital Signs (Last 4 hours): Vital Signs Pulse Resp BP Pulse Ox 12/25/17 09:02 101 H 14 105/64 100 12/25/17 09:00 103 H 12 100 12/25/17 08:02 111 H 22 132/77 98 12/25/17 08:00 133 H 15 100 12/25/17 07:02 91 H 15 108/68 100 12/25/17 07:00 87 12 100 12/25/17 06:02 97 H 11 L 113/64 100 12/25/17 06:00 94 H 15 100 Intake and Output (Last 8hrs): Intake & Output 12/24/17 12/25/17 12/25/17 22:59 06:59 14:59 Intake Total 672.5 637.5 150 Output Total 300 300 0 Balance 372.5 337.5 150 Weight 152 lb 11.2 oz Intake: Intake, IV Amount 612.5 637.5 150 Left Proximal Port 612.5 637.5 150 left medial ivpb 0 Oral 60 Output: Urine 300 300 0 Urine, Voided 300 300 0 Emesis 0 0 Other: # Bowel Movements 0 0 0 - Physical Exam Head: Positive for: Atraumatic, Normocephalic Pupils: Positive for: PERRL Extroacular Muscles: Positive for: EOMI Conjunctiva: Positive for: Normal Mouth: Positive for: Moist Mucous Membranes Respiratory/Chest: Positive for: Clear to Auscultation Cardiovascular: Positive for: Regular Rate and Rhythm Abdomen: Positive for: Tenderness, Distention, Normal Bowel Sounds, Other ( abdominal binder in place ) Upper Extremity: Positive for: Normal Inspection, NORMAL PULSES, Neurovascularly Intact Lower Extremity: Positive for: Normal Inspection, NORMAL PULSES, Neurovascularly Intact. Negative for: CALF TENDERNESS Neurological: Positive for: GCS=15, CN II-XII Intact Skin: Positive for: Warm, Dry Psychiatric: Positive for: Alert, Oriented x 3 - Medications Active Medications: Active Medications Generic Name Dose Route Start Last Admin Trade Name Freq PRN Reason Stop Dose Admin Acetaminophen 650 mg 12/22/17 21:38 Tylenol 650 Mg Supp MD Q6 PRN Fever >100.4 F Acetylcysteine 600 ml 12/25/17 09:00 Acetylcysteine 20% PO Q12 [facility] Hydromorphone HCl 0.5 mg 12/24/17 10:30 12/25/17 05:44 Dilaudid IVP 0.5 mg Q6H PRN Administration Pain, severe (8-10) Doxycycline Hyclate 100 mg/ 100 mls @ 100 mls/hr 12/23/17 18:00 12/25/17 05: 33 Sodium Chloride IVPB 100 mls/hr Q12H [facility] Administration Protocol Sodium Bicarbonate 150 meq/ 1,150 mls @ 50 mls/hr 12/25/17 09:30 Dextrose IV .Q23H [facility] Piperacillin Sod/Tazobactam Sod 2.25 gm in 50 mls @ 100 mls/hr 12/25/17 09:30 12/25/17 09:00 Zosyn 2.25 Gm Iv Premix IVPB Not Given Q8H [facility] Protocol - Patient Studies Lab Studies: Microbiology Studies 12/23/17 18:27 MRSA Culture (Admit) - Final Nose MRSA NOT DETECTED Lab Studies 12/25/17 12/25/17 12/25/17 Range/Units 06:29 06:29 05:42 WBC 10.9 H (4.8-10.8) K/uL RBC 2.39 L (3.80-5.20) Mil/uL Hgb 7.0 L (11.0-16.0) g/dL Hct 20.4 L (34.0-47.0) % MCV 85.6 (81.0-99.0) fL MCH 29.5 (27.0-31.0) pg MCHC 34.4 (33.0-37.0) g/dL RDW 16.8 H (11.5-14.5) % Plt Count 107 L (130-400) K/uL MPV 8.2 (7.2-11.7) fL Neut % (Auto) 86.5 H (50.0-75.0) % Lymph % (Auto) 7.0 L (20.0-40.0) % Braxton % (Auto) 5.9 (0.0-10.0) % Eos % (Auto) 0.3 (0.0-4.0) % Baso % (Auto) 0.3 (0.0-2.0) % Neut # (Auto) 9.4 H (1.8-7.0) K/uL Lymph # (Auto) 0.8 L (1.0-4.3) K/uL Braxton # (Auto) 0.6 (0.0-0.8) K/uL Eos # (Auto) 0.0 (0.0-0.7) K/uL Baso # (Auto) 0.0 (0.0-0.2) K/uL Neutrophils % (Manual) 86 H (50-75) % Band Neutrophils % 7 H (0-2) % Lymphocytes % (Manual) 5 L (20-40) % Monocytes % (Manual) 2 (0-10) % Platelet Estimate Decreased L (NORMAL) Large Platelets Present Poikilocytosis (manual Anisocytosis (manual) Slight Sodium 139 (132-148) mmol/L Potassium 4.0 (3.6-5.2) mmol/L Chloride 108 H (98-107) mmol/L Carbon Dioxide 20 L (22-30) mmol/L Anion Gap 15 (10-20) BUN 27 H (7-17) mg/dL Creatinine 3.0 H (0.7-1.2) mg/dL Est GFR ( Amer) 21 Est GFR (Non-Af Amer) 18 POC Glucose (mg/dL) 84 (65-110) mg/dL Random Glucose 75 (65-105) mg/dL Calcium 7.9 L (8.6-10.4) mg/dl Phosphorus 6.6 H (2.5-4.5) mg/dL Magnesium 1.4 L (1.6-2.3) mg/dL Total Bilirubin 0.8 (0.2-1.3) mg/dL AST 69 H D (14-36) U/L ALT 24 (9-52) U/L Alkaline Phosphatase 52 (38-126) U/L Total Protein 4.4 L (6.3-8.3) g/dL Albumin 2.0 L (3.5-5.0) g/dL Globulin 2.3 (2.2-3.9) gm/dL Albumin/Globulin Ratio 0.9 L (1.0-2.1) Random Vancomycin ug/mL 12/24/17 12/24/17 12/24/17 Range/Units 23:29 18:03 18:03 WBC 13.0 H (4.8-10.8) K/uL RBC 2.83 L (3.80-5.20) Mil/uL Hgb 8.0 L (11.0-16.0) g/dL Hct 24.0 L (34.0-47.0) % MCV 85.1 (81.0-99.0) fL MCH 28.4 (27.0-31.0) pg MCHC 33.4 (33.0-37.0) g/dL RDW 16.5 H (11.5-14.5) % Plt Count 99 L D (130-400) K/uL MPV 8.0 (7.2-11.7) fL Neut % (Auto) 89.2 H (50.0-75.0) % Lymph % (Auto) 5.5 L (20.0-40.0) % Braxton % (Auto) 5.1 (0.0-10.0) % Eos % (Auto) 0.1 (0.0-4.0) % Baso % (Auto) 0.1 (0.0-2.0) % Neut # (Auto) 11.6 H (1.8-7.0) K/uL Lymph # (Auto) 0.7 L (1.0-4.3) K/uL Braxton # (Auto) 0.7 (0.0-0.8) K/uL Eos # (Auto) 0.0 (0.0-0.7) K/uL Baso # (Auto) 0.0 (0.0-0.2) K/uL Neutrophils % (Manual) 87 H (50-75) % Band Neutrophils % 5 H (0-2) % Lymphocytes % (Manual) 5 L (20-40) % Monocytes % (Manual) 3 (0-10) % Platelet Estimate Decreased L (NORMAL) Large Platelets Poikilocytosis (manual Slight Anisocytosis (manual) Slight Sodium 137 (132-148) mmol/L Potassium 4.4 (3.6-5.2) mmol/L Chloride 107 (98-107) mmol/L Carbon Dioxide 20 L (22-30) mmol/L Anion Gap 14 (10-20) BUN 24 H (7-17) mg/dL Creatinine 2.5 H (0.7-1.2) mg/dL Est GFR ( Amer) 26 Est GFR (Non-Af Amer) 22 POC Glucose (mg/dL) 104 (65-110) mg/dL Random Glucose 89 (65-105) mg/dL Calcium 8.2 L (8.6-10.4) mg/dl Phosphorus 5.7 H (2.5-4.5) mg/dL Magnesium 1.2 L (1.6-2.3) mg/dL Total Bilirubin 0.7 (0.2-1.3) mg/dL AST 88 H D (14-36) U/L ALT 35 (9-52) U/L Alkaline Phosphatase 56 (38-126) U/L Total Protein 4.5 L (6.3-8.3) g/dL Albumin 2.2 L D (3.5-5.0) g/dL Globulin 2.3 (2.2-3.9) gm/dL Albumin/Globulin Ratio 0.9 L (1.0-2.1) Random Vancomycin ug/mL 12/24/17 12/24/17 12/24/17 Range/Units 15:58 11:23 10:53 WBC (4.8-10.8) K/uL RBC (3.80-5.20) Mil/uL Hgb (11.0-16.0) g/dL Hct (34.0-47.0) % MCV (81.0-99.0) fL MCH (27.0-31.0) pg MCHC (33.0-37.0) g/dL RDW (11.5-14.5) % Plt Count (130-400) K/uL MPV (7.2-11.7) fL Neut % (Auto) (50.0-75.0) % Lymph % (Auto) (20.0-40.0) % Braxton % (Auto) (0.0-10.0) % Eos % (Auto) (0.0-4.0) % Baso % (Auto) (0.0-2.0) % Neut # (Auto) (1.8-7.0) K/uL Lymph # (Auto) (1.0-4.3) K/uL Braxton # (Auto) (0.0-0.8) K/uL Eos # (Auto) (0.0-0.7) K/uL Baso # (Auto) (0.0-0.2) K/uL Neutrophils % (Manual) (50-75) % Band Neutrophils % (0-2) % Lymphocytes % (Manual) (20-40) % Monocytes % (Manual) (0-10) % Platelet Estimate (NORMAL) Large Platelets Poikilocytosis (manual Anisocytosis (manual) Sodium (132-148) mmol/L Potassium (3.6-5.2) mmol/L Chloride (98-107) mmol/L Carbon Dioxide (22-30) mmol/L Anion Gap (10-20) BUN (7-17) mg/dL Creatinine (0.7-1.2) mg/dL Est GFR ( Amer) Est GFR (Non-Af Amer) POC Glucose (mg/dL) 108 107 (65-110) mg/dL Random Glucose (65-105) mg/dL Calcium (8.6-10.4) mg/dl Phosphorus (2.5-4.5) mg/dL Magnesium (1.6-2.3) mg/dL Total Bilirubin (0.2-1.3) mg/dL AST (14-36) U/L ALT (9-52) U/L Alkaline Phosphatase (38-126) U/L Total Protein (6.3-8.3) g/dL Albumin (3.5-5.0) g/dL Globulin (2.2-3.9) gm/dL Albumin/Globulin Ratio (1.0-2.1) Random Vancomycin 11.9 ug/mL Laboratory Results - last 24 hr 12/24/17 12/24/17 12/24/17 10:53 11:23 15:58 WBC RBC Hgb Hct MCV MCH MCHC RDW Plt Count MPV Neut % (Auto) Lymph % (Auto) Braxton % (Auto) Eos % (Auto) Baso % (Auto) Neut # (Auto) Lymph # (Auto) Braxton # (Auto) Eos # (Auto) Baso # (Auto) Neutrophils % (Manual) Band Neutrophils % Lymphocytes % (Manual) Monocytes % (Manual) Platelet Estimate Large Platelets Poikilocytosis (manual Anisocytosis (manual) Sodium Potassium Chloride Carbon Dioxide Anion Gap BUN Creatinine Est GFR ( Amer) Est GFR (Non-Af Amer) POC Glucose (mg/dL) 107 108 Random Glucose Calcium Phosphorus Magnesium Total Bilirubin AST ALT Alkaline Phosphatase Total Protein Albumin Globulin Albumin/Globulin Ratio Random Vancomycin 11.9 12/24/17 12/24/17 12/24/17 18:03 18:03 23:29 WBC 13.0 H RBC 2.83 L Hgb 8.0 L Hct 24.0 L MCV 85.1 MCH 28.4 MCHC 33.4 RDW 16.5 H Plt Count 99 L D MPV 8.0 Neut % (Auto) 89.2 H Lymph % (Auto) 5.5 L Braxton % (Auto) 5.1 Eos % (Auto) 0.1 Baso % (Auto) 0.1 Neut # (Auto) 11.6 H Lymph # (Auto) 0.7 L Braxton # (Auto) 0.7 Eos # (Auto) 0.0 Baso # (Auto) 0.0 Neutrophils % (Manual) 87 H Band Neutrophils % 5 H Lymphocytes % (Manual) 5 L Monocytes % (Manual) 3 Platelet Estimate Decreased L Large Platelets Poikilocytosis (manual Slight Anisocytosis (manual) Slight Sodium 137 Potassium 4.4 Chloride 107 Carbon Dioxide 20 L Anion Gap 14 BUN 24 H Creatinine 2.5 H Est GFR ( Amer) 26 Est GFR (Non-Af Amer) 22 POC Glucose (mg/dL) 104 Random Glucose 89 Calcium 8.2 L Phosphorus 5.7 H Magnesium 1.2 L Total Bilirubin 0.7 AST 88 H D ALT 35 Alkaline Phosphatase 56 Total Protein 4.5 L Albumin 2.2 L D Globulin 2.3 Albumin/Globulin Ratio 0.9 L Random Vancomycin 12/25/17 12/25/17 12/25/17 05:42 06:29 06:29 WBC 10.9 H RBC 2.39 L Hgb 7.0 L Hct 20.4 L MCV 85.6 MCH 29.5 MCHC 34.4 RDW 16.8 H Plt Count 107 L MPV 8.2 Neut % (Auto) 86.5 H Lymph % (Auto) 7.0 L Braxton % (Auto) 5.9 Eos % (Auto) 0.3 Baso % (Auto) 0.3 Neut # (Auto) 9.4 H Lymph # (Auto) 0.8 L Braxton # (Auto) 0.6 Eos # (Auto) 0.0 Baso # (Auto) 0.0 Neutrophils % (Manual) 86 H Band Neutrophils % 7 H Lymphocytes % (Manual) 5 L Monocytes % (Manual) 2 Platelet Estimate Decreased L Large Platelets Present Poikilocytosis (manual Anisocytosis (manual) Slight Sodium 139 Potassium 4.0 Chloride 108 H Carbon Dioxide 20 L Anion Gap 15 BUN 27 H Creatinine 3.0 H Est GFR ( Amer) 21 Est GFR (Non-Af Amer) 18 POC Glucose (mg/dL) 84 Random Glucose 75 Calcium 7.9 L Phosphorus 6.6 H Magnesium 1.4 L Total Bilirubin 0.8 AST 69 H D ALT 24 Alkaline Phosphatase 52 Total Protein 4.4 L Albumin 2.0 L Globulin 2.3 Albumin/Globulin Ratio 0.9 L Random Vancomycin Fingerstick Blood Sugar Results: 84 Critical Care Progress Note - Nutrition Nutrition: Nutrition Category Date Time Status NPO Diet [DIET] Diets 12/22/17 Dinner Active Assessment/Plan - Assessment and Plan (Free Text) Assessment: This is a 37 year old female with PMHx of Asthma, who is now s/p post term induced vaginal delivery on 12/23/17 @ 10am who had hemorrhage s/p DC s /p hysterectomy admitted to the ICU intubated on PRVC 16/ 100/ 400/ 5 with Fentanyl, Versed. She received 5 units PRBCs and 1 FFP prior to arrival to ICU. Fibrinogen 57. Patient found to be in DIC. Massive transfusion protocol initiated 4 units PRBCs, 3 FFPs, 1 PLTs, and total 25 cryoprecipitate. Left IJ TLC was inserted, started on Levophed. Initiated empiric antibiotics. Extubated 12/24/17 8:30. Transfused 1 more PRBC 12/25/17. Continues to remain in renal failure - nephro consulted. Plan: Neuro: - Extubated 12/24 - 8:30 - GCS 15 Cardio: A: Hypovolemic shock -- resolved - LUKAS - negative - F/U ECHO Pulm: - Extubated 12/24 - 8:30 ID: A: SIRS - RESOLVED - Leukocytosis, left shift, bandemia, lactate 2.8 --> 3.0 --> 1.4 - Zosyn (renal dose), Doxy, and discontinued Vanco 2/2 renal function HEAD OF STORE OPERATIONS: A: , Hemorrhage S/P D&C, S/P Hysterectomy in DIC - , unable to achieve hemostasis with Cytotec, Pitocin, Methergine - S/P D&C received Thrombin - continue to hemorrhage - S/P Hysterectomy in DIC, fibrinogen 57 - Massive transfusion protocol initiated 4 units PRBCs, 3 FFPs, 1 PLTs, and total 25 cryoprecipitate - Upper and Lower Extremity dopplers negative for DVT - Will receive an additional 1 unit 12/25/17 Renal: A: ARF - 1.2 --> 1.3 --1.8 -> 2.5 --> 3.0 - DC vanco, avoid any nephrotoxic agents - Nephrology consulted - continue IVF hydration - D5 with Bicarb - Started mucomyst 600mg PO Q12H - Ordered urine lytes - CT abdomen/pelvis - to eval ureters Heme/Onc: A: Acute Anemia 2/2 Hemorrhage - Baseline H/H: 13.4/ 39.6 - Started on Levophed -- OFF pressors 12/24/17 - Ordered hemophilia workup - Will receive an additional 1 unit 12/25/17 - Continue to monitor Prophylaxis - SCDs, VTE c/i due to active hemorrhage - Lines: Left IJ TLC was inserted, a line was removed DW Dr. Juan Jose Emmanuel, Esther Yuan DO, PGY-1 <Trevon Emmanuel - Last Filed: 12/25/17 11:09> CCU Objective - Vital Signs / Intake & Output Vital Signs (Last 4 hours): Vital Signs Temp Pulse Resp BP Pulse Ox 12/25/17 11:01 98.6 F 112 H 18 121/74 12/25/17 10:02 90 14 105/60 100 12/25/17 10:00 97 H 15 100 12/25/17 09:02 101 H 14 105/64 100 12/25/17 09:00 103 H 12 100 12/25/17 08:02 111 H 22 132/77 98 12/25/17 08:00 98.6 F 133 H 15 100 Intake and Output (Last 8hrs): Intake & Output 12/24/17 12/25/17 12/25/17 22:59 06:59 14:59 Intake Total 672.5 637.5 150 Output Total 300 300 0 Balance 372.5 337.5 150 Weight 152 lb 11.2 oz Intake: Intake, IV Amount 612.5 637.5 150 Left Proximal Port 612.5 637.5 150 left medial ivpb 0 Oral 60 Blood Product 0 Apheresis Rbc Cp2d As3 Lr 0 2nd Unit [id number] Output: Urine 300 300 0 Urine, Voided 300 300 0 Emesis 0 0 Other: # Bowel Movements 0 0 0 - Medications Active Medications: Active Medications Generic Name Dose Route Start Last Admin Trade Name Freq PRN Reason Stop Dose Admin Acetaminophen 650 mg 12/22/17 21:38 Tylenol 650 Mg Supp MD Q6 PRN Fever >100.4 F Acetylcysteine 3 ml 12/25/17 11:00 Acetylcysteine 20% PO 12/26/17 22:01 Q12 [facility] Hydromorphone HCl 0.5 mg 12/24/17 10:30 12/25/17 05:44 Dilaudid IVP 0.5 mg Q6H PRN Administration Pain, severe (8-10) Doxycycline Hyclate 100 mg/ 100 mls @ 100 mls/hr 12/23/17 18:00 12/25/17 05: 33 Sodium Chloride IVPB 100 mls/hr Q12H [facility] Administration Protocol Sodium Bicarbonate 150 meq/ 1,150 mls @ 50 mls/hr 12/25/17 09:30 12/25/17 10: 45 Dextrose IV 50 mls/hr .Q23H [facility] Administration Piperacillin Sod/Tazobactam Sod 2.25 gm in 50 mls @ 100 mls/hr 12/25/17 09:30 12/25/17 09:00 Zosyn 2.25 Gm Iv Premix IVPB Not Given Q8H [facility] Protocol - Patient Studies Lab Studies: Microbiology Studies 12/23/17 20:20 Urine Culture - Final Urine No Growth (<1,000 CFU/ML) 12/23/17 18:27 MRSA Culture (Admit) - Final Nose MRSA NOT DETECTED Lab Studies 12/25/17 12/25/17 12/25/17 Range/Units 10:01 06:29 06:29 WBC 10.9 H (4.8-10.8) K/uL RBC 2.39 L (3.80-5.20) Mil/uL Hgb 7.0 L (11.0-16.0) g/dL Hct 20.4 L (34.0-47.0) % MCV 85.6 (81.0-99.0) fL MCH 29.5 (27.0-31.0) pg MCHC 34.4 (33.0-37.0) g/dL RDW 16.8 H (11.5-14.5) % Plt Count 107 L (130-400) K/uL MPV 8.2 (7.2-11.7) fL Neut % (Auto) 86.5 H (50.0-75.0) % Lymph % (Auto) 7.0 L (20.0-40.0) % Braxton % (Auto) 5.9 (0.0-10.0) % Eos % (Auto) 0.3 (0.0-4.0) % Baso % (Auto) 0.3 (0.0-2.0) % Neut # (Auto) 9.4 H (1.8-7.0) K/uL Lymph # (Auto) 0.8 L (1.0-4.3) K/uL Braxton # (Auto) 0.6 (0.0-0.8) K/uL Eos # (Auto) 0.0 (0.0-0.7) K/uL Baso # (Auto) 0.0 (0.0-0.2) K/uL Neutrophils % (Manual) 86 H (50-75) % Band Neutrophils % 7 H (0-2) % Lymphocytes % (Manual) 5 L (20-40) % Monocytes % (Manual) 2 (0-10) % Platelet Estimate Decreased L (NORMAL) Large Platelets Present Poikilocytosis (manual Anisocytosis (manual) Slight Sodium 139 (132-148) mmol/L Potassium 4.0 (3.6-5.2) mmol/L Chloride 108 H (98-107) mmol/L Carbon Dioxide 20 L (22-30) mmol/L Anion Gap 15 (10-20) BUN 27 H (7-17) mg/dL Creatinine 3.0 H (0.7-1.2) mg/dL Est GFR ( Amer) 21 Est GFR (Non-Af Amer) 18 POC Glucose (mg/dL) (65-110) mg/dL Random Glucose 75 (65-105) mg/dL Serum Osmolality 291 (272-300) mosm/kg Calcium 7.9 L (8.6-10.4) mg/dl Phosphorus 6.6 H (2.5-4.5) mg/dL Magnesium 1.4 L (1.6-2.3) mg/dL Total Bilirubin 0.8 (0.2-1.3) mg/dL AST 69 H D (14-36) U/L ALT 24 (9-52) U/L Alkaline Phosphatase 52 (38-126) U/L Total Protein 4.4 L (6.3-8.3) g/dL Albumin 2.0 L (3.5-5.0) g/dL Globulin 2.3 (2.2-3.9) gm/dL Albumin/Globulin Ratio 0.9 L (1.0-2.1) Random Vancomycin ug/mL Blood Type Antibody Screen 12/25/17 12/24/17 12/24/17 Range/Units 05:42 23:29 18:03 WBC (4.8-10.8) K/uL RBC (3.80-5.20) Mil/uL Hgb (11.0-16.0) g/dL Hct (34.0-47.0) % MCV (81.0-99.0) fL MCH (27.0-31.0) pg MCHC (33.0-37.0) g/dL RDW (11.5-14.5) % Plt Count (130-400) K/uL MPV (7.2-11.7) fL Neut % (Auto) (50.0-75.0) % Lymph % (Auto) (20.0-40.0) % Braxton % (Auto) (0.0-10.0) % Eos % (Auto) (0.0-4.0) % Baso % (Auto) (0.0-2.0) % Neut # (Auto) (1.8-7.0) K/uL Lymph # (Auto) (1.0-4.3) K/uL Braxton # (Auto) (0.0-0.8) K/uL Eos # (Auto) (0.0-0.7) K/uL Baso # (Auto) (0.0-0.2) K/uL Neutrophils % (Manual) (50-75) % Band Neutrophils % (0-2) % Lymphocytes % (Manual) (20-40) % Monocytes % (Manual) (0-10) % Platelet Estimate (NORMAL) Large Platelets Poikilocytosis (manual Anisocytosis (manual) Sodium 137 (132-148) mmol/L Potassium 4.4 (3.6-5.2) mmol/L Chloride 107 (98-107) mmol/L Carbon Dioxide 20 L (22-30) mmol/L Anion Gap 14 (10-20) BUN 24 H (7-17) mg/dL Creatinine 2.5 H (0.7-1.2) mg/dL Est GFR ( Amer) 26 Est GFR (Non-Af Amer) 22 POC Glucose (mg/dL) 84 104 (65-110) mg/dL Random Glucose 89 (65-105) mg/dL Serum Osmolality (272-300) mosm/kg Calcium 8.2 L (8.6-10.4) mg/dl Phosphorus 5.7 H (2.5-4.5) mg/dL Magnesium 1.2 L (1.6-2.3) mg/dL Total Bilirubin 0.7 (0.2-1.3) mg/dL AST 88 H D (14-36) U/L ALT 35 (9-52) U/L Alkaline Phosphatase 56 (38-126) U/L Total Protein 4.5 L (6.3-8.3) g/dL Albumin 2.2 L D (3.5-5.0) g/dL Globulin 2.3 (2.2-3.9) gm/dL Albumin/Globulin Ratio 0.9 L (1.0-2.1) Random Vancomycin ug/mL Blood Type Antibody Screen 12/24/17 12/24/17 12/24/17 Range/Units 18:03 15:58 11:23 WBC 13.0 H (4.8-10.8) K/uL RBC 2.83 L (3.80-5.20) Mil/uL Hgb 8.0 L (11.0-16.0) g/dL Hct 24.0 L (34.0-47.0) % MCV 85.1 (81.0-99.0) fL MCH 28.4 (27.0-31.0) pg MCHC 33.4 (33.0-37.0) g/dL RDW 16.5 H (11.5-14.5) % Plt Count 99 L D (130-400) K/uL MPV 8.0 (7.2-11.7) fL Neut % (Auto) 89.2 H (50.0-75.0) % Lymph % (Auto) 5.5 L (20.0-40.0) % Braxton % (Auto) 5.1 (0.0-10.0) % Eos % (Auto) 0.1 (0.0-4.0) % Baso % (Auto) 0.1 (0.0-2.0) % Neut # (Auto) 11.6 H (1.8-7.0) K/uL Lymph # (Auto) 0.7 L (1.0-4.3) K/uL Braxton # (Auto) 0.7 (0.0-0.8) K/uL Eos # (Auto) 0.0 (0.0-0.7) K/uL Baso # (Auto) 0.0 (0.0-0.2) K/uL Neutrophils % (Manual) 87 H (50-75) % Band Neutrophils % 5 H (0-2) % Lymphocytes % (Manual) 5 L (20-40) % Monocytes % (Manual) 3 (0-10) % Platelet Estimate Decreased L (NORMAL) Large Platelets Poikilocytosis (manual Slight Anisocytosis (manual) Slight Sodium (132-148) mmol/L Potassium (3.6-5.2) mmol/L Chloride (98-107) mmol/L Carbon Dioxide (22-30) mmol/L Anion Gap (10-20) BUN (7-17) mg/dL Creatinine (0.7-1.2) mg/dL Est GFR ( Amer) Est GFR (Non-Af Amer) POC Glucose (mg/dL) 108 107 (65-110) mg/dL Random Glucose (65-105) mg/dL Serum Osmolality (272-300) mosm/kg Calcium (8.6-10.4) mg/dl Phosphorus (2.5-4.5) mg/dL Magnesium (1.6-2.3) mg/dL Total Bilirubin (0.2-1.3) mg/dL AST (14-36) U/L ALT (9-52) U/L Alkaline Phosphatase (38-126) U/L Total Protein (6.3-8.3) g/dL Albumin (3.5-5.0) g/dL Globulin (2.2-3.9) gm/dL Albumin/Globulin Ratio (1.0-2.1) Random Vancomycin ug/mL Blood Type Antibody Screen 12/24/17 12/23/17 Range/Units 10:53 11:12 WBC (4.8-10.8) K/uL RBC (3.80-5.20) Mil/uL Hgb (11.0-16.0) g/dL Hct (34.0-47.0) % MCV (81.0-99.0) fL MCH (27.0-31.0) pg MCHC (33.0-37.0) g/dL RDW (11.5-14.5) % Plt Count (130-400) K/uL MPV (7.2-11.7) fL Neut % (Auto) (50.0-75.0) % Lymph % (Auto) (20.0-40.0) % Braxton % (Auto) (0.0-10.0) % Eos % (Auto) (0.0-4.0) % Baso % (Auto) (0.0-2.0) % Neut # (Auto) (1.8-7.0) K/uL Lymph # (Auto) (1.0-4.3) K/uL Braxton # (Auto) (0.0-0.8) K/uL Eos # (Auto) (0.0-0.7) K/uL Baso # (Auto) (0.0-0.2) K/uL Neutrophils % (Manual) (50-75) % Band Neutrophils % (0-2) % Lymphocytes % (Manual) (20-40) % Monocytes % (Manual) (0-10) % Platelet Estimate (NORMAL) Large Platelets Poikilocytosis (manual Anisocytosis (manual) Sodium (132-148) mmol/L Potassium (3.6-5.2) mmol/L Chloride (98-107) mmol/L Carbon Dioxide (22-30) mmol/L Anion Gap (10-20) BUN (7-17) mg/dL Creatinine (0.7-1.2) mg/dL Est GFR ( Amer) Est GFR (Non-Af Amer) POC Glucose (mg/dL) (65-110) mg/dL Random Glucose (65-105) mg/dL Serum Osmolality (272-300) mosm/kg Calcium (8.6-10.4) mg/dl Phosphorus (2.5-4.5) mg/dL Magnesium (1.6-2.3) mg/dL Total Bilirubin (0.2-1.3) mg/dL AST (14-36) U/L ALT (9-52) U/L Alkaline Phosphatase (38-126) U/L Total Protein (6.3-8.3) g/dL Albumin (3.5-5.0) g/dL Globulin (2.2-3.9) gm/dL Albumin/Globulin Ratio (1.0-2.1) Random Vancomycin 11.9 ug/mL Blood Type B POSITIVE Antibody Screen Negative Laboratory Results - last 24 hr 12/23/17 12/24/17 12/24/17 11:12 10:53 11:23 WBC RBC Hgb Hct MCV MCH MCHC RDW Plt Count MPV Neut % (Auto) Lymph % (Auto) Braxton % (Auto) Eos % (Auto) Baso % (Auto) Neut # (Auto) Lymph # (Auto) Braxton # (Auto) Eos # (Auto) Baso # (Auto) Neutrophils % (Manual) Band Neutrophils % Lymphocytes % (Manual) Monocytes % (Manual) Platelet Estimate Large Platelets Poikilocytosis (manual Anisocytosis (manual) Sodium Potassium Chloride Carbon Dioxide Anion Gap BUN Creatinine Est GFR ( Amer) Est GFR (Non-Af Amer) POC Glucose (mg/dL) 107 Random Glucose Serum Osmolality Calcium Phosphorus Magnesium Total Bilirubin AST ALT Alkaline Phosphatase Total Protein Albumin Globulin Albumin/Globulin Ratio Random Vancomycin 11.9 Blood Type B POSITIVE Antibody Screen Negative 12/24/17 12/24/17 12/24/17 15:58 18:03 18:03 WBC 13.0 H RBC 2.83 L Hgb 8.0 L Hct 24.0 L MCV 85.1 MCH 28.4 MCHC 33.4 RDW 16.5 H Plt Count 99 L D MPV 8.0 Neut % (Auto) 89.2 H Lymph % (Auto) 5.5 L Braxton % (Auto) 5.1 Eos % (Auto) 0.1 Baso % (Auto) 0.1 Neut # (Auto) 11.6 H Lymph # (Auto) 0.7 L Braxton # (Auto) 0.7 Eos # (Auto) 0.0 Baso # (Auto) 0.0 Neutrophils % (Manual) 87 H Band Neutrophils % 5 H Lymphocytes % (Manual) 5 L Monocytes % (Manual) 3 Platelet Estimate Decreased L Large Platelets Poikilocytosis (manual Slight Anisocytosis (manual) Slight Sodium 137 Potassium 4.4 Chloride 107 Carbon Dioxide 20 L Anion Gap 14 BUN 24 H Creatinine 2.5 H Est GFR ( Amer) 26 Est GFR (Non-Af Amer) 22 POC Glucose (mg/dL) 108 Random Glucose 89 Serum Osmolality Calcium 8.2 L Phosphorus 5.7 H Magnesium 1.2 L Total Bilirubin 0.7 AST 88 H D ALT 35 Alkaline Phosphatase 56 Total Protein 4.5 L Albumin 2.2 L D Globulin 2.3 Albumin/Globulin Ratio 0.9 L Random Vancomycin Blood Type Antibody Screen 12/24/17 12/25/17 12/25/17 23:29 05:42 06:29 WBC 10.9 H RBC 2.39 L Hgb 7.0 L Hct 20.4 L MCV 85.6 MCH 29.5 MCHC 34.4 RDW 16.8 H Plt Count 107 L MPV 8.2 Neut % (Auto) 86.5 H Lymph % (Auto) 7.0 L Braxton % (Auto) 5.9 Eos % (Auto) 0.3 Baso % (Auto) 0.3 Neut # (Auto) 9.4 H Lymph # (Auto) 0.8 L Braxton # (Auto) 0.6 Eos # (Auto) 0.0 Baso # (Auto) 0.0 Neutrophils % (Manual) 86 H Band Neutrophils % 7 H Lymphocytes % (Manual) 5 L Monocytes % (Manual) 2 Platelet Estimate Decreased L Large Platelets Present Poikilocytosis (manual Anisocytosis (manual) Slight Sodium Potassium Chloride Carbon Dioxide Anion Gap BUN Creatinine Est GFR ( Amer) Est GFR (Non-Af Amer) POC Glucose (mg/dL) 104 84 Random Glucose Serum Osmolality Calcium Phosphorus Magnesium Total Bilirubin AST ALT Alkaline Phosphatase Total Protein Albumin Globulin Albumin/Globulin Ratio Random Vancomycin Blood Type Antibody Screen 12/25/17 12/25/17 06:29 10:01 WBC RBC Hgb Hct MCV MCH MCHC RDW Plt Count MPV Neut % (Auto) Lymph % (Auto) Braxton % (Auto) Eos % (Auto) Baso % (Auto) Neut # (Auto) Lymph # (Auto) Braxton # (Auto) Eos # (Auto) Baso # (Auto) Neutrophils % (Manual) Band Neutrophils % Lymphocytes % (Manual) Monocytes % (Manual) Platelet Estimate Large Platelets Poikilocytosis (manual Anisocytosis (manual) Sodium 139 Potassium 4.0 Chloride 108 H Carbon Dioxide 20 L Anion Gap 15 BUN 27 H Creatinine 3.0 H Est GFR ( Amer) 21 Est GFR (Non-Af Amer) 18 POC Glucose (mg/dL) Random Glucose 75 Serum Osmolality 291 Calcium 7.9 L Phosphorus 6.6 H Magnesium 1.4 L Total Bilirubin 0.8 AST 69 H D ALT 24 Alkaline Phosphatase 52 Total Protein 4.4 L Albumin 2.0 L Globulin 2.3 Albumin/Globulin Ratio 0.9 L Random Vancomycin Blood Type Antibody Screen Critical Care Progress Note - Nutrition Nutrition: Nutrition Category Date Time Status NPO Diet [DIET] Diets 12/22/17 Dinner Active Assessment/Plan - Assessment and Plan (Free Text) Plan: Patient seen and examined at bedside with above resident. Above resident documents my clinical findings and managemnt. Patient's WBC decreasing. Patient awake, alert, sitting up, not on pressors. -vitals stable -clinically fluid overloaded -KAMI: avoid nephrotoxic drugs, continue IVF, keep HCO3 near 18, ua/urine lytes and CT abd.pelvis, nephrology eval -PAtient did not have a BM or flatus: NPO except ice chips and medicaitons -thrombocytopenis improving -will transfue 1 unit of blood. -COntinue to monitor patient -d/c lee, keep ceontral line as poor iv access - Date & Time Date: 12/25/17 Time: 11:08
--- NOTE | 2017-12-25 11:11 | CP.PCM.CON ---
History of Present Illness - History of Present Illness History of Present Illness: renal consult for sandor 37 yo female, no pmh, admitted for scheduled induciton on 12/23/17. Course complicated by post hemorrhage, shock, DIC, need for intubation and pressors. S/p hysterectomy and massive transfusion protocol. Pt now extubated,off pressors. Noted to have normal creatinine with rise, associated with oliguria. Pt notes excellent u/o this morning. No nephrotoxic agents. Review of Systems - Constitutional Constitutional: absent: Fever, Frequent Falls - EENT Eyes: absent: Blurred Vision, Change in Vision Nose/Mouth/Throat: absent: Nasal Congestion, Nasal Discharge - Cardiovascular Cardiovascular: Leg Edema. absent: Chest Pain - Respiratory Respiratory: absent: Cough, Dyspnea - Gastrointestinal Gastrointestinal: Abdominal Pain. absent: Diarrhea - Genitourinary Genitourinary: absent: Difficulty Urinating, Dysuria - Neurological Neurological: absent: Headaches, Memory Loss Past Patient History - CARDIAC Hx Cardiac Disorders: No Hx Hypertension: No - PSYCHIATRIC Hx Depression: No Meds Allergies/Adverse Reactions: Allergies Allergy/AdvReac Type Severity Reaction Status Date / Time ibuprofen Allergy Severe SHORTNESS Verified 12/22/17 22:10 OF BREATH mefenamic acid Allergy Severe SHORTNESS Verified 12/22/17 22:10 OF BREATH - Medications Medications: Current Medications Acetaminophen (Tylenol 650 Mg Supp) 650 mg [place] Q6 PRN PRN Reason: Fever >100.4 F Acetylcysteine (Acetylcysteine 20%) 3 ml PO Q12 [facility] Stop: 12/26/17 22:01 Hydromorphone HCl (Dilaudid) 0.5 mg IVP Q6H PRN PRN Reason: Pain, severe (8-10) Last Admin: 12/25/17 05:44 Dose: 0.5 mg Doxycycline Hyclate 100 mg/ (Sodium Chloride) 100 mls @ 100 mls/hr IVPB Q12H [facility] PRN Reason: Protocol Last Admin: 12/25/17 05:33 Dose: 100 mls/hr Sodium Bicarbonate 150 meq/ (Dextrose) 1,150 mls @ 50 mls/hr IV .Q23H [facility] Last Admin: 12/25/17 10:45 Dose: 50 mls/hr Piperacillin Sod/Tazobactam Sod (Zosyn 2.25 Gm Iv Premix) 2.25 gm in 50 mls @ 100 mls/hr IVPB Q8H [facility] PRN Reason: Protocol Last Admin: 12/25/17 09:00 Dose: Not Given Physical Exam - Constitutional Appears: Non-toxic, No Acute Distress - Head Exam Head Exam: ATRAUMATIC, NORMAL INSPECTION - Eye Exam Eye Exam: EOMI, Normal appearance - ENT Exam ENT Exam: Mucous Membranes Moist - Neck Exam Neck exam: Positive for: Full Rom. Negative for: Lymphadenopathy - Respiratory Exam Respiratory Exam: Clear to Auscultation Bilateral. absent: Accessory Muscle Use - Cardiovascular Exam Cardiovascular Exam: REGULAR RHYTHM. absent: Rubs - GI/Abdominal Exam GI & Abdominal Exam: Distended, Tenderness - Extremities Exam Extremities exam: Positive for: pedal edema - Neurological Exam Neurological exam: Alert, Oriented x3 Results - Vital Signs Recent Vital Signs: Last Vital Signs Temp 98.6 F 12/25/17 11:01 Pulse 112 H 12/25/17 11:01 Resp 18 12/25/17 11:01 BP 121/74 12/25/17 11:01 Pulse Ox 100 12/25/17 10:02 - Labs Result Diagrams: 12/25/17 06:29 12/25/17 06:29 Labs: Laboratory Results - last 24 hr 12/23/17 12/24/17 12/24/17 11:12 10:53 11:23 WBC RBC Hgb Hct MCV MCH MCHC RDW Plt Count MPV Neut % (Auto) Lymph % (Auto) [place] % (Auto) Eos % (Auto) Baso % (Auto) Neut # (Auto) Lymph # (Auto) [place] # (Auto) Eos # (Auto) Baso # (Auto) Neutrophils % (Manual) Band Neutrophils % Lymphocytes % (Manual) Monocytes % (Manual) Platelet Estimate Large Platelets Poikilocytosis (manual Anisocytosis (manual) Sodium Potassium Chloride Carbon Dioxide Anion Gap BUN Creatinine Est GFR ( Amer) Est GFR (Non-Af Amer) POC Glucose (mg/dL) 107 Random Glucose Serum Osmolality Calcium Phosphorus Magnesium Total Bilirubin AST ALT Alkaline Phosphatase Total Protein Albumin Globulin Albumin/Globulin Ratio Random Vancomycin 11.9 Blood Type B POSITIVE Antibody Screen Negative 12/24/17 12/24/17 12/24/17 15:58 18:03 18:03 WBC 13.0 H RBC 2.83 L Hgb 8.0 L Hct 24.0 L MCV 85.1 MCH 28.4 MCHC 33.4 RDW 16.5 H Plt Count 99 L D MPV 8.0 Neut % (Auto) 89.2 H Lymph % (Auto) 5.5 L [place] % (Auto) 5.1 Eos % (Auto) 0.1 Baso % (Auto) 0.1 Neut # (Auto) 11.6 H Lymph # (Auto) 0.7 L [place] # (Auto) 0.7 Eos # (Auto) 0.0 Baso # (Auto) 0.0 Neutrophils % (Manual) 87 H Band Neutrophils % 5 H Lymphocytes % (Manual) 5 L Monocytes % (Manual) 3 Platelet Estimate Decreased L Large Platelets Poikilocytosis (manual Slight Anisocytosis (manual) Slight Sodium 137 Potassium 4.4 Chloride 107 Carbon Dioxide 20 L Anion Gap 14 BUN 24 H Creatinine 2.5 H Est GFR ( Amer) 26 Est GFR (Non-Af Amer) 22 POC Glucose (mg/dL) 108 Random Glucose 89 Serum Osmolality Calcium 8.2 L Phosphorus 5.7 H Magnesium 1.2 L Total Bilirubin 0.7 AST 88 H D ALT 35 Alkaline Phosphatase 56 Total Protein 4.5 L Albumin 2.2 L D Globulin 2.3 Albumin/Globulin Ratio 0.9 L Random Vancomycin Blood Type Antibody Screen 12/24/17 12/25/17 12/25/17 23:29 05:42 06:29 WBC 10.9 H RBC 2.39 L Hgb 7.0 L Hct 20.4 L MCV 85.6 MCH 29.5 MCHC 34.4 RDW 16.8 H Plt Count 107 L MPV 8.2 Neut % (Auto) 86.5 H Lymph % (Auto) 7.0 L [place] % (Auto) 5.9 Eos % (Auto) 0.3 Baso % (Auto) 0.3 Neut # (Auto) 9.4 H Lymph # (Auto) 0.8 L [place] # (Auto) 0.6 Eos # (Auto) 0.0 Baso # (Auto) 0.0 Neutrophils % (Manual) 86 H Band Neutrophils % 7 H Lymphocytes % (Manual) 5 L Monocytes % (Manual) 2 Platelet Estimate Decreased L Large Platelets Present Poikilocytosis (manual Anisocytosis (manual) Slight Sodium Potassium Chloride Carbon Dioxide Anion Gap BUN Creatinine Est GFR ( Amer) Est GFR (Non-Af Amer) POC Glucose (mg/dL) 104 84 Random Glucose Serum Osmolality Calcium Phosphorus Magnesium Total Bilirubin AST ALT Alkaline Phosphatase Total Protein Albumin Globulin Albumin/Globulin Ratio Random Vancomycin Blood Type Antibody Screen 12/25/17 12/25/17 06:29 10:01 WBC RBC Hgb Hct MCV MCH MCHC RDW Plt Count MPV Neut % (Auto) Lymph % (Auto) [place] % (Auto) Eos % (Auto) Baso % (Auto) Neut # (Auto) Lymph # (Auto) [place] # (Auto) Eos # (Auto) Baso # (Auto) Neutrophils % (Manual) Band Neutrophils % Lymphocytes % (Manual) Monocytes % (Manual) Platelet Estimate Large Platelets Poikilocytosis (manual Anisocytosis (manual) Sodium 139 Potassium 4.0 Chloride 108 H Carbon Dioxide 20 L Anion Gap 15 BUN 27 H Creatinine 3.0 H Est GFR ( Amer) 21 Est GFR (Non-Af Amer) 18 POC Glucose (mg/dL) Random Glucose 75 Serum Osmolality 291 Calcium 7.9 L Phosphorus 6.6 H Magnesium 1.4 L Total Bilirubin 0.8 AST 69 H D ALT 24 Alkaline Phosphatase 52 Total Protein 4.4 L Albumin 2.0 L Globulin 2.3 Albumin/Globulin Ratio 0.9 L Random Vancomycin Blood Type Antibody Screen Assessment & Plan - Assessment and Plan (Free Text) Assessment: sandor in setting of shock due to hemorrhage improved u/o to check urine Na and electrolytes q12 if edematous, can try small doses of lasix as well
[2017-12-25] MEDS: Acetylcysteine 20% Inhal Soln (4ml) PO SCH ×2 (11:16→22:26)
--- NOTE | 2017-12-25 12:00 | CARD ---
APPROVED REPORT EKG Measurement Heart [id number] <Conclusion> Normal sinus rhythm Low voltage QRS Borderline ECG
--- NOTE | 2017-12-25 12:28 | CARD ---
APPROVED REPORT EXAM: Two-dimensional and M-mode echocardiogram with Doppler and color Doppler. INDICATION Pulmonary Embolism Thrombus 2D DIMENSIONS IVSd0.8 (0.7-1.1cm)LVDd3.6 (3.9-5.9cm) PWd0.9 (0.7-1.1cm)LVDs2.2 (2.5-4.0cm) FS (%) 40.5 %LVEF (%)65.0 (>50%) M-Mode DIMENSIONS Left Atrium (MM)2.75 (2.5-4.0cm)IVSd0.99 (0.7-1.1cm) Aortic Root3.15 (2.2-3.7cm)LVDd3.91 (4.0-5.6cm) Aortic Cusp Exc.2.09 (1.5-2.0cm)PWd0.61 (0.7-1.1cm) FS (%) 36 %LVDs2.50 (2.0-3.8cm) LVEF (%)66 (>50%) Aortic Valve AoV Peak Hjvjyiom255.7cm/[place]ak[place] Peak GR.10mmHg Mitral Valve MV E Kosssjwe31.4cm/sMV A Jwcidyuw26.3cm/sE/A ratio1.1 TDI E/Lateral E'0.0E/Medial E'0.0 Tricuspid Valve TR Peak Uarltzma960sb/sTR Peak Gr.57yyAdYLRT12mcFp LEFT VENTRICLE The left ventricle is normal size. There is normal left ventricular wall thickness. The Ejection Fraction is 60-65%. There is normal LV segmental wall motion. The left ventricular diastolic function is normal. RIGHT VENTRICLE The right ventricle is normal size. The right ventricular systolic function is normal. ATRIA The left atrium size is normal. ra not well seen but appears normal. AORTIC VALVE The aortic valve is normal in structure. No aortic regurgitation is present. MITRAL VALVE The mitral valve is normal in structure. Mitral regurgitation is mild. TRICUSPID VALVE The tricuspid valve is normal in structure. There is mild tricuspid regurgitation. Right ventricular systolic pressure is estimated at 32 mmHg. There is no pulmonary hypertension. PULMONIC VALVE The pulmonary valve is normal in structure. GREAT VESSELS The aortic root is normal in size. The IVC is normal in size and collapses >50% with inspiration. PERICARDIAL EFFUSION trivial posterior pericardial effusion seen. <Conclusion> poor apical window. The left ventricle is normal size. The Ejection Fraction is 60-65%. The left ventricular diastolic function is normal. Mitral regurgitation is mild. There is mild tricuspid regurgitation. Right ventricular systolic pressure is estimated at 32 mmHg. There is no pulmonary hypertension. trivial posterior pericardial effusion seen.
--- NOTE | 2017-12-25 12:35 | CT ---
PROCEDURE: CT Abdomen and Pelvis without intravenous contrast HISTORY: Decreasing renal function, eval ureters COMPARISON: None. TECHNIQUE: Axial and reformatted coronal and sagittal CT images of the abdomen and pelvis were obtained without IV or oral contrast administration.. Contrast dose: 0 Radiation dose: Total exam DLP = 490.2 mGy-cm. This CT exam was performed using one or more of the following dose reduction techniques: Automated exposure control, adjustment of the mA and/or kV according to patient size, and/or use of iterative reconstruction technique. FINDINGS: LOWER THORAX: Unremarkable. LIVER: Unremarkable. No gross lesion or ductal dilatation. GALLBLADDER AND BILE DUCTS: There is either a stone or sludge ball in the gallbladder. The gallbladder is distended. No definite CT dense of cholecystitis. PANCREAS: Unremarkable. No gross lesion or ductal dilatation. SPLEEN: Unremarkable. ADRENALS: Unremarkable. No mass. KIDNEYS AND URETERS: There is no evidence of significant hydronephrosis. The right kidney is larger than the left. There is heterogeneous slightly high attenuation lesion at the midpole right kidney measures 2.5 centimeter. Further assessment by ultrasound is suggested. VASCULATURE: Unremarkable. No aortic aneurysm. BOWEL: The small bowel loops are mildly dilated. No evidence of high-grade bowel obstruction. APPENDIX: No evidence of appendicitis. PERITONEUM: Unremarkable. No free fluid. No free air. LYMPH NODES: Unremarkable. No enlarged lymph nodes. BLADDER: There is a punctate air seen in the bladder. REPRODUCTIVE: The uterus is heterogeneous and mildly enlarged. BONES: No acute fracture. OTHER FINDINGS: None. IMPRESSION: No definite evidence of significant hydronephrosis. The assessment of the ureter is somewhat limited in this study. 2.5 millimeter heterogeneous slightly high attenuation lesion exophytic from the midpole of the right kidney. Further assessment by ultrasound is recommended. Gallstones or gallbladder sludge noted in the distended gallbladder. No definite evidence of acute cholecystitis. Ultrasound can be helpful for further evaluation if clinically warranted. Mildly dilated small bowel loops without evidence of bowel obstruction.
[2017-12-25 13:00] LABS: SQUAMOUS EPITHIAL < 1 /hpf (0-5); URINE BILIRUBIN NEGATIVE (NEGATIVE); URINE BLOOD 2+ (NEGATIVE); URINE CLARITY Clear (Clear); URINE COLOR Straw (YELLOW); URINE GLUCOSE (UA) NORMAL (Normal); URINE LEUKOCYTE ESTERASE NEG Leu/uL (Negative); URINE PROTEIN NEGATIVE (NEGATIVE); URINE UROBILINOGEN NORMAL mg/dL (0.2-1.0)
[2017-12-25] MEDS: Sodium Bicarbonate 8.4% 150 MEQ in Dextrose 5% In Water 1,000 ML IV SCH (13:31)
[2017-12-25 13:43] LABS: CREATININE, RANDOM URINE 41.7 mg/dL
--- NOTE | 2017-12-25 14:39 | RAD ---
HISTORY: post hysterectomy COMPARISON: Comparison is made with 12/23/2017 FINDINGS: BOWEL: Mildly dilated small and large bowel loops noted. Postsurgical changes seen at the midline in the lower abdomen and pelvis consistent with the patient's history of recent hysterectomy BONES: Normal. OTHER FINDINGS: Interval removal of the previously seen pelvic radio opacities/possible foreign bodies. There are is linear shaped structure overlying the lower pelvis IMPRESSION: Postsurgical changes as described above. Reticular/linear shape structure overlying the pelvis.
--- NOTE | 2017-12-25 16:42 | CP.PCM.CON ---
History of Present Illness - History of Present Illness History of Present Illness: 37 y/o F POD 2 from emergent hysterectomy performed after life threatening hypotension/persistent hemorrhage from uterine atony and laceration. Refer to anesthesia intraoperative record. Patient improving, extubated, off pressors, good UOP, ambulating. Denies chest pain, shortness of breath, denies any other symptoms including sensory or motor deficits, only complains of mild surgical site pain. Past Patient History - CARDIAC Hx Cardiac Disorders: No Hx Hypertension: No - PSYCHIATRIC Hx Depression: No Meds Allergies/Adverse Reactions: Allergies Allergy/AdvReac Type Severity Reaction Status Date / Time ibuprofen Allergy Severe SHORTNESS Verified 12/22/17 22:10 OF BREATH mefenamic acid Allergy Severe SHORTNESS Verified 12/22/17 22:10 OF BREATH - Medications Medications: Current Medications Acetaminophen (Tylenol 650 Mg Supp) 650 mg [place] Q6 PRN PRN Reason: Fever >100.4 F Acetylcysteine (Acetylcysteine 20%) 3 ml PO Q12 [facility] Stop: 12/26/17 22:01 Last Admin: 12/25/17 11:16 Dose: 3 ml Hydromorphone HCl (Dilaudid) 0.5 mg IVP Q6H PRN PRN Reason: Pain, severe (8-10) Last Admin: 12/25/17 11:51 Dose: 0.5 mg Doxycycline Hyclate 100 mg/ (Sodium Chloride) 100 mls @ 100 mls/hr IVPB Q12H [facility]YE PRN Reason: Protocol Last Admin: 12/25/17 05:33 Dose: 100 mls/hr Piperacillin Sod/Tazobactam Sod (Zosyn 2.25 Gm Iv Premix) 2.25 gm in 50 mls @ 100 mls/hr IVPB Q8H [facility] PRN Reason: Protocol Last Admin: 12/25/17 16:35 Dose: 100 mls/hr Sodium Bicarbonate 150 meq/ (Dextrose) 1,150 mls @ 75 mls/hr IV .[id number] [facility] Last Admin: 12/25/17 13:31 Dose: Not Given Physical Exam - Constitutional Appears: Well - Respiratory Exam Respiratory Exam: Clear to Auscultation Bilateral - Cardiovascular Exam Cardiovascular Exam: REGULAR RHYTHM, +S1, +S2 - Back Exam Additional comments: warm, well perfused all extremities - Neurological Exam Neurological exam: Alert, Oriented x3, Reflexes Normal Additional comments: strength 5/5 all muscle groups, sensory intact - Psychiatric Exam Psychiatric exam: Normal Affect, Normal Mood Results - Vital Signs Recent Vital Signs: Last Vital Signs Temp 98.2 F 12/25/17 16:00 Pulse 90 12/25/17 16:07 Resp 16 12/25/17 16:07 BP 130/75 12/25/17 16:07 Pulse Ox 99 12/25/17 16:07 - Labs Result Diagrams: 12/25/17 06:29 12/25/17 06:29 Labs: Laboratory Results - last 24 hr 12/23/17 12/24/17 12/24/17 11:12 18:03 18:03 WBC 13.0 H RBC 2.83 L Hgb 8.0 L Hct 24.0 L MCV 85.1 MCH 28.4 MCHC 33.4 RDW 16.5 H Plt Count 99 L D MPV 8.0 Neut % (Auto) 89.2 H Lymph % (Auto) 5.5 L [place] % (Auto) 5.1 Eos % (Auto) 0.1 Baso % (Auto) 0.1 Neut # (Auto) 11.6 H Lymph # (Auto) 0.7 L [place] # (Auto) 0.7 Eos # (Auto) 0.0 Baso # (Auto) 0.0 Neutrophils % (Manual) 87 H Band Neutrophils % 5 H Lymphocytes % (Manual) 5 L Monocytes % (Manual) 3 Platelet Estimate Decreased L Large Platelets Poikilocytosis (manual Slight Anisocytosis (manual) Slight Sodium 137 Potassium 4.4 Chloride 107 Carbon Dioxide 20 L Anion Gap 14 BUN 24 H Creatinine 2.5 H Est GFR ( Amer) 26 Est GFR (Non-Af Amer) 22 POC Glucose (mg/dL) Random Glucose 89 Serum Osmolality Calcium 8.2 L Phosphorus 5.7 H Magnesium 1.2 L Total Bilirubin 0.7 AST 88 H D ALT 35 Alkaline Phosphatase 56 Total Protein 4.5 L Albumin 2.2 L D Globulin 2.3 Albumin/Globulin Ratio 0.9 L Urine Color Urine Clarity Urine pH Ur Specific [place] Urine Protein Urine Glucose (UA) Urine Ketones Urine Blood Urine Nitrate Urine Bilirubin Urine Urobilinogen Ur Leukocyte Esterase Urine WBC (Auto) Urine RBC (Auto) Ur Squamous Epith Cells Urine Osmolality Ur Random Creatinine Ur Random Sodium Blood Type B POSITIVE Antibody Screen Negative 12/24/17 12/25/17 12/25/17 23:29 05:42 06:29 WBC 10.9 H RBC 2.39 L Hgb 7.0 L Hct 20.4 L MCV 85.6 MCH 29.5 MCHC 34.4 RDW 16.8 H Plt Count 107 L MPV 8.2 Neut % (Auto) 86.5 H Lymph % (Auto) 7.0 L [place] % (Auto) 5.9 Eos % (Auto) 0.3 Baso % (Auto) 0.3 Neut # (Auto) 9.4 H Lymph # (Auto) 0.8 L [place] # (Auto) 0.6 Eos # (Auto) 0.0 Baso # (Auto) 0.0 Neutrophils % (Manual) 86 H Band Neutrophils % 7 H Lymphocytes % (Manual) 5 L Monocytes % (Manual) 2 Platelet Estimate Decreased L Large Platelets Present Poikilocytosis (manual Anisocytosis (manual) Slight Sodium Potassium Chloride Carbon Dioxide Anion Gap BUN Creatinine Est GFR ( Amer) Est GFR (Non-Af Amer) POC Glucose (mg/dL) 104 84 Random Glucose Serum Osmolality Calcium Phosphorus Magnesium Total Bilirubin AST ALT Alkaline Phosphatase Total Protein Albumin Globulin Albumin/Globulin Ratio Urine Color Urine Clarity Urine pH Ur Specific [place] Urine Protein Urine Glucose (UA) Urine Ketones Urine Blood Urine Nitrate Urine Bilirubin Urine Urobilinogen Ur Leukocyte Esterase Urine WBC (Auto) Urine RBC (Auto) Ur Squamous Epith Cells Urine Osmolality Ur Random Creatinine Ur Random Sodium Blood Type Antibody Screen 12/25/17 12/25/17 12/25/17 06:29 10:01 11:18 WBC RBC Hgb Hct MCV MCH MCHC RDW Plt Count MPV Neut % (Auto) Lymph % (Auto) [place] % (Auto) Eos % (Auto) Baso % (Auto) Neut # (Auto) Lymph # (Auto) [place] # (Auto) Eos # (Auto) Baso # (Auto) Neutrophils % (Manual) Band Neutrophils % Lymphocytes % (Manual) Monocytes % (Manual) Platelet Estimate Large Platelets Poikilocytosis (manual Anisocytosis (manual) Sodium 139 Potassium 4.0 Chloride 108 H Carbon Dioxide 20 L Anion Gap 15 BUN 27 H Creatinine 3.0 H Est GFR ( Amer) 21 Est GFR (Non-Af Amer) 18 POC Glucose (mg/dL) 172 H Random Glucose 75 Serum Osmolality 291 Calcium 7.9 L Phosphorus 6.6 H Magnesium 1.4 L Total Bilirubin 0.8 AST 69 H D ALT 24 Alkaline Phosphatase 52 Total Protein 4.4 L Albumin 2.0 L Globulin 2.3 Albumin/Globulin Ratio 0.9 L Urine Color Urine Clarity Urine pH Ur Specific [place] Urine Protein Urine Glucose (UA) Urine Ketones Urine Blood Urine Nitrate Urine Bilirubin Urine Urobilinogen Ur Leukocyte Esterase Urine WBC (Auto) Urine RBC (Auto) Ur Squamous Epith Cells Urine Osmolality Ur Random Creatinine Ur Random Sodium Blood Type Antibody Screen 12/25/17 12/25/17 12:44 13:21 WBC RBC Hgb Hct MCV MCH MCHC RDW Plt Count MPV Neut % (Auto) Lymph % (Auto) [place] % (Auto) Eos % (Auto) Baso % (Auto) Neut # (Auto) Lymph # (Auto) [place] # (Auto) Eos # (Auto) Baso # (Auto) Neutrophils % (Manual) Band Neutrophils % Lymphocytes % (Manual) Monocytes % (Manual) Platelet Estimate Large Platelets Poikilocytosis (manual Anisocytosis (manual) Sodium Potassium Chloride Carbon Dioxide Anion Gap BUN Creatinine Est GFR ( Amer) Est GFR (Non-Af Amer) POC Glucose (mg/dL) Random Glucose Serum Osmolality Calcium Phosphorus Magnesium Total Bilirubin AST ALT Alkaline Phosphatase Total Protein Albumin Globulin Albumin/Globulin Ratio Urine Color Straw Urine Clarity Clear Urine pH 5.0 Ur Specific [place] 1.009 Urine Protein Negative Urine Glucose (UA) Normal Urine Ketones Negative Urine Blood 2+ H Urine Nitrate Negative Urine Bilirubin Negative Urine Urobilinogen Normal Ur Leukocyte Esterase Neg Urine WBC (Auto) 4 Urine RBC (Auto) 14 H Ur Squamous Epith Cells < 1 Urine Osmolality 290 L Ur Random Creatinine 41.7 Ur Random Sodium 87 Blood Type Antibody Screen Assessment & Plan - Assessment and Plan (Free Text) Assessment: Platelets greater than 100 and trending up. Coags normal. -now safe to remove epidural, (removed 11am) -will continue to perform serial neuro exams to evaluate for epidural hematoma. patient ambulating. motor 5/5 all muscle groups, sensory intact, not ttp/no back pain or redness or swelling at epidural site. -will continue to follow
--- NOTE | 2017-12-25 22:20 | CP.PCM.PN ---
Subjective - Date & Time of Evaluation Date of Evaluation: 12/25/17 Time of Evaluation: 21:35 - Subjective Subjective: Pt seen and examined and reprots pian contolled with pain medication. Pt ambauting, +Lee, no fever, chills, nauses, vomiting, not passing flatus, no vaginal bleeding Pt receving blodo transsion Pt with [id number] creatine 3 s/p CT scan Objective - Vital Signs/Intake and Output Vital Signs (last 24 hours): Temp Pulse Resp BP Pulse Ox 98.3 F 90 13 120/73 100 12/25/17 20:00 12/25/17 20:08 12/25/17 20:08 12/25/17 20:08 12/25/17 20:08 Intake and Output: 12/25/17 12/26/17 18:59 06:59 Intake Total 1954 150 Output Total 1000 200 Balance 954 -50 - Medications Medications: Current Medications Acetaminophen (Tylenol 650 Mg Supp) 650 mg [place] Q6 PRN PRN Reason: Fever >100.4 F Acetylcysteine (Acetylcysteine 20%) 3 ml PO Q12 [facility] Stop: 12/26/17 22:01 Last Admin: 12/25/17 11:16 Dose: 3 ml Hydromorphone HCl (Dilaudid) 0.5 mg IVP Q6H PRN PRN Reason: Pain, severe (8-10) Last Admin: 12/25/17 18:25 Dose: 0.5 mg Doxycycline Hyclate 100 mg/ (Sodium Chloride) 100 mls @ 100 mls/hr IVPB Q12H [facility] PRN Reason: Protocol Last Admin: 12/25/17 17:07 Dose: 100 mls/hr Piperacillin Sod/Tazobactam Sod (Zosyn 2.25 Gm Iv Premix) 2.25 gm in 50 mls @ 100 mls/hr IVPB Q8H [facility] PRN Reason: Protocol Last Admin: 12/25/17 16:35 Dose: 100 mls/hr Sodium Bicarbonate 150 meq/ (Dextrose) 1,150 mls @ 75 mls/hr IV .[id number] [facility] Last Admin: 12/25/17 13:31 Dose: Not Given Simethicone (Mylicon Chew Tab) 80 mg PO Q8 [facility] - Labs Labs: 12/25/17 06:29 12/25/17 06:29 PT 12.5 SECONDS (9.7-12.2) H 12/23/17 23:22 INR 1.1 12/23/17 23:22 APTT 31 SECONDS (21-34) 12/23/17 23:22 - Constitutional Appears: Well, Non-toxic - Head Exam Head Exam: ATRAUMATIC, NORMAL INSPECTION - Eye Exam Eye Exam: EOMI Pupil Exam: PERRL - ENT Exam ENT Exam: Mucous Membranes Moist - Neck Exam Neck Exam: Full ROM - Respiratory Exam Respiratory Exam: Clear to Ausculation Bilateral, NORMAL BREATHING PATTERN - Cardiovascular Exam Cardiovascular Exam: +S1, +S2 - GI/Abdominal Exam GI & Abdominal Exam: Soft Additional comments: NT/ND no distended , no guarding, no reound tendner, no rigidty Incsion C/D/I arnoldo intact VE: minla lcoha, non ful smelling, episitstomy site c/d/i healingw ell - Back Exam Back Exam: NORMAL INSPECTION. absent: CVA tenderness (L), CVA tenderness (R), Full ROM, muscle spasm, paraspinal tenderness, rash noted, tenderness, vertebral tenderness - Neurological Exam Neurological Exam: Alert, Awake - Psychiatric Exam Psychiatric exam: Normal Affect, Normal Mood - Skin Skin Exam: Dry, Intact Additional comments: negative trevor's sign Assessment and Plan (1) Uterine atony Assessment & Plan: s/p hysterectomy POD # 2 -Pain Management -Bowel regimen: simethicion qw 8, consider milk of mageniia -encourage amabtion / phyiscal therapy with assistance -Elevated creatine: nephrolgoy consult appreciated, IVH, strict INc/sout, lee , s/p CT Scan -AM Labs -Blood loss anemia- blood transfusion, additional 1 unit prbc Status: Acute
[2017-12-26] MEDS: HYDROmorphone 0.5 mg/0.5 ml ISec IVP PRN ×4 (00:13→19:21)
[2017-12-26] MEDS: Piperacill/Tazo 2.25gm in Dex 2.25 GM/50 ML BAG IVPB SCH ×3 (01:13→16:46)
[2017-12-26] MEDS: Sodium Bicarbonate 8.4% 150 MEQ in Dextrose 5% In Water 1,000 ML IV SCH ×2 (01:14→04:29)
[2017-12-26] MEDS: Simethicone 80 mg Chewtab PO SCH ×3 (05:27→21:10)
[2017-12-26 06:16] LABS: BASO # 0.1 K/uL (0.0-0.2); BASO % 0.7 % (0.0-2.0); EOS # 0.1 K/uL (0.0-0.7); EOS % 0.9 % (0.0-4.0); HEMOGLOBIN 7.9 g/dL (11.0-16.0); LYMPH # 0.9 K/uL (1.0-4.3); LYMPH % 8.5 % (20.0-40.0); MEAN CORPUSCULAR HEMOGLOBIN 29.5 pg (27.0-31.0); MEAN CORPUSCULAR HGB CONC 34.7 g/dL (33.0-37.0); MEAN PLATELET VOLUME 7.9 fL (7.2-11.7); MONO # 0.5 K/uL (0.0-0.8); MONO % 4.5 % (0.0-10.0); NEUT # 8.8 K/uL (1.8-7.0); NEUT % 85.4 % (50.0-75.0); PLATELET COUNT 142 K/uL (130-400); RBC 2.69 Mil/uL (3.80-5.20); RED CELL DISTRIBUTION WIDTH 15.8 % (11.5-14.5); WHITE BLOOD COUNT 10.3 K/uL (4.8-10.8)
[2017-12-26 06:38] LABS: ALBUMIN 2.4 g/dL (3.5-5.0); CALCIUM 7.5 mg/dl (8.6-10.4)
[2017-12-26] MEDS ORDERED: Potassium Chloride 20 mEq/15 ml LIQ UD PO ONE (07:00)
[2017-12-26 08:42] LABS: BANDS 1 % (0-2); LYMPHOCYTE 12 % (20-40); MONOCYTE 4 % (0-10); NEUTROPHIL 83 % (50-75); TOTAL CELLS COUNTED 100
[2017-12-26 08:43] LABS: PLATELET ESTIMATE NORMAL (NORMAL)
[2017-12-26 08:44] LABS: ANISOCYTOSIS SLIGHT
[2017-12-26 08:45] LABS: LARGE PLATELETS PRESENT
[2017-12-26 08:46] LABS: OVALOCYTES SLIGHT
[2017-12-26 09:20] LABS: VENOUS BLOOD GAS BASE EXCESS 2.3 mmol/L (0.0-2.0); VENOUS BLOOD GAS PCO2 39 mmHg (40-60); VENOUS BLOOD GAS PO2 22 mm/Hg (30-55); VENOUS BLOOD PH 7.44 (7.32-7.43)
[2017-12-26] MEDS ORDERED: Sodium Chloride 0.9% 1,000 ML IV ONE (10:40)
[2017-12-26] MEDS: Acetylcysteine 20% Inhal Soln (4ml) PO SCH (10:43)
--- NOTE | 2017-12-26 11:59 | CP.PCM.PN ---
Subjective - Date & Time of Evaluation Date of Evaluation: 12/26/17 Time of Evaluation: 11:52 - Subjective Subjective: No events, hemoglobin stable, pain controlled with prn dilaudid, patient is awake, denies passing gas, denies nausea, abd distension unchanged as d/w nursing and patient. Labs reviewed. VS stable HEENT RICKY Neck Supple, left IJ tlc Chest clear CVS regular PA suture intact, no oozing, no tenderness, bs present Ext 2+ edema [employer]ER awake oriented x3 Assessment/Plan S/p hysterectomy for post bleeding with KAMI due to ATN, no hydro on CT and no pain on clinical exam, suggesting obstructive cause, hemodynamically stabilized. KAMI due to blood loss, started urinating still in ATN ? diuretic phase, no acidosis on chem and vbg patient euvolemic on exam, npo due to lack of passing gas, suggest only maintenance fluid, dc bicarb drip, ambulate as tolerated, gi stimulatory agents as per AGRI BUSINESS AGENT, can be down graded to regular floor if other faculties agree. Objective - Vital Signs/Intake and Output Vital Signs (last 24 hours): Temp Pulse Resp BP Pulse Ox 98.2 F 75 14 122/78 98 12/26/17 08:00 12/26/17 11:00 12/26/17 11:00 12/26/17 11:00 12/26/17 11:00 Intake and Output: 12/26/17 12/26/17 06:59 18:59 Intake Total 1100 825 Output Total 800 950 Balance 300 -125 - Medications Medications: Current Medications Acetaminophen (Tylenol 650 Mg Supp) 650 mg [place] Q6 PRN PRN Reason: Fever >100.4 F Hydromorphone HCl (Dilaudid) 0.5 mg IVP Q6H PRN PRN Reason: Pain, severe (8-10) Last Admin: 12/26/17 06:12 Dose: 0.5 mg Doxycycline Hyclate 100 mg/ (Sodium Chloride) 100 mls @ 100 mls/hr IVPB Q12H KELLEY PRN Reason: Protocol Last Admin: 12/26/17 05:27 Dose: 100 mls/hr Piperacillin Sod/Tazobactam Sod (Zosyn 2.25 Gm Iv Premix) 2.25 gm in 50 mls @ 100 mls/hr IVPB Q8H KELLEY PRN Reason: Protocol Last Admin: 12/26/17 08:52 Dose: 100 mls/hr Sodium Chloride (Sodium Chloride 0.9%) 1,000 mls @ 75 mls/hr IV .[id number] ONE Stop: 12/26/17 23:59 Simethicone (Mylicon Chew Tab) 80 mg PO Q8 KELLEY Last Admin: 12/26/17 05:27 Dose: 80 mg - Labs Labs: 12/26/17 06:10 12/26/17 06:12 PT 12.5 SECONDS (9.7-12.2) H 12/23/17 23:22 INR 1.1 12/23/17 23:22 APTT 31 SECONDS (21-34) 12/23/17 23:22
[2017-12-26] MEDS ORDERED: Magnesium Hydroxide Susp 30 ml UD PO ONE (14:02)
[2017-12-27] MEDS: HYDROmorphone 0.5 mg/0.5 ml ISec IVP PRN ×2 (00:24→07:47)
[2017-12-27] MEDS: Piperacill/Tazo 2.25gm in Dex 2.25 GM/50 ML BAG IVPB SCH ×2 (01:46→08:45)
[2017-12-27] MEDS: Simethicone 80 mg Chewtab PO SCH ×3 (05:44→23:00)
[2017-12-27 08:02] LABS: BASO # 0.1 K/uL (0.0-0.2); BASO % 0.9 % (0.0-2.0); EOS # 0.2 K/uL (0.0-0.7); HEMOGLOBIN 8.7 g/dL (11.0-16.0); LYMPH # 1.2 K/uL (1.0-4.3); LYMPH % 12.7 % (20.0-40.0); MEAN CELL VOLUME 85.5 fL (81.0-99.0); MEAN CORPUSCULAR HEMOGLOBIN 29.9 pg (27.0-31.0); MEAN PLATELET VOLUME 7.4 fL (7.2-11.7); MONO # 0.4 K/uL (0.0-0.8); MONO % 4.8 % (0.0-10.0); NEUT # 7.4 K/uL (1.8-7.0); NEUT % 79.6 % (50.0-75.0); NRBC % 0.1 % (0.0-2.0); RBC 2.9 Mil/uL (3.80-5.20); RED CELL DISTRIBUTION WIDTH 15.7 % (11.5-14.5); WHITE BLOOD COUNT 9.3 K/uL (4.8-10.8)
[2017-12-27 08:25] LABS: ALB/GLOB RATIO 1.1 (1.0-2.1); ALBUMIN 2.6 g/dL (3.5-5.0); CALCIUM 7.6 mg/dl (8.6-10.4)
--- NOTE | 2017-12-27 12:11 | CP.PCM.PN ---
Subjective - Date & Time of Evaluation Date of Evaluation: 12/27/17 Time of Evaluation: 12:08 - Subjective Subjective: Feels better Good UO- 1850ml/ 24 hrs BP stable creat sl better at 2.7 lytes reviewed- K 3.5 s/p hysterectomy for post bleeding Objective - Vital Signs/Intake and Output Vital Signs (last 24 hours): Temp Pulse Resp BP Pulse Ox 98.1 F 75 18 126/86 98 12/27/17 08:00 12/27/17 08:00 12/27/17 08:00 12/27/17 08:00 12/27/17 08:00 Intake and Output: 12/27/17 12/27/17 06:59 18:59 Intake Total 180 Balance 180 - Medications Medications: Current Medications Acetaminophen (Tylenol 650 Mg Supp) 650 mg [place] Q6 PRN PRN Reason: Fever >100.4 F Hydromorphone HCl (Dilaudid) 0.5 mg IVP Q6H PRN PRN Reason: Pain, severe (8-10) Last Admin: 12/27/17 07:47 Dose: 0.5 mg Simethicone (Mylicon Chew Tab) 80 mg PO Q8 KELLEY Last Admin: 12/27/17 05:44 Dose: 80 mg - Labs Labs: 12/27/17 07:55 12/27/17 07:55 PT 12.5 SECONDS (9.7-12.2) H 12/23/17 23:22 INR 1.1 12/23/17 23:22 APTT 31 SECONDS (21-34) 12/23/17 23:22 - Constitutional Appears: No Acute Distress, Chronically Ill - Head Exam Head Exam: ATRAUMATIC, NORMAL INSPECTION - Eye Exam Eye Exam: EOMI, Normal appearance - Neck Exam Neck Exam: Normal Inspection. absent: Tenderness - Respiratory Exam Respiratory Exam: Clear to Ausculation Bilateral, NORMAL BREATHING PATTERN - Cardiovascular Exam Cardiovascular Exam: REGULAR RHYTHM, +S1 - GI/Abdominal Exam GI & Abdominal Exam: Soft, Tenderness - Extremities Exam Extremities Exam: Pedal Edema. absent: Tenderness - Neurological Exam Neurological Exam: Alert, CN II-XII Intact - Skin Skin Exam: Dry, Warm Assessment and Plan (1) KAMI (acute kidney injury) Status: Acute (2) hemorrhage Status: Acute (3) S/P hysterectomy Status: Acute - Assessment and Plan (Free Text) Plan: Continue IV saline infusion Replete K recheck lytes renal US no need for MEAT PROCESSOR at this time
[2017-12-27] MEDS ORDERED: Potassium Chloride 10 mEq ER Tab PO ONE (13:30)
[2017-12-27] MEDS ORDERED: Oxycodone/Acetaminophen 5/325 mg Tab PO PRN (14:49)
[2017-12-27] MEDS: Oxycodone/Acetaminophen 5/325 mg Tab PO PRN (15:25)
--- NOTE | 2017-12-27 16:32 | US ---
PROCEDURE: Ultrasound of the Kidneys HISTORY: KAMI COMPARISON: CT abdomen & pelvis without contrast from 12/25/2017. TECHNIQUE: Sonogram of the kidneys. FINDINGS: RIGHT KIDNEY: Measures: 12.5 cm. Normal in size, contour with diffuse increased echogenicity. No stone, hydronephrosis visualized. LEFT KIDNEY: Measures: 12.1 cm. Normal in size, contour with diffuse increased echogenicity. No stone, solid mass lesion or hydronephrosis visualized. There is an apparent 3.1 x 2.9 x 2.8 cm heterogeneous predominantly isoechoic exophytic mass in the interpolar region with mild peripheral increased vascularity. OTHER FINDINGS: There is small right upper quadrant ascites. IMPRESSION: 1. 3.1 x 2.9 x 2.8 cm heterogeneous mass with peripheral increased vascularity in the right interpolar region. A dedicated CT/MRI scan of the abdomen without and with intravenous contrast with renal protocol is recommended for definitive evaluation. 2. Medical renal disease. No hydronephrosis.
--- NOTE | 2017-12-27 17:59 | CP.PCM.PN ---
Subjective - Date & Time of Evaluation Date of Evaluation: 12/26/17 Time of Evaluation: 21:00 - Subjective Subjective: pt evaluated dealyed entry pain cotnrolled no gas no bm light vg, goo dnurie ouputs Objective - Vital Signs/Intake and Output Vital Signs (last 24 hours): Temp Pulse Resp BP Pulse Ox 97.4 F L 75 20 126/77 100 12/27/17 16:00 12/27/17 16:00 12/27/17 16:00 12/27/17 16:00 12/27/17 16:00 Intake and Output: 12/27/17 12/27/17 06:59 18:59 Intake Total 180 Balance 180 - Medications Medications: Current Medications Acetaminophen (Tylenol 650 Mg Supp) 650 mg [place] Q6 PRN PRN Reason: Fever >100.4 F Acetaminophen (Tylenol 325mg Tab) 650 mg PO Q6 PRN PRN Reason: Pain, Mild (1-3) Oxycodone/Acetaminophen (Percocet 5/325 Mg Tab) 2 tab PO Q6H PRN PRN Reason: moderate to severe pain 5-10 Stop: 12/30/17 14:50 Last Admin: 12/27/17 15:25 Dose: 2 tab Simethicone (Mylicon Chew Tab) 80 mg PO Q8 KELLEY Last Admin: 12/27/17 12:59 Dose: 80 mg - Labs Labs: 12/27/17 07:55 12/27/17 07:55 PT 12.5 SECONDS (9.7-12.2) H 12/23/17 23:22 INR 1.1 12/23/17 23:22 APTT 31 SECONDS (21-34) 12/23/17 23:22 - Constitutional Appears: Well, Non-toxic - Head Exam Head Exam: NORMAL INSPECTION - Eye Exam Eye Exam: Normal appearance - ENT Exam ENT Exam: Mucous Membranes Moist - Neck Exam Neck Exam: Normal Inspection - Respiratory Exam Respiratory Exam: Clear to Ausculation Bilateral, NORMAL BREATHING PATTERN - Cardiovascular Exam Cardiovascular Exam: +S1, +S2 - GI/Abdominal Exam GI & Abdominal Exam: Soft, Normal Bowel Sounds. absent: Bruit, Distended, Firm , Guarding, Rigid, Tenderness, Diminished Bowel Sounds, Hernia, Hyperactive Bowel Sounds, Hypoactive Bowel Sounds, Organomegaly, Pulsatile Mass, Rebound, Mass Additional comments: incison c/d/i y no ingla bleeidng epistosim site c//di - Extremities Exam Additional comments: negative trevor sign - Back Exam Back Exam: NORMAL INSPECTION. absent: CVA tenderness (L), CVA tenderness (R), Full ROM, muscle spasm, paraspinal tenderness, rash noted, tenderness, vertebral tenderness Assessment and Plan (1) Uterine atony Assessment & Plan: s/p postparutm hysterecotmy pod #4 -pian amgnent -bowel regimen -KAMI: f/u labs, IVH s/P neproglsyt cnsutl s/ pct scsn -urine outputpu insout -encourage mabioatn -incneeice psiromte -possible downgrade Status: Acute
--- NOTE | 2017-12-27 18:02 | CP.PCM.PN ---
Subjective - Date & Time of Evaluation Date of Evaluation: 12/27/17 Time of Evaluation: 08:30 - Subjective Subjective: Dealyed entry: pt seen and examiend in bed, [facility]n, voidng wihtout difficlyt, ambaitong, +BM loose no fever, chills, nasue vomiting cp, sob Objective - Vital Signs/Intake and Output Vital Signs (last 24 hours): Temp Pulse Resp BP Pulse Ox 97.4 F L 75 20 126/77 100 12/27/17 16:00 12/27/17 16:00 12/27/17 16:00 12/27/17 16:00 12/27/17 16:00 Intake and Output: 12/27/17 12/27/17 06:59 18:59 Intake Total 180 Balance 180 - Medications Medications: Current Medications Acetaminophen (Tylenol 650 Mg Supp) 650 mg IN Q6 PRN PRN Reason: Fever >100.4 F Acetaminophen (Tylenol 325mg Tab) 650 mg PO Q6 PRN PRN Reason: Pain, Mild (1-3) Oxycodone/Acetaminophen (Percocet 5/325 Mg Tab) 2 tab PO Q6H PRN PRN Reason: moderate to severe pain 5-10 Stop: 12/30/17 14:50 Last Admin: 12/27/17 15:25 Dose: 2 tab Simethicone (Mylicon Chew Tab) 80 mg PO Q8 KELLEY Last Admin: 12/27/17 12:59 Dose: 80 mg - Labs Labs: 12/27/17 07:55 12/27/17 07:55 PT 12.5 SECONDS (9.7-12.2) H 12/23/17 23:22 INR 1.1 12/23/17 23:22 APTT 31 SECONDS (21-34) 12/23/17 23:22 - Constitutional Appears: Non-toxic, Toxic - Head Exam Head Exam: NORMAL INSPECTION - Eye Exam Eye Exam: EOMI - ENT Exam ENT Exam: Mucous Membranes Moist - Neck Exam Neck Exam: Full ROM - Respiratory Exam Respiratory Exam: Clear to Ausculation Bilateral, NORMAL BREATHING PATTERN - Cardiovascular Exam Cardiovascular Exam: REGULAR RHYTHM, +S1, +S2 - GI/Abdominal Exam GI & Abdominal Exam: Soft, Normal Bowel Sounds Additional comments: nt, no guarding, no reoubd tendnere, no rigidty ve; minila lochail non fouol smeling, epistiosm ysite c//di - Back Exam Back Exam: NORMAL INSPECTION. absent: CVA tenderness (L), CVA tenderness (R), Full ROM, muscle spasm, paraspinal tenderness, rash noted, tenderness, vertebral tenderness - Neurological Exam Neurological Exam: Alert, Awake, Oriented x3 - Psychiatric Exam Psychiatric exam: Normal Affect, Normal Mood - Skin Skin Exam: Dry, Intact, Normal Color, Warm - Additional Findings Additional findings: negative yi sign Assessment and Plan (1) Uterine atony Assessment & Plan: s/p hystrecotmy secondary t outerine atony POD #5, improving -s/p ICU -Pain managment -Regeular diet -Acute kidneuy insurat: s/p neprhogly evluatin appreciated, f/u am labs -incentive spiroemter -encourage mabaiotn out of bed -Loos bm: C Diff, no laxative -cont routine post op mannte -am labs Status: Acute
[2017-12-28] MEDS: Simethicone 80 mg Chewtab PO SCH (05:34)
[2017-12-28 06:33] LABS: MEAN CELL VOLUME 85.5 fL (81.0-99.0); MEAN CORPUSCULAR HEMOGLOBIN 30.2 pg (27.0-31.0); MEAN CORPUSCULAR HGB CONC 35.4 g/dL (33.0-37.0); MEAN PLATELET VOLUME 7.4 fL (7.2-11.7); RBC 2.65 Mil/uL (3.80-5.20); RED CELL DISTRIBUTION WIDTH 15.3 % (11.5-14.5); WHITE BLOOD COUNT 7.7 K/uL (4.8-10.8)
[2017-12-28 06:56] LABS: ALBUMIN 2.3 g/dL (3.5-5.0); CALCIUM 7.5 mg/dl (8.6-10.4)
[2017-12-28 10:00] VITALS: RESP 18; O2SAT 100
--- NOTE | 2017-12-28 10:19 | CP.PCM.PN ---
Subjective - Date & Time of Evaluation Date of Evaluation: 12/28/17 Time of Evaluation: 10:18 - Subjective Subjective: seen and examined good uop 1.2L charted labs noted feels well denies any abd pain dysuria hematuria fevers chills n/v/d +leg swelling Objective - Vital Signs/Intake and Output Vital Signs (last 24 hours): Temp Pulse Resp BP Pulse Ox 98.4 F 70 18 129/77 100 12/28/17 08:00 12/28/17 08:00 12/28/17 08:00 12/28/17 08:00 12/28/17 08:00 - Medications Medications: Current Medications Acetaminophen (Tylenol 650 Mg Supp) 650 mg [place] Q6 PRN PRN Reason: Fever >100.4 F Acetaminophen (Tylenol 325mg Tab) 650 mg PO Q6 PRN PRN Reason: Pain, Mild (1-3) Oxycodone/Acetaminophen (Percocet 5/325 Mg Tab) 2 tab PO Q6H PRN PRN Reason: moderate to severe pain 5-10 Stop: 12/30/17 14:50 Last Admin: 12/27/17 15:25 Dose: 2 tab Simethicone (Mylicon Chew Tab) 80 mg PO Q8 KELLEY Last Admin: 12/28/17 05:34 Dose: 80 mg - Labs Labs: 12/28/17 06:26 12/28/17 06:26 PT 12.5 SECONDS (9.7-12.2) H 12/23/17 23:22 INR 1.1 12/23/17 23:22 APTT 31 SECONDS (21-34) 12/23/17 23:22 - Constitutional Appears: Non-toxic, No Acute Distress - Head Exam Head Exam: NORMAL INSPECTION, NORMOCEPHALIC - Eye Exam Eye Exam: Normal appearance Pupil Exam: NORMAL ACCOMODATION - ENT Exam ENT Exam: Mucous Membranes Moist, Normal Exam - Neck Exam Neck Exam: Full ROM, Normal Inspection - Respiratory Exam Respiratory Exam: Clear to Ausculation Bilateral, NORMAL BREATHING PATTERN - Cardiovascular Exam Cardiovascular Exam: REGULAR RHYTHM, RRR - GI/Abdominal Exam GI & Abdominal Exam: Distended, Soft - Extremities Exam Extremities Exam: Normal Inspection, Pedal Edema (3+) - Neurological Exam Neurological Exam: Alert, Awake, Oriented x3 - Psychiatric Exam Psychiatric exam: Normal Affect, Normal Mood - Skin Skin Exam: Dry, Intact Assessment and Plan (1) KAMI (acute kidney injury) Status: Acute (2) hemorrhage Status: Acute (3) S/P hysterectomy Status: Acute - Assessment and Plan (Free Text) Assessment: improving renal function, off iv fluids encourage po intake once dose of lasix today, may be prescribed outpt lasix after checking bmp. bmp ordered to be done in 1-2 days f/u in office
[2017-12-28] MEDS: Oxycodone/Acetaminophen 5/325 mg Tab PO PRN (10:58)
[2017-12-28 14:24] LABS: FACTOR VIII ACTIVITY 157 % (50-180); VON WILLERBRAND FACTOR AG 361 % (50-217)
--- NOTE | 2017-12-28 20:00 | CP.PCM.PN ---
Subjective - Date & Time of Evaluation Date of Evaluation: 12/28/17 Time of Evaluation: 13:30 - Subjective Subjective: Pt seen and examiend and reports feelign better. pt preorts pian is contorlled, pt ambuaitng, voidg, passing fltaus, +BM reugalr no fever, chills, naues, ovmiting, cp, sob. pt is clared by renal for dischrge Objective - Vital Signs/Intake and Output Vital Signs (last 24 hours): Temp Pulse Resp BP Pulse Ox 97.5 F L 74 18 139/88 100 12/28/17 16:00 12/28/17 16:00 12/28/17 16:00 12/28/17 16:00 12/28/17 16:00 - Labs Labs: 12/28/17 06:26 12/28/17 06:26 PT 12.5 SECONDS (9.7-12.2) H 12/23/17 23:22 INR 1.1 12/23/17 23:22 APTT 31 SECONDS (21-34) 12/23/17 23:22 - Head Exam Head Exam: ATRAUMATIC, NORMAL INSPECTION - Eye Exam Eye Exam: EOMI Pupil Exam: NORMAL ACCOMODATION - ENT Exam ENT Exam: Mucous Membranes Moist - Neck Exam Neck Exam: Normal Inspection - Respiratory Exam Respiratory Exam: Clear to Ausculation Bilateral - Cardiovascular Exam Cardiovascular Exam: +S1, +S2 - GI/Abdominal Exam GI & Abdominal Exam: Soft, Normal Bowel Sounds. absent: Bruit, Distended, Firm , Guarding, Rigid, Tenderness, Diminished Bowel Sounds, Hernia, Hyperactive Bowel Sounds, Hypoactive Bowel Sounds, Organomegaly, Pulsatile Mass, Rebound, Mass Additional comments: in cison c/d/ih arnoldo inctac ve; epistiomy site c/d/i healing well no vaigna llbeeidng - Back Exam Back Exam: NORMAL INSPECTION. 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
--- NOTE | 2017-12-28 20:03 | CP.PCM.DIS ---
Provider - Provider Date of Admission: 12/22/17 21:38 Attending physician: Christy Emmanuel MD Time Spent in preparation of Discharge (in minutes): 40 Diagnosis - Discharge Diagnosis (1) Uterine atony Status: Acute Priority: Medium Hospital Course - Lab Results Lab Results: Micro Results 12/27/17 08:04 Nose MRSA Culture (Admit) - Final MRSA NOT DETECTED 12/23/17 20:20 Urine Urine Culture - Final No Growth (<1,000 CFU/ML) 12/23/17 18:27 Nose MRSA Culture (Admit) - Final MRSA NOT DETECTED Most Recent Lab Values WBC 7.7 K/uL (4.8-10.8) 12/28/17 06:26 RBC 2.65 Mil/uL (3.80-5.20) L 12/28/17 06:26 Hgb 8.0 g/dL (11.0-16.0) L 12/28/17 06:26 Hct 22.7 % (34.0-47.0) L 12/28/17 06:26 MCV 85.5 fL (81.0-99.0) 12/28/17 06:26 MCH 30.2 pg (27.0-31.0) 12/28/17 06:26 MCHC 35.4 g/dL (33.0-37.0) 12/28/17 06:26 RDW 15.3 % (11.5-14.5) H 12/28/17 06:26 Plt Count 235 K/uL (130-400) 12/28/17 06:26 MPV 7.4 fL (7.2-11.7) 12/28/17 06:26 Neut % (Auto) 79.6 % (50.0-75.0) H 12/27/17 07:55 Lymph % (Auto) 12.7 % (20.0-40.0) L 12/27/17 07:55 [place] % (Auto) 4.8 % (0.0-10.0) 12/27/17 07:55 Eos % (Auto) 2.0 % (0.0-4.0) 12/27/17 07:55 Baso % (Auto) 0.9 % (0.0-2.0) 12/27/17 07:55 Neut # (Auto) 7.4 K/uL (1.8-7.0) H 12/27/17 07:55 Lymph # (Auto) 1.2 K/uL (1.0-4.3) 12/27/17 07:55 [place] # (Auto) 0.4 K/uL (0.0-0.8) 12/27/17 07:55 Eos # (Auto) 0.2 K/uL (0.0-0.7) 12/27/17 07:55 Baso # (Auto) 0.1 K/uL (0.0-0.2) 12/27/17 07:55 Neutrophils % (Manual) 83 % (50-75) H 12/26/17 06:10 Band Neutrophils % 1 % (0-2) 12/26/17 06:10 Lymphocytes % (Manual) 12 % (20-40) L 12/26/17 06:10 Monocytes % (Manual) 4 % (0-10) 12/26/17 06:10 Metamyelocytes % 2 % (0-0) H 12/23/17 20:20 Platelet Estimate Normal (NORMAL) 12/26/17 06:10 Large Platelets Present 12/26/17 06:10 Hypochromasia (manual) Slight 12/24/17 04:33 Poikilocytosis (manual Slight 12/24/17 18:03 Anisocytosis (manual) Slight 12/26/17 06:10 Ovalocytes Slight 12/26/17 06:10 PT 12.5 SECONDS (9.7-12.2) H 12/23/17 23:22 INR 1.1 12/23/17 23:22 APTT 31 SECONDS (21-34) 12/23/17 23:22 Fibrinogen 356 mg/dL (200-400) D 12/24/17 04:33 Factor VIII Activity 157 % (50-180) 12/23/17 19:03 Factor VIII Antigen 361 % (50-217) H 12/23/17 19:03 vWF Ristocetin Cofactr 278 % (42-200) H 12/23/17 19:03 Puncture Site [place] 12/24/17 05:06 pCO2 32 mm/Hg (35-45) L 12/24/17 05:06 pO2 22 mm/Hg (30-55) L 12/26/17 09:16 HCO3 19.7 mmol/L (21-28) L 12/24/17 05:06 ABG pH 7.35 (7.35-7.45) 12/24/17 05:06 ABG Total CO2 18.7 mmol/L (22-28) L 12/24/17 05:06 ABG O2 Saturation 99.0 % (95-98) H 12/24/17 05:06 ABG Base Excess -6.8 mmol/L (-2.0-3.0) L 12/24/17 05:06 Gabriel Test Na 12/24/17 05:06 ABG Potassium 5.1 mmol/L (3.6-5.2) 12/24/17 05:06 VBG pH 7.44 (7.32-7.43) H 12/26/17 09:16 VBG pCO2 39 mmHg (40-60) L 12/26/17 09:16 VBG HCO3 25.2 mmol/L 12/26/17 09:16 VBG Total CO2 27.7 mmol/L (22-28) 12/26/17 09:16 VBG O2 Sat (Calc) 62.0 % (40-65) 12/26/17 09:16 VBG Base Excess 2.3 mmol/L (0.0-2.0) H 12/26/17 09:16 VBG Potassium 3.7 mmol/L (3.6-5.2) 12/26/17 09:16 A-a O2 Difference 14.0 mm/Hg 12/24/17 05:06 Respiratory Index 0.1 12/24/17 05:06 Sodium 141.0 mmol/l (132-148) 12/26/17 09:16 Chloride 111.0 mmol/L (98-107) H 12/26/17 09:16 Glucose 100 mg/dl (65-105) 12/26/17 09:16 Lactate 0.7 mmol/L (0.7-2.1) 12/26/17 09:16 Vent Mode Prvc 12/24/17 05:06 Mechanical Rate 22 12/24/17 05:06 FiO2 40.0 % 12/24/17 05:06 Tidal Volume 400 12/24/17 05:06 PEEP 5 12/24/17 05:06 Sodium 141 mmol/L (132-148) 12/28/17 06:26 Potassium 3.6 mmol/L (3.6-5.2) 12/28/17 06:26 Chloride 108 mmol/L (98-107) H 12/28/17 06:26 Carbon Dioxide 26 mmol/L (22-30) 12/28/17 06:26 Anion Gap 11 (10-20) 12/28/17 06:26 BUN 22 mg/dL (7-17) H 12/28/17 06:26 Creatinine 2.4 mg/dL (0.7-1.2) H 12/28/17 06:26 Est GFR ( Amer) 27 12/28/17 06:26 Est GFR (Non-Af Amer) 23 12/28/17 06:26 POC Glucose (mg/dL) 102 mg/dL (65-110) 12/26/17 17:39 Random Glucose 68 mg/dL (65-105) 12/28/17 06:26 Serum Osmolality 291 mosm/kg (272-300) 12/25/17 10:01 Lactic Acid 1.3 mmol/L (0.7-2.1) 12/24/17 04:33 Calcium 7.5 mg/dl (8.6-10.4) L 12/28/17 06:26 Phosphorus 4.6 mg/dL (2.5-4.5) H 12/28/17 06:26 Magnesium 1.7 mg/dL (1.6-2.3) 12/28/17 06:26 Total Bilirubin 0.5 mg/dL (0.2-1.3) 12/28/17 06:26 AST 53 U/L (14-36) H D 12/28/17 06:26 ALT 30 U/L (9-52) 12/28/17 06:26 Alkaline Phosphatase 59 U/L (38-126) 12/28/17 06:26 Troponin I 0.0550 ng/mL (0.00-0.120) 12/23/17 14:04 NT-Pro-B Natriuret Pep 53.6 pg/mL (0-450) 12/23/17 14:04 Total Protein 4.6 g/dL (6.3-8.3) L 12/28/17 06:26 Albumin 2.3 g/dL (3.5-5.0) L 12/28/17 06:26 Globulin 2.3 gm/dL (2.2-3.9) 12/28/17 06:26 Albumin/Globulin Ratio 1.0 (1.0-2.1) 12/28/17 06:26 Arterial Blood Potassium 5.1 mmol/L (3.6-5.2) 12/24/17 05:06 Venous Blood Potassium 3.7 mmol/L (3.6-5.2) 12/26/17 09:16 Urine Color Straw (YELLOW) 12/25/17 12:44 Urine Clarity Clear (Clear) 12/25/17 12:44 Urine pH 5.0 (5.0-8.0) 12/25/17 12:44 Ur Specific Allgood 1.009 (1.003-1.030) 12/25/17 12:44 Urine Protein Negative mg/dL (NEGATIVE) 12/25/17 12:44 Urine Glucose (UA) Normal mg/dL (Normal) 12/25/17 12:44 Urine Ketones Negative mg/dL (NEGATIVE) 12/25/17 12:44 Urine Blood 2+ (NEGATIVE) H 12/25/17 12:44 Urine Nitrate Negative (NEGATIVE) 12/25/17 12:44 Urine Bilirubin Negative (NEGATIVE) 12/25/17 12:44 Urine Urobilinogen Normal mg/dL (0.2-1.0) 12/25/17 12:44 Ur Leukocyte Esterase Neg Mahesh/uL (Negative) 12/25/17 12:44 Urine WBC (Auto) 4 /hpf (0-5) 12/25/17 12:44 Urine RBC (Auto) 14 /hpf (0-3) H 12/25/17 12:44 Ur Squamous Epith Cells < 1 /hpf (0-5) 12/25/17 12:44 Urine Bacteria Rare (<OCC) 12/23/17 10:09 Urine Osmolality 290 mosm/kg (300-1000) L 12/25/17 13:21 Ur Random Creatinine 41.7 mg/dL 12/25/17 13:21 Ur Random Sodium 87 mmol/L 12/25/17 13:21 Urine Chloride 79 mmol/L (32-290) 12/25/17 13:03 Random Vancomycin 11.9 ug/mL 12/24/17 10:53 RPR Nonreactive (NONREACTIVE) 12/23/17 10:09 C. difficile Ag & Toxin Negative (NEGATIVE) 12/27/17 12:52 Hep Bs Antigen Negative (NEGATIVE) 12/23/17 10:09 Rubella IgG Antibody Positive (POSITIVE) 12/23/17 10:09 Blood Type B POSITIVE 12/23/17 11:12 Antibody Screen Negative 12/23/17 11:12 - Hospital Course Hospital Course: admitted for IOL post edc s/p vacuman assistned vaignal delivery pph non responsive to medical theryap or for eua s/p repair of [facility] lac[facility] and blood products tranfsion ex lap hysterectomy 5 units probs 2 ffp intraop icu care thr -wednesday new onset of acute kidney disease, highest creatine 3.1 s/p blood, s/p nehrolgoy and icu consut downgraded sun evening dc home wednesday preciaotn givne renal us with mass f/u o/p wihte nehrolgoy Discharge Exam - Head Exam Head Exam: ATRAUMATIC, NORMAL INSPECTION Discharge Plan - Discharge Medications Prescriptions: oxyCODONE/Acetaminophen [Percocet 5/325 mg Tab] 1 ea PO Q6 PRN #20 tab PRN Reason: pain - Follow Up Plan Condition: GOOD Disposition: HOME/ ROUTINE Instructions: Blood Transfusion , Control for Women, Shock , Hemorrhage, Jaundice, Babies (DC), Depression (DC), Hysterectomy (DC), Vaginal Delivery (DC), Breast Care for the Woman, Pumping Breast Milk, Common Problems, Disseminated Intravascular Coagulation (DC), Health and Nutrition for Women Who Breastfeed, Medicine and , Bleeding, What to Watch for After You Have a Baby Referrals: Concepción Mcnamara MD [Staff Provider] -
[2017-12-29 15:58] VITALS: BP 129/77; PULSE 70; TEMP 98.4
== END 2017-12-28 16:50 | disposition home or self-care (01) | DRG 375 ==
LOC: C.EROB 19:40 → C.4D 21:38 → C.9I 12-23 14:16 → C.4M 12-26 21:49
PROVIDERS: ADMIT Obstetrics & Gynecology; ATTEND Obstetrics & Gynecology
PROC: 0W8NXZZ Division of Female Perineum, External Approach (ICD-10-PCS; principal; 2017-12-23)
PROC: 0UT90ZL Resection of Uterus, Supracervical, Open Approach (ICD-10-PCS; 2017-12-23)
PROC: 0UQC7ZZ Repair Cervix, Via Natural or Artificial Opening (ICD-10-PCS; 2017-12-23)
PROC: 10907ZC Drainage of Amniotic Fluid, Therapeutic from Products of Conception, Via Natural or Artificial Opening (ICD-10-PCS; 2017-12-23)
PROC: 10E0XZZ Delivery of Products of Conception, External Approach (ICD-10-PCS; 2017-12-23)
PROC: 30233K1 Transfusion of Nonautologous Frozen Plasma into Peripheral Vein, Percutaneous Approach (ICD-10-PCS; 2017-12-23)
PROC: 30233N1 Transfusion of Nonautologous Red Blood Cells into Peripheral Vein, Percutaneous Approach (ICD-10-PCS; 2017-12-23)
DX: O66.0 Obstructed labor due to shoulder dystocia (principal); O99.42 Diseases of the circulatory system complicating childbirth; D65 Disseminated intravascular coagulation [defibrination syndrome]; N17.0 Acute kidney failure with tubular necrosis; R57.1 Hypovolemic shock; F41.9 Anxiety disorder, unspecified; J45.909 Unspecified asthma, uncomplicated; O26.833 Pregnancy related renal disease, third trimester; O48.0 Post-term pregnancy; O69.1XX0 Labor and delivery complicated by cord around neck, with compression, not applicable or unspecified; O72.1 Other immediate postpartum hemorrhage; O99.12 Other diseases of the blood and blood-forming organs and certain disorders involving the immune mechanism complicating childbirth; O71.3 Obstetric laceration of cervix; O76 Abnormality in fetal heart rate and rhythm complicating labor and delivery; O99.52 Diseases of the respiratory system complicating childbirth; O99.62 Diseases of the digestive system complicating childbirth; Z3A.41 41 weeks gestation of pregnancy; Z37.0 Single live birth

== ENCOUNTER 2018-03-10 10:16 | Emergency (ER) | payer MEDICAID, OTHER ==
[2018-03-10 10:19] VITALS: O2SAT 99
--- NOTE | 2018-03-10 11:21 | C.PDOC ---
History Of Present Illness 38 y/o female presents to the ED complaining of vaginal bleeding for four days that began after intercourse. The patient reports having a hysterectomy done on 2017 for vaginal bleeding and uterine atony s/p vaginal delivery. . She states she has been using 1 pad a day. The patient denies any clots or tissue within the bleeding. She also denies any fever, abdominal pain or urinary symptoms. Time Seen by Provider: 03/10/18 10:49 Chief Complaint (Nursing): Female Genitourinary History Per: Patient History/Exam Limitations: no limitations Onset/Duration Of Symptoms: Days Current Symptoms Are (Timing): Still Present Associated Symptoms: denies: Fever, Urinary Symptoms Recent travel outside of the [place]: No Past Medical History Reviewed: Historical Data, Nursing Documentation, Vital Signs Vital Signs: Last Vital Signs Temp 97.6 F 03/10/18 12:37 Pulse 55 L 03/10/18 12:37 Resp 18 03/10/18 12:40 BP 120/83 03/10/18 12:37 Pulse Ox 99 03/11/18 18:22 - Medical History PMH: Asthma Denies: Depression, Diabetes, HTN Other Surgeries: Hysterectomy - [facility] (12/22/17) DELIVERY OF PRODUCTS OF CONCEPTION, EXTERNAL APPROACH (12/22/17) DIVISION OF FEMALE PERINEUM, EXTERNAL APPROACH (12/22/17) DRAINAGE OF AMNIOTIC FL, THERAP FROM POC, VIA OPENING (12/22/17) REPAIR CERVIX, VIA NATURAL OR ARTIFICIAL OPENING (12/22/17) TRANSFUSE NONAUT FROZEN PLASMA IN PERIPH VEIN, PERC (12/22/17) TRANSFUSE NONAUT RED BLOOD CELLS IN PERIPH VEIN, PERC (12/22/17) Family History: States: Unknown Family Hx - Social History Hx Alcohol Use: No Hx Substance Use: No - Immunization History Hx Tetanus Toxoid Vaccination: No Hx Influenza Vaccination: No Hx Pneumococcal Vaccination: No Review Of Systems Constitutional: Negative for: Fever, Chills Gastrointestinal: Negative for: Abdominal Pain Genitourinary: Positive for: Vaginal Bleeding. Negative for: Dysuria, Frequency , Incontinence, Vaginal Discharge, Other (urinary symtpoms ) Neurological: Negative for: Weakness Physical Exam - Physical Exam Appears: Well, No Acute Distress Skin: Warm, Dry Head: Atraumatic, Normacephalic Oral Mucosa: Moist Neck: Supple Chest: Symmetrical, No Tenderness Cardiovascular: Rhythm Regular, No Murmur Respiratory: No Rales, No Rhonchi, No Wheezing, Other (Clear to auscultation bilaterally) Gastrointestinal/Abdominal: Bowel Sounds, Soft, No Tenderness, No Guarding, No Rebound, Other (Normoactive bowel sounds) Back: No CVA Tenderness Pelvic: Vaginal Bleeding (small amount of blood seen at posterior end of vaginal canal. Unable to visualize well source of blood.) Extremity: No Calf Tenderness, No Swelling Extremity: Bilateral: Normal Color And Temperature, Normal ROM Neurological/Psych: Other ( Alert, no gross focal deficit) ED Course And Treatment - Laboratory Results Result Diagrams: 03/10/18 11:39 O2 Sat by Pulse Oximetry: 99 (RA) Pulse Ox Interpretation: Normal Medical Decision Making Medical Decision Making: Impression: 38 y/o female with vaginal bleeding and a surgical hx of hysterectomy Plan: * CBC * UA 1203-- Discussed Pt with Dr. Horace Emmanuel and agreed on discharged. Patient was advised to undergo pelvic rest. 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 Disposition Discussed With Dr.: Christy Emmanuel Doctor Will See Patient In The: Office Counseled Patient/Family Regarding: Studies Performed, Diagnosis, Need For Followup - Disposition Referrals: Christy Emmanuel MD [Staff Provider] - Disposition: HOME/ ROUTINE Disposition Time: 12:21 Condition: GOOD Additional Instructions: Pelvic rest- nothing in vagina. no sex tampons or douching. Make an appointment to see Dr Emmanuel next week. Return to ER for any heavy vaginal bleeding, abdominal pain or other concerns. Instructions: Heavy Periods (DC) Forms: [facility] (Frisian), General Discharge Instructions - Clinical Impression Clinical Impression: Abnormal vaginal bleeding - PA / DIRECTOR OF INFECTION PREVENTION / Resident Statement MD/DO has reviewed & agrees with the documentation as recorded. - Scribe Statement The provider has reviewed the documentation as recorded by the Scribe (Radha Belle) All medical record entries made by the Scribe were at my direction and personally dictated by me. I have reviewed the chart and agree that the record accurately reflects my personal performance of the history, physical exam, medical decision making, and the department course for this patient. I have also personally directed, reviewed, and agree with the discharge instructions and disposition.
[2018-03-10 11:53] LABS: BASO % 0.4 % (0.0-2.0); EOS # 0.2 K/uL (0.0-0.7); EOS % 4.7 % (0.0-4.0); LYMPH # 1.8 K/uL (1.0-4.3); LYMPH % 45.2 % (20.0-40.0); MEAN CORPUSCULAR HEMOGLOBIN 26.9 pg (27.0-31.0); MEAN CORPUSCULAR HGB CONC 33.5 g/dL (33.0-37.0); MEAN PLATELET VOLUME 7.4 fL (7.2-11.7); MONO # 0.2 K/uL (0.0-0.8); MONO % 5.5 % (0.0-10.0); NEUT # 1.7 K/uL (1.8-7.0); NEUT % 44.2 % (50.0-75.0); NRBC % 0.2 % (0.0-2.0); RBC 5.06 Mil/uL (3.80-5.20); RED CELL DISTRIBUTION WIDTH 15.4 % (11.5-14.5); WHITE BLOOD COUNT 3.9 K/uL (4.8-10.8)
[2018-03-10 12:01] LABS: HEMOGLOBIN 13.6 g/dL (11.0-16.0); MEAN CELL VOLUME 80.4 fL (81.0-99.0)
[2018-03-10 12:31] LABS: URINE BILIRUBIN NEGATIVE (NEGATIVE); URINE BLOOD LARGE (NEGATIVE); URINE CLARITY Clear (Clear); URINE COLOR YELLOW (YELLOW); URINE GLUCOSE (UA) NEGATIVE (Normal)
[2018-03-10 12:32] LABS: PH,URINE 6.5 (5.0-8.0); SQUAMOUS EPITHIAL 5 /hpf (0-5); URINE LEUKOCYTE ESTERASE NEGATIVE Leu/uL (Negative); URINE PROTEIN NEGATIVE (NEGATIVE); URINE UROBILINOGEN 0.2 mg/dL (0.2-1.0)
[2018-03-10 12:37] VITALS: BP 120/83; PULSE 55; RESP 18; TEMP 97.6
== END 2018-03-10 12:43 | disposition home or self-care (01) ==
LOC: C.ER 10:16
DX: N93.9 Abnormal uterine and vaginal bleeding, unspecified (principal)